=== PATIENT | male | born 1955 | race Caucasian/White ===

== ENCOUNTER 2023-06-16 07:48 | Outpatient (RCR) | payer MEDICARE, OTHER, SELFPAY ==
[2023-06-01 11:34] LABS: Mean Corp Hgb Conc. 33.5 g/dL (33.0-37.0); Mean Corpuscular Hgb 28.8 pg (27.0-31.0); Mean Corpuscular Volume 85.9 fL (80.0-94.0); Red Blood Cell Count 1.98 10^6/uL (4.70-6.10); Red Cell Dist. Width 14.9 % (11.5-14.5)
[2023-06-01 11:42] LABS: Hemoglobin 5.7 g/dL (13.0-18.0)
[2023-06-01 12:25] LABS: % Basophils 0.3 % (0-2); % Immature Granulocytes 1.3 % (0-0.5); % Lymphocytes 32.8 % (20.5-51.1); % Neutrophils 55.6 % (42.2-75.2); Absolute Monocytes 0.3 10^3/uL (0.1-0.6); Absolute Neutrophils 1.7 10^3/uL (1.4-6.5); Nucleated Red Blood Cells % 0 % (-)
[2023-06-01 13:40] LABS: Platelet Count 4 10^3/uL (130-400)
[2023-06-16] VITALS (7 sets, daily range): BP systolic 99–122; BP diastolic 45–60
== END 2023-06-29 23:59 | disposition home or self-care (01) ==
LOC: OID 07:48
PROVIDERS: ATTENDING PHYSICIAN Internal Medicine Hematology & Oncology; FAMILY PHYSICIAN Family Medicine
DX: D64.9 Anemia, unspecified (principal); D46.A Refractory cytopenia with multilineage dysplasia (principal); D61.818 Other pancytopenia
CPT/HCPCS: 36415; 36430; 85025; 86850; 86900; 86901; 86920; P9016

== ENCOUNTER 2023-06-28 18:05 | Inpatient (IN) | payer MEDICARE, OTHER, SELFPAY ==
[2023-06-28] VITALS (14 sets, daily range): BP systolic 102–115; BP diastolic 48–58; BMI 32.3
--- NOTE | 2023-06-28 16:15 | ED.GENMED ---
History of Present Illness
General
Chief Complaint: Abnormal Lab Value
Source: patient
Exam Limitations: none
Time Seen by Provider: 06/28/23 15:47
Nursing documentation reviewed up to this point in time: agreed with
Travel History
Have you had any contact with someone who has COVID-19?: No
Do you have any symptoms of coronavirus? Fever > 100 degrees, chills, cough, shortness of breath, sore throat, loss of taste or smell, muscle aches, or headache?: No
History of Present Illness
History of Present Illness:
Patient to ED with complaint of weakness, fatigue, dizziness, palpitations. Currently receiving treatment for myelodysplastic syndrome. Follows with Dr. Jensen. He was seen in ED Jun 01 for platelet and PRBC tranfusion. He states he was
transfused again 2 weeks later. Today was feeling poorly. Had outpatient labs completed which reveal Hgb 5.1, hct 15, platelets 1, wbc1.8. No fever/chills. Brought self to ED for eval.
Past History
Past History
ED Past Medical History: Asthma and Other (Myelodysplastic syndrome)
ED Past Surgical History: Cholecystectomy
Social History
Tobacco: Non-smoker
Alcohol: None
Drug: None
Personal:
Living: with family
Review of Systems
Review of Systems
Allergies reviewed?: Yes
All Other Systems: ROS reviewed and negative except as documented in HPI and ROS
Constitutional: Reports fatigue
EENT: Reports no symptoms
Respiratory: Reports no symptoms
Cardiac: Reports no symptoms
ABD/GI: Reports no symptoms
: Reports no symptoms
Musculoskeletal: Reports no symptoms
Skin: Reports no symptoms
Neurological: Reports dizzy and weakness
Psychiatric: Reports no symptoms
Phy Exam
General Physical Exam
General Presentation: well appearing and mild distress
General age: appears stated age
General Skin: warm
General Habitus: normal
General Mental: alert
Cardiovascular Exam
Cardiovascular Exam: regular rate/rhythm and no edema
Pulmonary Exam
Pulmonary Exam: lungs clear and no respiratory distress
Gastrointestinal Exam
Gastrointestinal Exam: normal bowel sounds, non tender, soft and no organomegaly
Musculoskeletal Exam
Musculoskeletal Exam: full ROM and neuro vasc intact
Skin Exam
Skin Exam: normal color, warm/dry and no rash
Psychiatric Exam
Psychiatric Exam: normal mood/affect
Course
Orders/Labs/Results
Orders:
Orders
06/28/23 Dinner
Regular
At Your Request: Limited, Bellows Filler Required
06/28/23 16:04
* Blood Bank Products Urgent
Blood Bank Products: *Packed RBC Leuko(PRBC's)
Quantity: 2
Transfuse Today: Yes
Reason: Anemia
06/28/23 16:07
* Blood Bank Products Urgent
Blood Bank Products: *Plt Single Donor Leuko
Quantity: 1
Transfuse Today: Yes
Reason: Anemia
06/28/23 16:40
CBC/With Diff [Complete Blood Count/With Diff] Urgent
Comprehensive Metabolic Panel Urgent
06/28/23 16:41
Type And Crossmatch Urgent
06/28/23 17:30
Admit/Transfer Patient As Directed
Co-Sign Provider:
Level of Care: Inpatient admission
Assign to:: Telemetry
Physician / Group: hospitalist-Alexander
Diagnosis: symptomatic anemia/thrombocytopenia/MDS
Reason for Telemetry: Arrhythmia
Date to Stop Telemetry: 07/01/23
Time to Stop Telemetry: 11:00
Reason for Hospitalization: needs blood and platelet transfusions
Expected length of stay greater than two midnights?: No
ELOS- Estimated Length of Stay in days: 2
I certify the patient meets the requirements for IP care: Yes
06/28/23 17:32
Code Status As Directed
Resuscitation Status: Full Code
06/28/23 20:56
Acetaminophen [Tylenol] 650 mg PO Q4HPRN PRN
Bisacodyl [Dulcolax] 5 mg PO DAILYPRN PRN
06/28/23 20:56
HEMATOLOGY CONSULT Routine
Consulting Provider: Brian Aguilar
Was physician already notified: Yes
VTE Contraindication Routine
VTE Mechanical Device Contraindication: Low Risk- LOS < 2 days
Pharmocologic Contraindication: Low platelet count
Risk assessment completed and pt is low risk: Yes
Activity As Directed
Activity Level: As Tolerated
Vital Signs As Directed
Frequency: Per unit guidelines
Pt Eval And Treat Routine
Activity Level: Out of Bed-Early Mobility
06/29/23 06:00
Basic Metabolic Panel IN AM
Complete Blood Count/With Diff IN AM
Magnesium IN AM
07/01/23 11:00
DC Protocol for Telemetry ONCE
Abnormal Lab Results
06/28/23 06/28/23
16:40 16:41
WBC 1.5 L* 10^3/uL
(4.8-10.8)
RBC 1.47 L 10^6/uL
(4.70-6.10)
Hgb 4.4 L* g/dL
(13.0-18.0)
Hct 13.1 L* %
(39.0-52.0)
RDW 14.6 H %
(11.5-14.5)
Plt Count 1 L* 10^3/uL
(130-400)
Abs Immat Gran (auto) 0.2 H 10^3/uL
(0-0.05)
Absolute Neuts (auto) 0.5 L* 10^3/uL
(1.4-6.5)
Absolute Lymphs (auto) 0.7 L 10^3/uL
(1.2-3.4)
Immature Gran % 11.6 H %
(0-0.5)
Neutrophils % 34.0 L %
(42.2-75.2)
BUN 31 H mg/dl
(9-20)
Glucose 122 H mg/dl
(70-99)
AST 13 L U/L
(17-59)
Total Protein 5.7 L g/dl
(6.3-8.2)
Albumin 3.3 L g/dl
(3.5-5.0)
Crossmatch IS Only See Detail
06/28/23 16:40
06/28/23 16:40
Vital Signs
Initial and Last Documented VS:
Initial Vital Signs
Temp Pulse Resp BP Pulse Ox
98.9 F 75 16 110/56 98
06/28/23 15:33 06/28/23 15:33 06/28/23 15:33 06/28/23 15:33 06/28/23 15:33
Last Documented Vital Signs
Temp Pulse Resp BP Pulse Ox
98.5 F 81 18 103/48 96
06/28/23 23:07 06/28/23 23:07 06/28/23 23:07 06/28/23 23:07 06/28/23 21:39
*Critical Care Note
Total Time (30-74mins, 75-104mins- exclusive of procedures): Not Applicable
Update Note
Update Note:
Patient to ED with complaint of weakness, fatigue, dizziness, palpitations. Hx of myelodysplastic syndrome. Hg 5.1, platelets 1, wbc 1.8. Transfusion PRBC and platelets initiated in dept. Will admit to hospitalist for symptomatic anemia.
Yoly notified of plan.
ED Attending Note
-
Portions of this chart may have been created with voice recognition software.� Occasional wrong word or��sound alike� substitutions may have occurred due to the inherent limitations of voice recognition software.
Discharge Plan
Departure
Patient Disposition: Admit
Date of Disposition: 06/28/23
Time of Disposition: 16:21
Presentation/result/management discussed w/ accepting MD/DO: Hospitalist
Patient with high blood pressure during this ER visit?: No
Condition: Fair
Covid-19: Not Applicable
Discharge Problem:
Myelodysplastic syndrome, Symptomatic anemia, Thrombocytopenia
Interventions
Interventions:
*Risk Screen - Suicide Last Done: 06/28/23 15:33
*General Assessment Last Done: 06/28/23 15:33
*Neglect/Abuse Screening Last Done: 06/28/23 15:33
ED- Fall Risk Assessment Last Done: 06/28/23 17:30
*ED COVID-19 Vaccine History Last Done: 06/28/23 17:29
*Nursing Disposition Last Done: 06/28/23 21:27
Discharge Date and Time
Discharge Date/Time: 06/28/23 21:29
[2023-06-28 16:58] LABS: % Immature Granulocytes 11.6 % (0-0.5); % Lymphocytes 48.3 % (20.5-51.1); % Monocytes 6.1 % (1.7-9.3); Absolute Immature Granulocytes 0.2 10^3/uL (0-0.05); Absolute Lymphocytes 0.7 10^3/uL (1.2-3.4); Absolute Monocytes 0.1 10^3/uL (0.1-0.6); Mean Corp Hgb Conc. 33.6 g/dL (33.0-37.0); Mean Corpuscular Hgb 29.9 pg (27.0-31.0); Mean Corpuscular Volume 89.1 fL (80.0-94.0); Nucleated Red Blood Cells % 0 % (-); Red Blood Cell Count 1.47 10^6/uL (4.70-6.10); Red Cell Dist. Width 14.6 % (11.5-14.5)
[2023-06-28 17:11] LABS: ALT (SGPT) 11 U/L (0-50); AST (SGOT) 13 U/L (17-59); Albumin 3.3 g/dl (3.5-5.0); Alkaline Phosphatase 68 U/L (38-126); Blood Urea Nitrogen 31 mg/dl (9-20); Calcium 8.4 mg/dl (8.4-10.2); Carbon Dioxide 27 mmol/L (22-30); Chloride 105 mmol/L (98-107); Glucose 122 mg/dl (70-99); Sodium 136 mmol/L (135-145); Total Protein 5.7 g/dl (6.3-8.2); eGFR 59.47
[2023-06-28 17:15] LABS: Hematocrit 13.1 % (39.0-52.0); Hemoglobin 4.4 g/dL (13.0-18.0); Platelet Count 1 10^3/uL (130-400); White Blood Cell Count 1.5 10^3/uL (4.8-10.8)
[2023-06-28 17:33] LABS: Absolute Neutrophils 0.5 10^3/uL (1.4-6.5)
--- NOTE | 2023-06-28 17:37 | HPS.HSE ---
Family Physician
-
Family Physician: Meliton Gay
Chief Complaint
-
Weak and tired
History of Present Illness
Patient is a 67-year-old male with a history of myelodysplastic syndrome and sees Dr. Aguilar from [facility]. Patient felt weak and had trouble getting out of bed today. He was able to get dressed but did call his career advisor who
recommended getting blood work. Outpatient labs showed white blood cell count of 1.8 confirmatory value 1.5, hemoglobin 5.1 confirmatory value 4.4, platelet count 1000 confirmatory count 1000. Patient denies any nosebleeds, gum bleeding, GI
bleeding or bruising. Patient is being admitted for platelet and blood transfusions.
Medical History
Past Medical History
Past Medical History: Reports Other
Additional Past Medical History:
Myelodysplastic syndrome
Past Surgical History: Reports Other
Additional Past Surgical History:
Unknown
Social History
Tobacco: Non-smoker
Alcohol: None
Drug: None
Living: With Family
Family History
Family History: Other (None per patient)
Allergies / Home Medications
Allergies reflects when Allergies were last updated in [employer].
Home Medications with original date entered in [employer]
Allergy/Medication List:
Allergies
Allergy/AdvReac Type Severity Reaction Status Date / Time
Horse/Equine Containing Allergy Unknown Verified 06/28/23 15:33
Products
Home Medications
bisacodyl 5 mg tablet,delayed release 5 mg PO DAILY PRN constipation 06/16/23
Aranesp 1 dose SC PRN PRN leukemia 06/28/23
azacitidine 100 mg solution for injection (Vidaza) 0 mg IV .ASDIRECTD Cancer 06/28/23
Review of Systems
-
History Source: Patient
A 12 point ROS was completed and negative except as noted: Yes
Constitutional: Reports No Symptoms
EENT: Reports No Symptoms
Respiratory: Denies Trouble Breathing
Cardiac: Denies Chest Pain
Abdomen/GI: Reports Nausea and Constipated; Denies Abdominal Pain, Vomiting, Diarrhea, Bloody Stools or Black Stools
: Reports No Symptoms
Musculoskeletal: Reports No Symptoms
Skin: Reports No Symptoms
Neurological: Reports Other (Lightheaded)
Endocrine: Reports No Symptoms
Hematologic/Lymphatic: Reports No Symptoms
Psych: Reports No Symptoms
Physical Exam
Vital Signs
Vital Signs
Temp Pulse Resp BP Pulse Ox
98.9 F 75 16 110/56 98
06/28/23 15:33 06/28/23 15:33 06/28/23 15:33 06/28/23 15:33 06/28/23 15:33
Physical Exam
General: Well Developed, Well Nourished, No Apparent Distress and Other (Pale/sallow appearing)
HEENT: NormoCephalic and Anicteric; No Oxygen
Respiratory: Clear; No Wheezes, Rales, Rhonchi or Crackles
Cardiac: S1/S2, Regular Rhythm and Tachycardia
GI: Soft, Non Tender, Non Distended and Normal Bowel Sounds
Rectal: Deferred by Provider
Musculoskeletal: No Clubbing and No Cyanosis; No No Edema (Trace to 1+ lower extremity edema bilaterally)
Skin: Warm and Other (Abdominal bruising from where he states he gets his subcutaneous injections for his MDS)
Neuro: Awake and Alert
Psych: Calm
Laboratory Results
-
06/28/23 16:40
06/28/23 16:40
Laboratory Results
Total Bilirubin 1.0 mg/dl (0.2-1.3) 06/28/23 16:40
AST 13 U/L (17-59) L 06/28/23 16:40
ALT 11 U/L (0-50) 06/28/23 16:40
Alkaline Phosphatase 68 U/L (38-126) 06/28/23 16:40
Impression/Plan
-
Patient is a 67-year-old male
Symptomatic anemia due to myelodysplastic syndrome--patient's hemoglobin is 5.1 this morning and 4.4 this afternoon--ADMIT--we will transfuse 2 units of packed red blood cells (ordered by emergency department, consent obtained in ED as well)--we
will also transfuse 1 unit of platelets--consult hematology--recheck counts in the morning--consult PT
Dinh cytopenia due to myelodysplastic syndrome --patient denies any fevers or chills, he is neutropenic and without fever--would hold on antibiotics and cultures at this time unless fever develops
Constipation--Dulcolax as needed
DVT prophylaxis--patient low risk
CODE STATUS--full code
--- NOTE | 2023-06-28 21:45 | PTCARENOTE ---
Received pt from ED via stretcher. Pt ambulated to bed independently. AAOx3. No complaints of pain. VSS. 1 unit PRBC infusing. Pt stated, 'I get lightheaded and dizzy sometimes but that happens when my levels are too low'. Telemetry placed and
reading NSR. Assessed and oriented to room. Pt verbalized understanding of call rahman. Call rahman within in close reach. Will continue to monitor.
--- NOTE | 2023-06-28 23:11 | PTCARENOTE ---
1 unit PRBC's infusing. No signs or symptoms of infusion reaction. Pt resting comfortably in bed. Will continue to monitor.
[2023-06-29] VITALS (15 sets, daily range): BP systolic 102–141; BP diastolic 49–98
[2023-06-29 06:34] LABS: % Lymphocytes 63.2 % (20.5-51.1); % Monocytes 2.9 % (1.7-9.3); % Neutrophils 33.9 % (42.2-75.2); Absolute Lymphocytes 0.9 10^3/uL (1.2-3.4); Mean Corpuscular Hgb 29.3 pg (27.0-31.0); Mean Corpuscular Volume 86.2 fL (80.0-94.0); Mean Platelet Volume 9.7 fL (7.4-10.4); Nucleated Red Blood Cells % 0 % (-); Red Blood Cell Count 2.25 10^6/uL (4.70-6.10); Red Cell Dist. Width 14.4 % (11.5-14.5)
[2023-06-29 06:43] LABS: Hematocrit 19.4 % (39.0-52.0); Hemoglobin 6.6 g/dL (13.0-18.0); White Blood Cell Count 1.4 10^3/uL (4.8-10.8)
[2023-06-29 06:44] LABS: Platelet Count 5 10^3/uL (130-400)
[2023-06-29 06:56] LABS: Blood Urea Nitrogen 30 mg/dl (9-20); Calcium 8.1 mg/dl (8.4-10.2); Carbon Dioxide 26 mmol/L (22-30); Chloride 103 mmol/L (98-107); Estimated Creatinine Clearance 69 ml/min; Glucose 93 mg/dl (70-99); Potassium 3.9 mmol/L (3.5-5.1); Sodium 136 mmol/L (135-145); eGFR > 60.00
--- NOTE | 2023-06-29 06:59 | PTCARENOTE ---
Lab informed this RN of critical lab values. Critical lab values include: WBC=1.4, Hgb= 6.6, Hct=19.4, and Plt=5. Hospitalist made aware. Will inform dayshift RN of information.
[2023-06-29 07:53] LABS: Absolute Neutrophils 0.5 10^3/uL (1.4-6.5)
--- NOTE | 2023-06-29 08:24 | CON.ONC ---
Impression
Impression
Severe pancytopenia without fever/bleeding
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
Plan
Plan
Transfuse to support to get HgB > 7.5, PLT > 15,000 then stable for D/C.
PLT may not respond to transfusions as suspect alloimmunization.
After 2nd unit, if no response, still okay to D/C with close CBC F/U next Tuesday and bleeding precautions.
Prob needs allo transplant evaluation but await hematologic recovery. Typically counts lowest nicholas around cycle # 4 which is where he is now.
Patient History
History of Present Illness
CC: Weakness and severe pancytopenia
HPI:
67-year-old male with Refractory cytopenia with multilineage dysplasia - myelodysplastic syndrome. Called feeling weak and had trouble getting out of bed. Sent for outpatient labs showed white blood cell count of 1.8 confirmatory value 1.5,
hemoglobin 5.1 confirmatory value 4.4, platelet count 1000 confirmatory count 1000. Patient denies any fevers/chills, nosebleeds, gum bleeding, GI bleeding or bruising. Patient is being admitted for platelet and blood transfusions. Some bruises
abdominal wall where he gets Vidaza injections. Last cycle # 4 06/13-06/17 with longacting G-CSF 06/20.
Past-Medical/Surgical History
PMH:
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
COPD
Basal cell cancer
Osteoarthritis
GERD
Obesity
PSH:
Left hip replacement 01/2023
Cataracts 2018
cholecystectomy 2018
ear canal drilled 1996
SH
Tobacco: Non-smoker
Alcohol: None
Drug: None
Family History: Other (None per patient)
Patient Medication
Medication Instructions Recorded Confirmed Last Taken Type
bisacodyl 5 mg tablet,delayed 5 mg PO DAILY PRN constipation 06/16/23 06/28/23 06/27/23 History
release
Aranesp 1 dose SC PRN PRN leukemia 06/28/23 06/28/23 Unknown History
azacitidine 100 mg solution for 0 mg IV .ASDIRECTD Cancer 06/28/23 06/28/23 Unknown History
injection (Vidaza)
Active Medications
Generic Name Dose Route Start Last Admin
Trade Name Freq PRN Reason Stop Dose Admin
Acetaminophen 650 mg 06/28/23 20:56
Acetaminophen 325 Mg Tablet PO 07/26/23 20:55
Q4HPRN PRN
mild pain/COLBY/temp> 100.4F
Bisacodyl 5 mg 06/28/23 20:56
Bisacodyl 5 Mg Enteric Coated Tablet PO 07/26/23 20:55
DAILYPRN PRN
constipation
Sodium Chloride 0 flush 06/28/23 21:00
Sodium Chloride 0.9% (Flush) Syringe IV 07/26/23 20:59
PER PROTOCOL MERVIN
Physical Exam
-
General: Well Developed and Well Nourished
HEENT: Negative Jaundice
Cardiology: Normal Sinus Rhythm, S1 and S2
Pulmonary: Clear
Musculoskeletal: No Clubbing, No Cyanosis and No Edema
Extremities: No C/C/E
Psych: Calm
Labs
Lab Results
WBC 1.4 10^3/uL (4.8-10.8) L* 06/29/23 06:08
RBC 2.25 10^6/uL (4.70-6.10) L 06/29/23 06:08
Hgb 6.6 g/dL (13.0-18.0) L* D 06/29/23 06:08
Hct 19.4 % (39.0-52.0) L* 06/29/23 06:08
MCV 86.2 fL (80.0-94.0) 06/29/23 06:08
MCH 29.3 pg (27.0-31.0) 06/29/23 06:08
MCHC 34.0 g/dL (33.0-37.0) 06/29/23 06:08
RDW 14.4 % (11.5-14.5) 06/29/23 06:08
Plt Count 5 10^3/uL (130-400) L* D 06/29/23 06:08
MPV 9.7 fL (7.4-10.4) 06/29/23 06:08
Abs Immat Gran (auto) 0.0 10^3/uL (0-0.05) 06/29/23 06:08
Absolute Neuts (auto) 0.5 10^3/uL (1.4-6.5) L* 06/29/23 06:08
Absolute Lymphs (auto) 0.9 10^3/uL (1.2-3.4) L 06/29/23 06:08
Absolute Monos (auto) 0.0 10^3/uL (0.1-0.6) L 06/29/23 06:08
Absolute Eos (auto) 0.0 10^3/uL (0-0.7) 06/29/23 06:08
Absolute Basos (auto) 0.0 10^3/uL (0-0.2) 06/29/23 06:08
Immature Gran % 0.0 % (0-0.5) 06/29/23 06:08
Neutrophils % 33.9 % (42.2-75.2) L 06/29/23 06:08
Lymphocytes % 63.2 % (20.5-51.1) H 06/29/23 06:08
Monocytes % 2.9 % (1.7-9.3) 06/29/23 06:08
Eosinophils % 0.0 % (0-6) 06/29/23 06:08
Basophils % 0.0 % (0-2) 06/29/23 06:08
Creatinine 1.1 mg/dL (0.7-1.3) 06/29/23 06:08
Vital Signs
Vital Signs
Temp Pulse Resp BP Pulse Ox
98.6 F 73 17 141/98 98
06/29/23 07:00 06/29/23 07:00 06/29/23 07:00 06/29/23 07:00 06/29/23 07:00
--- NOTE | 2023-06-29 11:18 | CM ---
Patient seen at bedside with physician. Patient states that he lives in a 2 story home with 5 roommates. Patient states he has a car in the parking lot and that he has a walker at home that he does not use. Patient plan is for discharge home with no
needs. Patient PCP is Dr. Gay and he uses [facility] in [place]. Patient completed IMM and signed form placed on chart. Patient for possible discharge following transfusions per physician. CM will continue to follow for discharge planning needs.
Plan; home with no needs.
--- NOTE | 2023-06-29 11:41 | W.PN.HOSP.TC ---
Today's Communication/Plan
-
d/c after transfusions
Assessment / Plan
Assessment / Plan
pt is a 67 year old male
Symptomatic anemia due to myelodysplastic syndrome--patient's hemoglobin 4.4--s/p 2 units pRBC with rise to 6.6--transfuse 2 more--s/p 1 unit of platelets with rise from 1 to 5, will transfuse 1 more--apprec hematology--ok for d/c after transfusion
Dinh cytopenia due to myelodysplastic syndrome --patient denies any fevers or chills, he is neutropenic and without fever--would hold on antibiotics and cultures at this time unless fever develops
Constipation--Dulcolax as needed
DVT prophylaxis--patient low risk
CODE STATUS--full code
Anticipated Discharge: Today
Subjective/Interval History
-
Date of Service: June 29, 2023
pt denies c/o
Objective Data
-
Labs:
Laboratory Results
06/29/23
06:08
WBC 1.4 L*
Hgb 6.6 L* D
Hct 19.4 L*
Plt Count 5 L* D
Sodium 136
Potassium 3.9
Chloride 103
Carbon Dioxide 26
BUN 30 H
Creatinine 1.1
Glucose 93
Calcium 8.1 L
Vital Signs:
Selected Entries
06/28/23
19:00
Temp 99.3 F
Vital Signs
Temp Pulse Resp BP Pulse Ox
98.7 F 77 18 110/54 98
06/29/23 11:39 06/29/23 11:39 06/29/23 11:39 06/29/23 11:39 06/29/23 11:39
I&O
06/28/23 06/29/23 06/30/23
06:59 06:59 06:59
Intake Total 1009 / 1009 250 / 250
Balance 1009 / 1009 250 / 250
Review of Systems
-
All other systems: Reviewed and negative
Physical Exam
-
General: Well Developed, Well Nourished and No Apparent Distress
HEENT: Normocephalic and Atraumatic
Respiratory: Clear to Auscultation; Negative Wheezes, Rales, Rhonchi or Crackles
Cardiac: Regular Rhythm and S1/S2; Negative Murmur
GI: Soft, Nontender, Nondistended and Normal Bowel Sounds
Musculoskeletal: No Clubbing, No Cyanosis and No Edema
Skin: Warm
Neuro: Awake
--- NOTE | 2023-06-29 18:42 | W.DCSUMMARY ---
Discharge Summary
Discharge Data
Date of Admission: 06/28/23
Date of Discharge: 06/29/23
-
Pending Results: No
Hospital Course
Primary care physician : Meliton Gay
Principal Discharge diagnosis : Symptomatic anemia due to myelodysplastic syndrome
Chronic Discharge diagnosis : Pancytopenia due to myelodysplastic syndrome, constipation
Hospital Course : Patient was a 67-year-old male with a history of myelodysplastic syndrome and sees Dr. Aguilar from [facility]. Patient felt weak and had trouble getting out of bed on the day of admission. He was able to get dressed,
but did call his technical solution architect who recommended getting blood work. Outpatient labs showed a white blood cell count of 1.8 with a confirmatory value of 1.5, hemoglobin of 5.1 with a confirmatory value of 4.4, platelet count of 1000 with a
confirmatory count of 1000. The patient denies any nosebleeds, gum bleeding, GI bleeding or bruising. Patient was admitted.
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 Patient was consented for blood and was given 2 units of packed red blood cells and 1 pack of platelets. His hemoglobin
improved to 6.6 with his platelet count improving to 5000. He received 2 more units of packed red blood cells and another pack of platelets. He was cleared by hematology for discharge after those transfusions.
Problem #2: All other medical issues. These include Pancytopenia due to myelodysplastic syndrome, constipation. These medical issues were stable during his hospitalization. Medications were continued as able.
Patient is stable for discharge home at this time. If there are any questions regarding this dictation or his hospital stay, please not hesitate to call. Our office number is [phone].
Discharge Plan
-
Patient Disposition: Home (Routine Discharge)
Discharge Diagnosis/Procedures: Symptomatic anemia due to myelodysplastic syndrome, pancytopenia due to myelodysplastic syndrome, constipation
Condition: Good
Diet: As tolerated and Regular
Activity: As tolerated
Driving Restrictions: As prior to admission
Bathing Restrictions: None
Referrals:
Meliton Gay MD [Family Provider] - in less than 1 week
Prescriptions:
Continued
bisacodyl 5 mg Tablet,Delayed Release (Dr/Ec)
5 mg PO DAILY PRN (Reason: constipation)
Aranesp
1 dose SC PRN PRN (Reason: leukemia)
Patient Comments:
per box directions: 0.75 sc q2w or 0.25 sc weekly
azacitidine [Vidaza] 100 mg Recon Soln
0 mg IV .ASDIRECTD
Rx Instructions:
Takes for 5 days a month
Discharge Orders:
Discharge Patient (As Directed); Ordered 06/29/23
Ordered By: Nay Munoz
== END 2023-06-29 19:14 | disposition home or self-care (01) | DRG 812 ==
LOC: 3 WEST ACU 18:05
PROVIDERS: Nurse Practitioner; ADMITTING PHYSICIAN Internal Medicine; CONSULT PHYSICIAN Internal Medicine Hematology & Oncology; EMERGENCY PHYSICIAN Emergency Medicine; FAMILY PHYSICIAN Family Medicine
PROC: 30233R1 Transfusion of Nonautologous Platelets into Peripheral Vein, Percutaneous Approach (ICD-10-PCS; 2023-06-28)
PROC: 30233N1 Transfusion of Nonautologous Red Blood Cells into Peripheral Vein, Percutaneous Approach (ICD-10-PCS; 2023-06-28)
DX: D46.9 Myelodysplastic syndrome, unspecified (principal); D61.818 Other pancytopenia; D46.A Refractory cytopenia with multilineage dysplasia; D63.8 Anemia in other chronic diseases classified elsewhere; K59.00 Constipation, unspecified; D69.59 Other secondary thrombocytopenia
CPT/HCPCS: 36415; 36430; 80048; 80053; 83735; 85025; 86850; 86900; 86901; 86920; 99285; P9016; P9073

== ENCOUNTER 2023-07-19 11:26 | Outpatient (RCR) | payer MEDICARE, OTHER, SELFPAY ==
[2023-07-08 10:25] LABS: % Basophils 0.6 % (0-2); % Immature Granulocytes 0.6 % (0-0.5); % Lymphocytes 42.7 % (20.5-51.1); % Neutrophils 53.1 % (42.2-75.2); Absolute Lymphocytes 0.7 10^3/uL (1.2-3.4); Absolute Monocytes 0.1 10^3/uL (0.1-0.6); Absolute Neutrophils 0.9 10^3/uL (1.4-6.5); Hematocrit 24.7 % (39.0-52.0); Hemoglobin 8.6 g/dL (13.0-18.0); Mean Corp Hgb Conc. 34.8 g/dL (33.0-37.0); Mean Corpuscular Hgb 30.6 pg (27.0-31.0); Mean Corpuscular Volume 87.9 fL (80.0-94.0); Mean Platelet Volume 11.9 fL (7.4-10.4); Nucleated Red Blood Cells % 0 % (-); Platelet Count 34 10^3/uL (130-400); Red Blood Cell Count 2.81 10^6/uL (4.70-6.10); Red Cell Dist. Width 14.1 % (11.5-14.5)
[2023-07-08 13:10] LABS: White Blood Cell Count 1.6 10^3/uL (4.8-10.8)
[2023-07-18 11:20] LABS: % Basophils 0.7 % (0-2); % Immature Granulocytes 0.7 % (0-0.5); % Monocytes 5.3 % (1.7-9.3); % Neutrophils 47.3 % (42.2-75.2); Absolute Lymphocytes 0.7 10^3/uL (1.2-3.4); Absolute Monocytes 0.1 10^3/uL (0.1-0.6); Absolute Neutrophils 0.7 10^3/uL (1.4-6.5); Hematocrit 21.1 % (39.0-52.0); Hemoglobin 7.3 g/dL (13.0-18.0); Mean Corp Hgb Conc. 34.6 g/dL (33.0-37.0); Mean Corpuscular Hgb 29.8 pg (27.0-31.0); Mean Corpuscular Volume 86.1 fL (80.0-94.0); Nucleated Red Blood Cells % 0 % (-); Red Blood Cell Count 2.45 10^6/uL (4.70-6.10); Red Cell Dist. Width 14.4 % (11.5-14.5); White Blood Cell Count 1.5 10^3/uL (4.8-10.8)
[2023-07-18 14:53] LABS: Platelet Count 14 10^3/uL (130-400)
[2023-07-19 12:08] VITALS: BP 124/53
[2023-07-19 12:26] VITALS: BP 106/60
[2023-07-19 13:16] VITALS: BP 114/59
[2023-07-19 13:31] VITALS: BP 114/59
[2023-07-19 13:49] VITALS: BP 113/60
[2023-07-19 15:26] VITALS: BP 105/56
== END 2023-07-28 23:59 | disposition home or self-care (01) ==
LOC: OID 11:26
PROVIDERS: Nurse Practitioner Adult Health; ATTENDING PHYSICIAN Internal Medicine Hematology & Oncology; FAMILY PHYSICIAN Family Medicine
DX: D64.9 Anemia, unspecified (principal); D61.818 Other pancytopenia
CPT/HCPCS: 36415; 36430; 85025; 86850; 86900; 86901; 86920; P9016; P9073

== ENCOUNTER 2023-07-25 13:50 | Observation (INO) | payer MEDICARE, OTHER, SELFPAY ==
[2023-07-25] VITALS (21 sets, daily range): BP systolic 101–115; BP diastolic 45–58; BMI 31.3
--- NOTE | 2023-07-25 10:36 | ED.GENMED ---
History of Present Illness
<Tanya Flores PA-C - Last Filed: 07/25/23 12:46>
General
Chief Complaint: Fainting Sensation
Source: patient
Exam Limitations: none
Time Seen by Provider: 07/25/23 10:35
Nursing documentation reviewed up to this point in time: agreed with
Travel History
Have you had any contact with someone who has COVID-19?: No
Do you have any symptoms of coronavirus? Fever > 100 degrees, chills, cough, shortness of breath, sore throat, loss of taste or smell, muscle aches, or headache?: No
History of Present Illness
History of Present Illness:
67-year-old male with a history of myelodysplastic syndrome presenting to emergency department today with feelings of fatigue and presyncopal symptoms that started yesterday. Patient states that he feels very lightheaded and slightly dizzy, and
feels like he may pass out. He states that he usually feels this way when he becomes very anemic from his mild dysplastic syndrome. He states that normally requires a transfusion with this. Patient denies any fevers or chills, coughing, shortness
of breath. He did have an episode of chest pain last night that lasted few minutes and quickly subsided. He also states that he has had palpitations and his heart has been beating faster than usual. Patient denies abdominal pain, nausea, vomiting.
Patient denies bleeding from the gums, hematuria. Patient is manage by Dr. Aguilar with [facility] for his mild dysplastic syndrome. Patient was diagnosed about a year ago. Patient states that he was on Aranesp for about a year and had
to be recently placed on Vidaza 4 months ago. Patient had follow-up with [facility] 6 days ago. In addition to his chemotherapeutic agents, patient also take one 325 mg capsule aspirin daily, Zofran, and Tylenol.
Past History
<Tanya Flores PA-C - Last Filed: 07/25/23 12:46>
Past History
ED Past Medical History: Asthma and Other (Myelodysplastic syndrome)
ED Past Surgical History: Cholecystectomy
Social History
Tobacco: Non-smoker
Alcohol: None
Drug: None
Personal:
Living: with family
Review of Systems
<Tanya Flores PA-C - Last Filed: 07/25/23 12:46>
Review of Systems
All Other Systems: ROS reviewed and negative except as documented in HPI and ROS
Phy Exam
<Tanya Flores PA-C - Last Filed: 07/25/23 12:46>
Physical Exam
Physical Exam:
General: patent is well appearing and in no acute distress
Skin: pallor, no areas of ecchymosis, no petechiae
Cardiac: regular rate and rhythm, no murmurs
Peripheral Vascular: no lower extremity edema
Pulm: normal respiratory effort, no wheezes, rales, or rhonchi
Abdomen: abdomen is non-distended, no tenderness to palpation
Neuro: AAOx3. CN II-XII intact. No focal neurologic deficits.
Course
<Tanya Flores PA-C - Last Filed: 07/25/23 12:46>
Orders/Labs/Results
Orders:
Orders
07/25/23 10:40
Cardiac Monitoring- Treatment ONCE
EKG- Treatment ONCE
07/25/23 10:41
Electrocardiogram (*1) Urgent
Reason for Study: Syncope
07/25/23 11:35
Complete Blood Count/With Diff Urgent
Comprehensive Metabolic Panel Urgent
07/25/23 12:08
* Blood Bank Products Urgent
Blood Bank Products: *Packed RBC Leuko(PRBC's)
Quantity: 2
Transfuse Today: Yes
Is product needed for scheduled surgery?: No
Reason: Anemia
07/25/23 12:09
Add On- LAB Urgent
Tests Added?: type and cross
07/25/23 12:19
Type And Crossmatch Urgent
07/25/23 12:23
* Blood Bank Products Urgent
Blood Bank Products: *Plt Single Donor Leuko
Quantity: 2
Transfuse Today: Yes
Is product needed for scheduled surgery?: No
Reason: Thrombocytopenia
Abnormal Lab Results
07/25/23
11:35
WBC 1.3 L* 10^3/uL
(4.8-10.8)
RBC 1.51 L 10^6/uL
(4.70-6.10)
Hgb 4.6 L* g/dL
(13.0-18.0)
Hct 13.5 L* %
(39.0-52.0)
RDW 14.6 H %
(11.5-14.5)
Plt Count 2 L* 10^3/uL
(130-400)
BUN 24 H mg/dl
(9-20)
Glucose 124 H mg/dl
(70-99)
Total Bilirubin 1.4 H mg/dl
(0.2-1.3)
AST 10 L U/L
(17-59)
Total Protein 5.6 L g/dl
(6.3-8.2)
Albumin 3.0 L g/dl
(3.5-5.0)
07/25/23 11:35
07/25/23 11:35
Vital Signs
Initial and Last Documented VS:
Initial Vital Signs
Temp Pulse Resp BP Pulse Ox
98.7 F 85 20 101/45 98
07/25/23 10:29 07/25/23 10:29 07/25/23 10:29 07/25/23 10:29 07/25/23 10:29
Last Documented Vital Signs
Temp Pulse Resp BP Pulse Ox
98.7 F 83 15 112/54 98
07/25/23 10:29 07/25/23 11:30 07/25/23 11:30 07/25/23 11:30 07/25/23 10:29
<Gaston Helton DO Yoly - Last Filed: 07/25/23 11:11>
Orders/Labs/Results
Orders:
Orders
07/25/23 10:40
Cardiac Monitoring- Treatment ONCE
EKG- Treatment ONCE
07/25/23 10:41
Electrocardiogram (*1) Urgent
Reason for Study: Syncope
07/25/23 11:35
Complete Blood Count/With Diff Urgent
Comprehensive Metabolic Panel Urgent
07/25/23 12:08
* Blood Bank Products Urgent
Blood Bank Products: *Packed RBC Leuko(PRBC's)
Quantity: 2
Transfuse Today: Yes
Is product needed for scheduled surgery?: No
Reason: Anemia
07/25/23 12:09
Add On- LAB Urgent
Tests Added?: type and cross
07/25/23 12:19
Type And Crossmatch Urgent
07/25/23 12:23
* Blood Bank Products Urgent
Blood Bank Products: *Plt Single Donor Leuko
Quantity: 2
Transfuse Today: Yes
Is product needed for scheduled surgery?: No
Reason: Thrombocytopenia
Abnormal Lab Results
07/25/23
11:35
WBC 1.3 L* 10^3/uL
(4.8-10.8)
RBC 1.51 L 10^6/uL
(4.70-6.10)
Hgb 4.6 L* g/dL
(13.0-18.0)
Hct 13.5 L* %
(39.0-52.0)
RDW 14.6 H %
(11.5-14.5)
Plt Count 2 L* 10^3/uL
(130-400)
BUN 24 H mg/dl
(9-20)
Glucose 124 H mg/dl
(70-99)
Total Bilirubin 1.4 H mg/dl
(0.2-1.3)
AST 10 L U/L
(17-59)
Total Protein 5.6 L g/dl
(6.3-8.2)
Albumin 3.0 L g/dl
(3.5-5.0)
07/25/23 11:35
07/25/23 11:35
Vital Signs
Initial and Last Documented VS:
Initial Vital Signs
Temp Pulse Resp BP Pulse Ox
98.7 F 85 20 101/45 98
07/25/23 10:29 07/25/23 10:29 07/25/23 10:29 07/25/23 10:29 07/25/23 10:29
Last Documented Vital Signs
Temp Pulse Resp BP Pulse Ox
98.7 F 83 15 112/54 98
07/25/23 10:29 07/25/23 11:30 07/25/23 11:30 07/25/23 11:30 07/25/23 10:29
<Tanya Flores PA-C - Last Filed: 07/25/23 12:46>
MDM/Problems Addressed
Differential Diagnosis Includes:
ddx include anemia, thrombocytopenia, pancytopenia, hypoglycemia, arrhythmia, vasovagal syncope
MDM/Problems Addressed:
fatigue
lightheadedness
Chronic conditions affecting care: Kidney disease (mild renal insufficiency noted on office H+P 07/19/23) and Cancer (myelodysplastic syndrome)
Acute Exacerbation and/or Progression of Chronic Illness: Cancer (myelodysplastic syndrome )
<Tanya Flores PA-C - Last Filed: 07/25/23 12:46>
*Pulse Oximetry
Patient hypoxic: no
*Critical Care Note
Total Time (30-74mins, 75-104mins- exclusive of procedures): Not Applicable
Data Reviewed
Review of Other/Old Records Reveals: Records (Reviewed discharge summary from 06/29/2023, reviewed ER physician documentation from 06/28/2023, reviewed physician office H&P from 07/19/2023)
Source: patient
<Tanya Flores PA-C - Last Filed: 07/25/23 12:46>
Patient Management
Escalation/DeEscalation of care consider admission/obs:
This is a 67 y/o male with a hx of myelodysplastic syndrome, renal insufficiency presenting to the ER today with feelings of fatigue and presyncopal symptoms that started yesterday. Patient states that he feels very lightheaded and slightly dizzy,
and feels like he may pass out. Patient denies fevers or chills. On exam, patient is pale and ill appearing, no petechiae, no active sites of bleeding. On reviewing previous records, patient has been here many times for transfusions. Patient
recently discharged from here in late May for symptomatic anemia. Reviewed physician H&P from 07/19/2023, patient has refractory cytopenia with multilineage dysplasia and per oncology note, patient recommends transfusing for hemoglobin less than
8 and platelets less than 20. Patient is proceeding with cycle 5 of Vidaza currently and per oncology note, not uncommon to develop progressive cytopenias on cycle 3-6.
Patient found to have Hgb of 4.6, and platelet of 2 10^3/ul L. Will plan to transfuse 2 units RBCs and platelets. Oncologist nutrition services worker aware of case. Patient accepted by hospitalist team for further treatment and evaluation.
ED Attending Note
<Tanya Flores PA-C - Last Filed: 07/25/23 12:46>
-
Portions of this chart may have been created with voice recognition software.� Occasional wrong word or��sound alike� substitutions may have occurred due to the inherent limitations of voice recognition software.
<Gaston Frederick DO - Last Filed: 07/25/23 11:11>
ED Attending Note
Patient seen and examined by attending physician: Yes
I performed the substantive portion of visit, reviewed & personally made and approve the management plan that is documented in note by myself or LÓPEZ.: Yes
ED Attending Note:
I agree with Hope's note.
Pt with weakness, dizziness, sob with exertion which are all symptoms he has had with anemia. Pt has MDS and was recently admitted for similar symptoms. No bleeding of gums, epistaxsis.
VS--midly low bp
Pt is quit pale
Lungs: clear
Suspect pt with require tx. Disposition will depend on how many units he will need, if he will need plt's and if he has antibodies.
Discharge Plan
Departure
Patient Disposition: Admit
Date of Disposition: 07/25/23
Time of Disposition: 12:39
Admit to: Med/Surg
Admit to doctor: Dr. Gandhi
Presentation/result/management discussed w/ accepting MD/DO: Hospitalist
Patient with high blood pressure during this ER visit?: No
Condition: Good
Discharge Problem:
Myelodysplastic syndrome, Thrombocytopenia, Symptomatic anemia
Prescriptions:
No Action
bisacodyl 5 mg Tablet,Delayed Release (/Ec)
5 mg PO DAILY PRN (Reason: constipation)
azacitidine [Vidaza] 100 mg Recon Soln
159 mg SC DIRECTED
Patient Comments:
07/25/2023, next dose: 08/08/2023. Contacted OID Department to confirm dose and frequency.
Rx Instructions:
07/25/2023, takes daily for 5 days a month and repeats every 28 days.
Darbepoetin
500 mcg SC Q3W
Patient Comments:
07/25/2023, next dose: 07/29/2023; Contacted OID Department to confirm dose and frequency.
Referrals:
Meliton Gay MD [Family Provider] -
Interventions
Interventions:
*Risk Screen - Suicide Last Done: 07/25/23 11:06
*General Assessment Last Done: 07/25/23 11:06
*Neglect/Abuse Screening Last Done: 07/25/23 11:06
*ED COVID-19 Vaccine History Last Done: 07/25/23 10:33
ED- Cardiac Assessment Last Done: 07/25/23 11:06
ED- Neurological Assessment Last Done: 07/25/23 11:06
[2023-07-25 11:59] LABS: Mean Corp Hgb Conc. 34.1 g/dL (33.0-37.0); Mean Corpuscular Hgb 30.5 pg (27.0-31.0); Mean Corpuscular Volume 89.4 fL (80.0-94.0); Red Blood Cell Count 1.51 10^6/uL (4.70-6.10); Red Cell Dist. Width 14.6 % (11.5-14.5)
[2023-07-25 12:02] LABS: Hemoglobin 4.6 g/dL (13.0-18.0); White Blood Cell Count 1.3 10^3/uL (4.8-10.8)
[2023-07-25 12:03] LABS: Hematocrit 13.5 % (39.0-52.0); Platelet Count 2 10^3/uL (130-400)
[2023-07-25 12:04] LABS: ALT (SGPT) < 10 U/L (0-50); AST (SGOT) 10 U/L (17-59); Alkaline Phosphatase 65 U/L (38-126); Blood Urea Nitrogen 24 mg/dl (9-20); Calcium 8.5 mg/dl (8.4-10.2); Carbon Dioxide 25 mmol/L (22-30); Chloride 103 mmol/L (98-107); Glucose 124 mg/dl (70-99); Potassium 3.8 mmol/L (3.5-5.1); Sodium 137 mmol/L (135-145); Total Bilirubin 1.4 mg/dl (0.2-1.3); Total Protein 5.6 g/dl (6.3-8.2); eGFR > 60.00
--- NOTE | 2023-07-25 13:06 | HPS.HSE ---
Addendum entered and electronically signed by Hiram Chacko MD 07/25/23 16:12:
I saw and examined the patient.
The WIND DEVELOPMENT DIRECTOR or PA's note was reviewed and I agree with the note.
Comment:
67-year-old male with history of MDS, chronic constipation, pancreatitis, OA left hip, obesity. complaining of fatigue along with lightheadedness and dizziness with sensation of feeling he is going to pass out.��Patient has had similar symptoms when
he has had low hemoglobin. Was seen in 06/28/2023 and received additional 1 unit, and then 1 unit of platelets on July 19. Last dose of Vidaza, Darbeopoetin 07/08/23. Vitals grossly unremarkable, afebrile. Hemoglobin 4.6, white count 1.3, cannot
0.5 absolute neutrophils, platelets 2000. Plan�transfuse for symptomatic anemia, 2 units, and transfuse 1 packed platelets. Consult oncology. Follow CBC.
Original Note:
Family Physician
-
Family Physician: Meliton Gay
Chief Complaint
-
fatigue, dizziness
History of Present Illness
67-year-old male with history of MDS complaining of fatigue along with lightheadedness and dizziness with sensation of feeling he is going to pass out. He typically has low hemoglobin when he has the symptoms his transfusion of blood and platelets
was 06/28/2023 followed by additional 1 unit and 1 bag platelets July 19. He denies fever, chills, sore throat, headache chest pain, palpitations, abdominal pain, nausea, vomiting, diarrhea, urinary symptoms, recent illness. He follows with
Jeff from [facility]. He was diagnosed in 2022 and was on Aranesp for approximately 1 year recently placed on Vidaza 4 months ago. Other past medical history includes MDS, chronic constipation, pancreatitis, OA left hip, obesity.
Medical History
Past Medical History
Past Medical History: Reports Other
Additional Past Medical History:
MDS Dx 2022
chronic constipation
pancreatitis
OA left hip with history of hip replacement
obesity
Past Surgical History: Reports Cholecystectomy and Other (Colonoscopy 2018 benign, left hip replacement January 2022)
Social History
Tobacco: Non-smoker
Alcohol: None
Drug: None
Personal: Single
Living: With Family (Stepdaughter)
Employment: Retired
Family History
Family History: Other (Father did to see sepsis renal disorder age 85 mother 91 unsure sister possible skin cancer)
Allergies / Home Medications
Allergies reflects when Allergies were last updated in [facility].
Home Medications with original date entered in [facility]
Allergy/Medication List:
Allergies
Allergy/AdvReac Type Severity Reaction Status Date / Time
Horse/Equine Containing Allergy Unknown Verified 07/25/23 10:34
Products
Home Medications
bisacodyl 5 mg tablet,delayed release 5 mg PO DAILY PRN constipation 06/16/23
azacitidine 100 mg solution for injection (Vidaza) 159 mg SC DIRECTED Cancer 06/28/23
Darbepoetin 500 mcg SC Q3W 07/25/23
Review of Systems
-
History Source: Patient
A 12 point ROS was completed and negative except as noted: Yes
Constitutional: Reports Fatigue; Denies Fever or Chills
EENT: Denies Tearing, Sore Throat or Mouth Swelling
Respiratory: Denies Cough, Hemoptysis or Trouble Breathing
Cardiac: Denies Chest Pain, Diaphoresis, Palpitations or Syncope
Abdomen/GI: Denies Abdominal Pain, Nausea, Vomiting, Diarrhea, Constipated or Bloody Stools
: Denies Dysuria, Frequency, Flank Pain, Incontinence, Difficulty Voiding or Urgency
Musculoskeletal: Denies Joint Pain or Edema
Skin: Denies Itching or Rash
Neurological: Reports Dizzy and Weakness; Denies Headache or Numbness
Endocrine: Reports No Symptoms
Hematologic/Lymphatic: Reports No Symptoms
Psych: Reports Calm
Physical Exam
Vital Signs
Vital Signs
Temp Pulse Resp BP Pulse Ox
98.7 F 83 15 112/54 98
07/25/23 10:29 07/25/23 11:30 07/25/23 11:30 07/25/23 11:30 07/25/23 10:29
Physical Exam
General: Conversant and Other (Pale in color); No Pain, Fever or Chills
HEENT: NormoCephalic, Anicteric, PERRLA, No Ptosis and Other (Pale conjunctiva)
Respiratory: Clear; No Wheezes, Rales or Rhonchi
Cardiac: S1/S2 and Regular Rhythm; No Murmur, Rub, Gallop or Peripheral Edema
Breast: Deferred by me
GI: Soft, Non Tender, Non Distended and Normal Bowel Sounds
Rectal: Deferred by Provider
Genito-urinary: Deferred by me
Musculoskeletal: No Clubbing, No Cyanosis and No Edema
Skin: Warm and Dry; No Rash, Jaundice or Ulcers
Neuro: AO x 3, No Motor Deficits, Nonfocal/grossly intact and No Sensory Deficits; No Slurred Speech, Facial Droop or Tremors
Psych: Calm
Laboratory Results
-
07/25/23 11:35
07/25/23 11:35
Laboratory Results
Total Bilirubin 1.4 mg/dl (0.2-1.3) H 07/25/23 11:35
AST 10 U/L (17-59) L 07/25/23 11:35
ALT < 10 U/L (0-50) 07/25/23 11:35
Alkaline Phosphatase 65 U/L (38-126) 07/25/23 11:35
Impression/Plan
-
Impression/plan:
Admit to MedSurg
#Symptomatic anemia /thrombocytopenia due to myelodysplastic syndrome
Hgb 4.6 PLT 2
-Type and screen, obtain blood consent
-Transfused 2 units PRBCs, 1 pack platelets
-Consult oncology patient follows with Dr. Aguilar
-Hold Vidaza, Darbeopoetin last dose 07/08/23
-Follow CBC, BMP
EKG: NSR 79 bpm, QTc 444 MS otherwise normal.
#Chronic pancytopenia due to MDS
WBC 1.3
-Neutropenic without fever or chills
-Follow CBC
#Chronic constipation
-Bowel regimen as needed
DVT prophylaxis
Low risk due to severe thrombocytopenia
Full code
[2023-07-25 13:45] LABS: Anisocytosis 1+; Band Neutrophils 4 % (0-3); Hypochromasia 2+; Lymphocytes 52 % (20-51); Monocytes 4 % (2-9); Normal RBC Morphology No; Platelets Checked Yes; Polychromasia 1+; Segmented Neutrophils 40 % (42-75)
[2023-07-25 13:46] LABS: Ovalocytes 1+; Total Cells Counted 100
[2023-07-25 13:47] LABS: Absolute Neutrophils -Man Diff 0.5 10^3/uL (1.4-6.5)
--- NOTE | 2023-07-25 21:39 | CON.ONC ---
Impression
Impression
Agree with transfusing blood and platelets
No infectious symptoms or bleeding
It can take 4-6 cycles of Vidaza to see response, so far he does not appear to be responding. May warrant eval at [facility] for possible stem cell transplant. Pt of Dr. Aguilar.
Thank you for consult, will follow along with you
Plan
Plan
Transfusions as ordered.
Patient History
History of Present Illness
67-year-old male with history of MDS, chronic constipation, pancreatitis, OA left hip, obesity. complaining of fatigue along with lightheadedness and dizziness with sensation of feeling he is going to pass out.��Patient has had similar symptoms when
he has had low hemoglobin.� He started Vidaza 03/14. Most recently treated with cycle 5 07/11 - 07/15, [place] 07/18. He has remained transfusion-dependent with not much difference in his counts since started. States that last time he was
transfused, he only got one unit of blood and it was not enough. Came to the ED today complaining of fatigue, lightheadedness, dizziness. Admitted with symptomatic anemia. Denies bleeding.
Past-Medical/Surgical History
PMH:
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
COPD
Basal cell cancer
Osteoarthritis
GERD
Obesity
PSH:
Left hip replacement 01/2023
Cataracts 2018
cholecystectomy 2018
ear canal drilled 1996
SH
Tobacco: Non-smoker
Alcohol: None
Drug: None
Patient Medication
Medication Instructions Recorded Confirmed Last Taken Type
bisacodyl 5 mg tablet,delayed 5 mg PO DAILY PRN constipation 06/16/23 07/25/23 2 Weeks Ago History
release ~07/11/23
azacitidine 100 mg solution for 159 mg SC DIRECTED Cancer 06/28/23 07/25/23 07/15/23 History
injection (Vidaza)
Darbepoetin 500 mcg SC Q3W anemia 07/25/23 07/25/23 07/08/23 History
Active Medications
Generic Name Dose Route Start Last Admin
Trade Name Freq PRN Reason Stop Dose Admin
Acetaminophen 650 mg 07/25/23 16:30
Acetaminophen 325 Mg Tablet PO 08/22/23 16:29
Q4HPRN PRN
mild pain/COLBY/temp> 100.4F
Bisacodyl 5 mg 07/25/23 16:30
Bisacodyl 5 Mg Enteric Coated Tablet PO 08/22/23 16:29
DAILYPRN PRN
constipation
Sodium Chloride 0 flush 07/25/23 17:00
Sodium Chloride 0.9% (Flush) Syringe IV 08/22/23 16:59
PER PROTOCOL MERVIN
Review of Systems
-
History Source: Patient
All Other Systems: Reviewed and Negative
Physical Exam
-
General: Well Developed, Well Nourished and Other (Pale)
HEENT: Moist Mucous Membranes; Negative Jaundice
Cardiology: Normal Sinus Rhythm, S1 and S2
Pulmonary: Clear; Negative Wheezes
GI: Soft and Normal Bowel Sounds
Musculoskeletal: No Clubbing, No Cyanosis and No Edema
Extremities: Pulses Present
Neurology: Non Focal
Hematologic / Lymphatic: No Lymphadenopathy
Psych: Calm and Intact Judgement/Insight
Labs
Lab Results
WBC 1.3 10^3/uL (4.8-10.8) L* 07/25/23 11:35
RBC 1.51 10^6/uL (4.70-6.10) L 07/25/23 11:35
Hgb 4.6 g/dL (13.0-18.0) L* 07/25/23 11:35
Hct 13.5 % (39.0-52.0) L* 07/25/23 11:35
MCV 89.4 fL (80.0-94.0) 07/25/23 11:35
MCH 30.5 pg (27.0-31.0) 07/25/23 11:35
MCHC 34.1 g/dL (33.0-37.0) 07/25/23 11:35
RDW 14.6 % (11.5-14.5) H 07/25/23 11:35
Plt Count 2 10^3/uL (130-400) L* 07/25/23 11:35
MPV Not Reportable 07/25/23 11:35
Creatinine 1.1 mg/dL (0.7-1.3) 07/25/23 11:35
Vital Signs
Vital Signs
Temp Pulse Resp BP Pulse Ox
98.2 F 78 16 112/56 98
07/25/23 20:29 07/25/23 20:29 07/25/23 20:29 07/25/23 20:29 07/25/23 16:38
[2023-07-26] VITALS (14 sets, daily range): BP systolic 99–115; BP diastolic 5–66
[2023-07-26 08:27] LABS: % Basophils 1.4 % (0-2); % Immature Granulocytes 0.7 % (0-0.5); % Lymphocytes 46.4 % (20.5-51.1); % Monocytes 7.9 % (1.7-9.3); % Neutrophils 43.6 % (42.2-75.2); Absolute Lymphocytes 0.7 10^3/uL (1.2-3.4); Absolute Monocytes 0.1 10^3/uL (0.1-0.6); Mean Corp Hgb Conc. 34.9 g/dL (33.0-37.0); Mean Corpuscular Volume 85.9 fL (80.0-94.0); Nucleated Red Blood Cells % 0 % (-); Red Blood Cell Count 2.27 10^6/uL (4.70-6.10); Red Cell Dist. Width 14.8 % (11.5-14.5)
[2023-07-26 08:29] LABS: Hemoglobin 6.8 g/dL (13.0-18.0); White Blood Cell Count 1.4 10^3/uL (4.8-10.8)
[2023-07-26 08:30] LABS: Hematocrit 19.5 % (39.0-52.0); Platelet Count 14 10^3/uL (130-400)
[2023-07-26 08:55] LABS: Blood Urea Nitrogen 23 mg/dl (9-20); Carbon Dioxide 27 mmol/L (22-30); Chloride 106 mmol/L (98-107); Estimated Creatinine Clearance 68 ml/min; Glucose 91 mg/dl (70-99); Sodium 135 mmol/L (135-145); eGFR > 60.00
[2023-07-26 09:49] LABS: Absolute Neutrophils 0.6 10^3/uL (1.4-6.5)
--- NOTE | 2023-07-26 11:39 | W.PN.ONC ---
Addendum entered and electronically signed by Pauly Frederick MD 07/26/23 12:51:
Patient seen, agree w A&P as below
pRBCs infusing currently, would give 1u platelets as well
Okay for d/c
Monitor CBC outpatient at least 1x/week
has f/u with Dr. Aguilar next week to consider further treatment plans
Original Note:
Today's Communication / Plan
-
07/26 Hgb 6.8, Hct 19.5, PLT 14
s/p 2unit PRBCs, 2unit PLTs
1unit ordered PRBC ordered this AM
Transfuse as needed to maintain Hgb >7, PLT >20
07/26 ANC 600, continue neutropenic precautions
Monitor CBC w/ diff
[place] has been notified to arrange follow up. CBC weekly upon dc
Impression
Impression
Pancytopenia
Profound anemia
Thrombocytopenia
MDS (Vidaza 07/08/23)
Weakness/fatigue
Subjective/Objective
Subjective/Objective
Patient states he feels weak and tired but otherwise fine.
Vital Signs:
Vital Signs
Temp Pulse Resp BP Pulse Ox
98.0 F 77 16 115/59 99
07/26/23 10:49 07/26/23 10:49 07/26/23 10:49 07/26/23 10:49 07/26/23 07:45
physical exam:
aaox3, pallor
HRR, lungs dim/clear
no edema, +pulses
Lab Results:
Laboratory Data
WBC 1.4 10^3/uL (4.8-10.8) L* 07/26/23 06:41
Hgb 6.8 g/dL (13.0-18.0) L* D 07/26/23 06:41
Plt Count 14 10^3/uL (130-400) L* D 07/26/23 06:41
eGFR > 60.00 07/26/23 06:41
--- NOTE | 2023-07-26 12:17 | W.PN.HOSP.TC ---
Addendum entered and electronically signed by Hiram Chacko MD 07/27/23 18:07:
[id number]
Original Note:
Today's Communication/Plan
-
transfuse 1u prbc and 1 u platelet
weekly cbc weekly
f/u Dr. Aguilar as scheduled next week
F/u PCP within 1 week
Assessment / Plan
Assessment / Plan
Physical Exam
General: Conversant, No Pain, Fever or Chills
HEENT: NormoCephalic, Anicteric, PERRLA, No Ptosis
Respiratory: Clear; No Wheezes, Rales or Rhonchi
Cardiac: S1/S2 and Regular Rhythm; No Murmur, Rub, Gallop or Peripheral Edema
Breast: Deferred by me
GI: Soft, Non Tender, Non Distended and Normal Bowel Sounds
Rectal: Deferred by Provider
Genito-urinary: Deferred by me
Musculoskeletal: No Clubbing, No Cyanosis and No Edema
Skin: Warm and Dry; No Rash, Jaundice or Ulcers
Neuro: AO x 3, No Motor Deficits, Nonfocal/grossly intact and No Sensory Deficits; No Slurred Speech, Facial Droop or Tremors
Psych: Calm
#Symptomatic anemia /thrombocytopenia due to myelodysplastic syndrome
Hgb 4.6 PLT 2
-Transfused 2 units PRBCs, 1 pack platelets
-transfuse additional 1 unit today;
-[facility] has been notified to arrange follow up. CBC weekly upon dc
Has f/u with Dr. Aguilar next week
#Chronic pancytopenia due to MDS
-Neutropenic without fever or chills
-Follow CBC as stated above
weekly cbc with [facility]
#Chronic constipation
-Bowel regimen as needed
DVT prophylaxis
Low risk due to severe thrombocytopenia
Full code
More than 30 minutes spent in discharge including
Final examination of the patient
Summarizing hospital stay
Instructions for continuing care to all relevant caregivers
Preparation of discharge records, prescriptions, and referral forms
Total time spent (35 in minutes):
Anticipated Discharge: Today
Subjective/Interval History
-
Date of Service: July 26, 2023
Hemoglobin 6.8, transfusing 1 more unit. Feels better, although still weak.
Objective Data
-
Labs:
Laboratory Results
07/26/23
06:41
WBC 1.4 L*
Hgb 6.8 L* D
Hct 19.5 L*
Plt Count 14 L* D
Sodium 135
Potassium 4.0
Chloride 106
Carbon Dioxide 27
BUN 23 H
Creatinine 1.1
Glucose 91
Calcium 8.0 L
Vital Signs:
Vital Signs
Temp Pulse Resp BP Pulse Ox
98.0 F 77 16 115/59 99
07/26/23 10:49 07/26/23 10:49 07/26/23 10:49 07/26/23 10:49 07/26/23 07:45
I&O
07/25/23 07/26/23 07/27/23
06:59 06:59 06:59
Intake Total 2369 / 2369 0 / 0
Balance 2369 / 236 0 / 0
Review of Systems
-
History Source: Patient
All other systems: Not reviewed unless documented
Data Reviewed
-
Labs: Labs Reviewed by me
--- NOTE | 2023-07-26 12:26 | W.DS.TRANS ---
DC Summary - [place] [facility]
-
Discharge Instructions:
Discharge Diagnosis/Procedures #Symptomatic anemia /thrombocytopenia due to
myelodysplastic syndrome
Diet As tolerated
Additional Diets neutropenic precautions
Activity As tolerated
Blood Work [place] has been notified to arrange follow up.
CBC weekly upon dc
Instructions:
Stand-Alone Forms:
Changes to Home Medications: No
Discharge Medications:
DC Medications w/original date entered in [facility]
bisacodyl 5 mg tablet,delayed release 5 mg PO DAILY PRN constipation 06/16/23
azacitidine 100 mg solution for injection (Vidaza) 159 mg SC DIRECTED Cancer 06/28/23
Darbepoetin 500 mcg SC Q3W anemia 07/25/23
Home Medication Changes
no
Pending Results: No
--- NOTE | 2023-07-26 12:39 | CM ---
casino cashier manager reviewed patient's chart and met with patient and patient lives with roommates in a multilevel home, patient is independent with adl's and ambulation, patient has a walker in home that he rarely uses, patient drives. Patient has a
prescription plan and uses [facility].
PCP: Dr. Gay
Plan; Home today no needs.
[2023-07-26 20:24] LABS: Hemoglobin 7.8 g/dL (13.0-18.0); Mean Corp Hgb Conc. 35.5 g/dL (33.0-37.0); Mean Corpuscular Hgb 30.1 pg (27.0-31.0); Mean Corpuscular Volume 84.9 fL (80.0-94.0); Red Blood Cell Count 2.59 10^6/uL (4.70-6.10); Red Cell Dist. Width 13.9 % (11.5-14.5)
[2023-07-26 20:27] LABS: Platelet Count 24 10^3/uL (130-400); White Blood Cell Count 1.7 10^3/uL (4.8-10.8)
--- NOTE | 2023-07-27 00:23 | PTCARENOTE ---
Pt given discharge instruction @ 2044. Says he has appropriate appointments made for follow ups. IV taken out and Pt was walked down for discharge.
== END 2023-07-26 21:46 | disposition home or self-care (01) ==
LOC: 4 WEST ACU 13:50
PROVIDERS: Clinical Nurse Specialist Family Health; Physician Assistant; ADMITTING PHYSICIAN Internal Medicine; CONSULT PHYSICIAN Internal Medicine Hematology & Oncology; EMERGENCY PHYSICIAN Emergency Medicine; FAMILY PHYSICIAN Family Medicine
DX: D61.818 Other pancytopenia (principal); D46.9 Myelodysplastic syndrome, unspecified; K59.09 Other constipation; E66.9 Obesity, unspecified; J44.9 Chronic obstructive pulmonary disease, unspecified; K21.9 Gastro-esophageal reflux disease without esophagitis; Z68.31 Body mass index [BMI] 31.0-31.9, adult; Z79.899 Other long term (current) drug therapy
CPT/HCPCS: 36430; 80048; 80053; 85025; 85027; 86850; 86900; 86901; 86920; 93005; 99285; G0378; P9016; P9073

== ENCOUNTER 2023-08-09 10:46 | Outpatient (RCR) | payer MEDICARE, OTHER, SELFPAY ==
[2023-08-09 12:22] VITALS: BP 125/55
[2023-08-09 12:39] VITALS: BP 108/51
[2023-08-09 14:11] VITALS: BP 103/48
[2023-08-19 11:08] LABS: % Basophils 0.9 % (0-2); % Immature Granulocytes 4.4 % (0-0.5); % Lymphocytes 36.3 % (20.5-51.1); % Monocytes 6.1 % (1.7-9.3); % Neutrophils 52.3 % (42.2-75.2); Absolute Immature Granulocytes 0.2 10^3/uL (0-0.05); Absolute Lymphocytes 1.2 10^3/uL (1.2-3.4); Absolute Monocytes 0.2 10^3/uL (0.1-0.6); Absolute Neutrophils 1.8 10^3/uL (1.4-6.5); Hematocrit 16.8 % (39.0-52.0); Hemoglobin 5.6 g/dL (13.0-18.0); Mean Corp Hgb Conc. 33.3 g/dL (33.0-37.0); Mean Corpuscular Hgb 30.8 pg (27.0-31.0); Mean Corpuscular Volume 92.3 fL (80.0-94.0); Nucleated Red Blood Cells % 0 % (-); Red Blood Cell Count 1.82 10^6/uL (4.70-6.10); Red Cell Dist. Width 16.3 % (11.5-14.5); White Blood Cell Count 3.4 10^3/uL (4.8-10.8)
[2023-08-19 11:24] LABS: Platelet Count 3 10^3/uL (130-400)
== END 2023-08-28 23:59 | disposition home or self-care (01) ==
LOC: OID 10:46
PROVIDERS: ATTENDING PHYSICIAN Internal Medicine Hematology & Oncology; FAMILY PHYSICIAN Family Medicine
DX: D64.9 Anemia, unspecified (principal); D61.818 Other pancytopenia
CPT/HCPCS: 36415; 36430; 85025; 86850; 86900; 86901; 86920; P9016

== ENCOUNTER 2023-08-19 12:29 | Emergency (ER) | payer MEDICARE, OTHER, SELFPAY ==
[2023-08-19] VITALS (18 sets, daily range): BP systolic 108–131; BP diastolic 46–62; BMI 31.4
--- NOTE | 2023-08-19 13:37 | ED.GENMED ---
History of Present Illness
<Silvino Dodd PA-C - Last Filed: 08/20/23 07:06>
General
Chief Complaint: Abnormal Lab Value
Time Seen by Provider: 08/19/23 12:58
Travel History
Have you had any contact with someone who has COVID-19?: No
Do you have any symptoms of coronavirus? Fever > 100 degrees, chills, cough, shortness of breath, sore throat, loss of taste or smell, muscle aches, or headache?: No
History of Present Illness
History of Present Illness:
67-year-old male with history of myelodysplasia presents the emergency department upon referral from the [facility] center due to anemia and thrombocytopenia. He was scheduled to receive 1 unit of packed red blood cells today however due to the
degree of anemia and thrombocytopenia he was referred to the emergency department. He reports general fatigue and malaise. Denies any gingival bleeding, hematuria, or melanotic stools. No chest pain or shortness of breath.
Past History
<Silvino Dodd PA-C - Last Filed: 08/20/23 07:06>
Past History
ED Past Medical History: Asthma and Other (Myelodysplastic syndrome)
ED Past Surgical History: Cholecystectomy
Social History
Tobacco: Non-smoker
Alcohol: None
Drug: None
Personal:
Living: with family
Review of Systems
<Silvino Dodd PA-C - Last Filed: 08/20/23 07:06>
Review of Systems
Allergies reviewed?: Yes
All Other Systems: ROS reviewed and negative except as documented in HPI and ROS
Phy Exam
<Silvino Dodd PA-C - Last Filed: 08/20/23 07:06>
Physical Exam
Physical Exam:
GEN: Generally pale, no acute distress
HEENT: Oral mucosa moist, no scleral icterus
Cardiac: Regular rate
Lung: No respiratory distress, no tachypnea
MSK: No gross deformity or injuries
Skin: Good color, no pallor or jaundice, no rashes
Neuro: AO x3, moves all extremities freely
Psych: Calm, cooperative
Course
<Silvino Dodd PA-C - Last Filed: 08/20/23 07:06>
Orders/Labs/Results
Orders:
Orders
08/19/23 13:06
Type+Screen Urgent
Basic Metabolic Panel Urgent
Complete Blood Count/With Diff Urgent
08/19/23 13:36
Blood Bank Products [* Blood Bank Products] Urgent
Blood Bank Products: *Packed RBC Leuko(PRBC's)
Quantity: 2
Transfuse Today: Yes
Reason: Anemia
Blood Bank Products [* Blood Bank Products] Urgent
Blood Bank Products: *Plt Single Donor Leuko
Quantity: 1
Transfuse Today: Yes
Reason: Thrombocytopenia
Abnormal Lab Results
08/19/23
13:06
WBC 2.8 L 10^3/uL
(4.8-10.8)
RBC 1.71 L 10^6/uL
(4.70-6.10)
Hgb 5.3 L* g/dL
(13.0-18.0)
Hct 15.8 L* %
(39.0-52.0)
RDW 16.4 H %
(11.5-14.5)
Plt Count 2 L* D 10^3/uL
(130-400)
BUN 25 H mg/dl
(9-20)
Glucose 102 H mg/dl
(70-99)
Crossmatch IS Only See Detail
08/19/23 13:06
08/19/23 13:06
Vital Signs
Initial and Last Documented VS:
Initial Vital Signs
Temp Pulse Resp BP Pulse Ox
98.5 F 78 16 114/56 98
08/19/23 12:32 08/19/23 12:32 08/19/23 12:32 08/19/23 12:32 08/19/23 12:32
Last Documented Vital Signs
Temp Pulse Resp BP Pulse Ox
98.5 F 79 18 119/53 99
08/19/23 21:04 08/19/23 21:04 08/19/23 21:04 08/19/23 21:04 08/19/23 13:15
<Yamile Lomeli MD - Last Filed: 08/19/23 14:51>
Orders/Labs/Results
Orders:
Orders
08/19/23 13:06
Type+Screen Urgent
Basic Metabolic Panel Urgent
Complete Blood Count/With Diff Urgent
08/19/23 13:36
Blood Bank Products [* Blood Bank Products] Urgent
Blood Bank Products: *Packed RBC Leuko(PRBC's)
Quantity: 2
Transfuse Today: Yes
Reason: Anemia
Blood Bank Products [* Blood Bank Products] Urgent
Blood Bank Products: *Plt Single Donor Leuko
Quantity: 1
Transfuse Today: Yes
Reason: Thrombocytopenia
Abnormal Lab Results
08/19/23
13:06
WBC 2.8 L 10^3/uL
(4.8-10.8)
RBC 1.71 L 10^6/uL
(4.70-6.10)
Hgb 5.3 L* g/dL
(13.0-18.0)
Hct 15.8 L* %
(39.0-52.0)
RDW 16.4 H %
(11.5-14.5)
Plt Count 2 L* D 10^3/uL
(130-400)
BUN 25 H mg/dl
(9-20)
Glucose 102 H mg/dl
(70-99)
Crossmatch IS Only See Detail
08/19/23 13:06
08/19/23 13:06
Vital Signs
Initial and Last Documented VS:
Initial Vital Signs
Temp Pulse Resp BP Pulse Ox
98.5 F 78 16 114/56 98
08/19/23 12:32 08/19/23 12:32 08/19/23 12:32 08/19/23 12:32 08/19/23 12:32
Last Documented Vital Signs
Temp Pulse Resp BP Pulse Ox
98.5 F 79 18 119/53 99
08/19/23 21:04 08/19/23 21:04 08/19/23 21:04 08/19/23 21:04 08/19/23 13:15
<Jorgito Malik PA-C - Last Filed: 08/19/23 20:58>
Orders/Labs/Results
Orders:
Orders
08/19/23 13:06
Type+Screen Urgent
Basic Metabolic Panel Urgent
Complete Blood Count/With Diff Urgent
08/19/23 13:36
Blood Bank Products [* Blood Bank Products] Urgent
Blood Bank Products: *Packed RBC Leuko(PRBC's)
Quantity: 2
Transfuse Today: Yes
Reason: Anemia
Blood Bank Products [* Blood Bank Products] Urgent
Blood Bank Products: *Plt Single Donor Leuko
Quantity: 1
Transfuse Today: Yes
Reason: Thrombocytopenia
Abnormal Lab Results
08/19/23
13:06
WBC 2.8 L 10^3/uL
(4.8-10.8)
RBC 1.71 L 10^6/uL
(4.70-6.10)
Hgb 5.3 L* g/dL
(13.0-18.0)
Hct 15.8 L* %
(39.0-52.0)
RDW 16.4 H %
(11.5-14.5)
Plt Count 2 L* D 10^3/uL
(130-400)
BUN 25 H mg/dl
(9-20)
Glucose 102 H mg/dl
(70-99)
Crossmatch IS Only See Detail
08/19/23 13:06
08/19/23 13:06
Vital Signs
Initial and Last Documented VS:
Initial Vital Signs
Temp Pulse Resp BP Pulse Ox
98.5 F 78 16 114/56 98
08/19/23 12:32 08/19/23 12:32 08/19/23 12:32 08/19/23 12:32 08/19/23 12:32
Last Documented Vital Signs
Temp Pulse Resp BP Pulse Ox
98.5 F 79 18 119/53 99
08/19/23 21:04 08/19/23 21:04 08/19/23 21:04 08/19/23 21:04 08/19/23 13:15
<Silvino Dodd PA-C - Last Filed: 08/20/23 07:06>
MDM/Problems Addressed
MDM/Problems Addressed:
Plan will be for transfusions of 2 units of packed blood cells and platelets. Reviewed the labs with hematology and they are in agreement with this plan. Will sign out to Tom Malik PA-C pending transfusions
<Jorgito Malik PA-C - Last Filed: 08/19/23 20:58>
*Critical Care Note
Total Time (30-74mins, 75-104mins- exclusive of procedures): Not Applicable
<Jorgito Malik PA-C - Last Filed: 08/19/23 20:58>
Patient Management
Escalation/DeEscalation of care consider admission/obs:
Patient received in signout pending completion of infusions. Patient completed the 2 units of blood and platelets without complications. Stable for continued outpatient management. Aware of return precautions.
ED Attending Note
<Silvino Dodd PA-C - Last Filed: 08/20/23 07:06>
-
Portions of this chart may have been created with voice recognition software.� Occasional wrong word or��sound alike� substitutions may have occurred due to the inherent limitations of voice recognition software.
<Yamile Lomeli MD - Last Filed: 08/19/23 14:51>
ED Attending Note
Patient seen and examined by attending physician: Yes
I performed the substantive portion of visit, reviewed & personally made and approve the management plan that is documented in note by myself or LÓPEZ.: Yes
ED Attending Note:
Pt sent to ED for tx (prbc and platelets) as outpt center unable to accomodate him. Pt says he feels tired, but he always feels tired. No sob, cp, abd pain, etc. Labs noted here, tx ordered. Pt stable. PA to d/w heme re:admit vs d/c s/p tx.
Discharge Plan
Departure
Patient Disposition: Home (Routine Discharge)
Date of Disposition: 08/19/23
Time of Disposition: 20:03
Patient with high blood pressure during this ER visit?: No
Discharge Problem:
Symptomatic anemia, Thrombocytopenia
Prescriptions:
No Action
azacitidine [Vidaza] 100 mg Recon Soln
159 mg SC DIRECTED
Patient Comments:
08/19/2023, next dose: 09/05/2023; Contacted OID Department to confirm dose and frequency.
Rx Instructions:
08/19/2023, takes daily for 5 days a month and repeats every 28 days.
Darbepoetin
500 mcg SC Q3W
Patient Comments:
08/19/2023, next dose: 08/19/2023 (today); Contacted OID Department to confirm dose and frequency.
ondansetron HCl [Zofran] 8 mg Tablet
8 mg PO Q8H PRN (Reason: nausea/vomiting)
prochlorperazine maleate [Compazine] 10 mg Tablet
10 mg PO Q6H PRN (Reason: nausea)
Referrals:
Meliton Gay MD [Family Provider] -
Activity Restrictions/Additional Instructions:
You will need a repeat blood count checked on Tuesday
Interventions
Interventions:
*Risk Screen - Suicide Last Done: 08/19/23 12:46
*General Assessment Last Done: 08/19/23 12:32
*Neglect/Abuse Screening Last Done: 08/19/23 12:46
*ED COVID-19 Vaccine History Last Done: 08/19/23 12:32
*Nursing Disposition Last Done: 08/19/23 21:18
Discharge Date and Time
Discharge Date/Time: 08/19/23 21:18
[2023-08-19 13:57] LABS: Mean Corp Hgb Conc. 33.5 g/dL (33.0-37.0); Mean Corpuscular Volume 92.4 fL (80.0-94.0); Red Blood Cell Count 1.71 10^6/uL (4.70-6.10); Red Cell Dist. Width 16.4 % (11.5-14.5); White Blood Cell Count 2.8 10^3/uL (4.8-10.8)
[2023-08-19 14:02] LABS: Hematocrit 15.8 % (39.0-52.0); Hemoglobin 5.3 g/dL (13.0-18.0)
[2023-08-19 14:03] LABS: Platelet Count 2 10^3/uL (130-400)
[2023-08-19 14:14] LABS: Blood Urea Nitrogen 25 mg/dl (9-20); Calcium 8.9 mg/dl (8.4-10.2); Carbon Dioxide 27 mmol/L (22-30); Chloride 104 mmol/L (98-107); Estimated Creatinine Clearance 62 ml/min; Glucose 102 mg/dl (70-99); Potassium 4.3 mmol/L (3.5-5.1); Sodium 136 mmol/L (135-145); eGFR > 60.00
== END 2023-08-19 21:18 | disposition home or self-care (01) ==
LOC: EMR 12:29
PROVIDERS: Physician Assistant; EMERGENCY PHYSICIAN Emergency Medicine; FAMILY PHYSICIAN Family Medicine; OTHER PHYSICIAN Internal Medicine Hematology & Oncology
DX: D64.9 Anemia, unspecified (principal); D69.6 Thrombocytopenia, unspecified; D46.9 Myelodysplastic syndrome, unspecified; J45.909 Unspecified asthma, uncomplicated
CPT/HCPCS: 99284; 36430; 80048; 85025; 86850; 86900; 86901; 86920; P9016; P9073

== ENCOUNTER → 2023-08-29 09:20 | Outpatient (REF) | payer MEDICARE, OTHER, SELFPAY ==
[2023-08-29 09:43] LABS: % Lymphocytes 55.6 % (20.5-51.1); % Monocytes 1.5 % (1.7-9.3); % Neutrophils 39.9 % (42.2-75.2); Absolute Lymphocytes 0.8 10^3/uL (1.2-3.4); Absolute Neutrophils 0.5 10^3/uL (1.4-6.5); Mean Corpuscular Hgb 29.7 pg (27.0-31.0); Mean Corpuscular Volume 92.8 fL (80.0-94.0); Mean Platelet Volume 12.5 fL (7.4-10.4); Nucleated Red Blood Cells % 1.5 % (-); Red Blood Cell Count 2.22 10^6/uL (4.70-6.10); Red Cell Dist. Width 15.9 % (11.5-14.5)
[2023-08-29 09:47] LABS: Hematocrit 20.6 % (39.0-52.0); Hemoglobin 6.6 g/dL (13.0-18.0); Platelet Count 8 10^3/uL (130-400); White Blood Cell Count 1.4 10^3/uL (4.8-10.8)
[2023-08-29 09:50] LABS: INR 1.05; PT 13.5 Sec (11.4-14.6)
[2023-08-29 10:02] VITALS: BP 107/57; BP_SYST 76
[2023-08-29] MEDS: ATIVAN 0.5 MG IV (10:28)
[2023-08-29] MEDS: NSS (PRESERVATIVE FREE) 0.25 ML IV (10:30)
[2023-08-29 11:30] VITALS: BP 122/57
== END ==
LOC: RADI 09:20
PROVIDERS: ATTENDING PHYSICIAN Internal Medicine Hematology & Oncology; FAMILY PHYSICIAN Internal Medicine Cardiovascular Disease; REFERRING PHYSICIAN Physician Assistant
DX: D46.9 Myelodysplastic syndrome, unspecified (principal); D68.8 Other specified coagulation defects
CPT/HCPCS: 88305; 88311; 88312; 36415; 38221; 77012; 85025; 85610; 88313; 88341; 88342

== ENCOUNTER 2023-09-05 12:00 | Outpatient (RCR) | payer MEDICARE, OTHER, SELFPAY ==
[2023-09-01 11:41] LABS: % Immature Granulocytes 1.4 % (0-0.5); % Lymphocytes 50.7 % (20.5-51.1); % Monocytes 1.4 % (1.7-9.3); % Neutrophils 46.5 % (42.2-75.2); Absolute Lymphocytes 0.7 10^3/uL (1.2-3.4); Mean Corp Hgb Conc. 32.5 g/dL (33.0-37.0); Mean Corpuscular Hgb 30.6 pg (27.0-31.0); Mean Corpuscular Volume 94.3 fL (80.0-94.0); Mean Platelet Volume 11.3 fL (7.4-10.4); Red Blood Cell Count 2.09 10^6/uL (4.70-6.10); Red Cell Dist. Width 16.7 % (11.5-14.5)
[2023-09-01 11:42] LABS: Absolute Neutrophils 0.7 10^3/uL (1.4-6.5); Hematocrit 19.7 % (39.0-52.0); Hemoglobin 6.4 g/dL (13.0-18.0); Platelet Count 16 10^3/uL (130-400); White Blood Cell Count 1.4 10^3/uL (4.8-10.8)
[2023-09-02] VITALS (9 sets, daily range): BP systolic 92–128; BP diastolic 47–60
[2023-09-05 11:55] LABS: ALT (SGPT) 12 U/L (0-50); AST (SGOT) 14 U/L (17-59); Albumin 3.6 g/dl (3.5-5.0); Alkaline Phosphatase 64 U/L (38-126); Blood Urea Nitrogen 23 mg/dl (9-20); Calcium 8.9 mg/dl (8.4-10.2); Carbon Dioxide 26 mmol/L (22-30); Chloride 103 mmol/L (98-107); Glucose 109 mg/dl (70-99); Potassium 4.2 mmol/L (3.5-5.1); Sodium 137 mmol/L (135-145); Total Bilirubin 0.8 mg/dl (0.2-1.3); Total Protein 6.1 g/dl (6.3-8.2); eGFR > 60.00
[2023-09-05 11:57] LABS: % Basophils 0.7 % (0-2); % Immature Granulocytes 0.7 % (0-0.5); % Lymphocytes 47.7 % (20.5-51.1); % Monocytes 5.4 % (1.7-9.3); % Neutrophils 45.5 % (42.2-75.2); Absolute Lymphocytes 0.7 10^3/uL (1.2-3.4); Absolute Monocytes 0.1 10^3/uL (0.1-0.6); Absolute Neutrophils 0.7 10^3/uL (1.4-6.5); Hematocrit 25.3 % (39.0-52.0); Hemoglobin 8.4 g/dL (13.0-18.0); Mean Corp Hgb Conc. 33.2 g/dL (33.0-37.0); Mean Corpuscular Hgb 30.4 pg (27.0-31.0); Mean Corpuscular Volume 91.7 fL (80.0-94.0); Mean Platelet Volume 12.9 fL (7.4-10.4); Nucleated Red Blood Cells % 0 % (-); Platelet Count 32 10^3/uL (130-400); Red Blood Cell Count 2.76 10^6/uL (4.70-6.10); White Blood Cell Count 1.5 10^3/uL (4.8-10.8)
[2023-09-09 09:02] LABS: Iron 202 ug/dl (49-181)
[2023-09-09 09:11] LABS: Percent Saturation 88 % (20-50); Total Iron Binding Capacity 228 ug/dl (261-462)
== END 2023-09-27 23:59 | disposition home or self-care (01) ==
LOC: OID 12:00
PROVIDERS: ATTENDING PHYSICIAN Internal Medicine Hematology & Oncology; FAMILY PHYSICIAN Family Medicine
DX: D64.9 Anemia, unspecified (principal); D61.818 Other pancytopenia
CPT/HCPCS: 36430; 80053; 82728; 83540; 83550; 85025; 86850; 86900; 86901; 86920; P9016; P9073

== ENCOUNTER 2023-10-04 10:00 | Outpatient (RCR) | payer MEDICARE, OTHER, SELFPAY ==
[2023-09-30 11:18] LABS: % Basophils 0.5 % (0-2); % Immature Granulocytes 0.5 % (0-0.5); % Lymphocytes 39.8 % (20.5-51.1); % Neutrophils 50.2 % (42.2-75.2); Absolute Lymphocytes 0.8 10^3/uL (1.2-3.4); Absolute Monocytes 0.2 10^3/uL (0.1-0.6); Hematocrit 21.6 % (39.0-52.0); Mean Corp Hgb Conc. 32.4 g/dL (33.0-37.0); Mean Corpuscular Hgb 30.4 pg (27.0-31.0); Mean Corpuscular Volume 93.9 fL (80.0-94.0); Mean Platelet Volume 10.8 fL (7.4-10.4); Platelet Count 77 10^3/uL (130-400); Red Cell Dist. Width 21.1 % (11.5-14.5)
[2023-10-04 10:30] VITALS: BP 84/62
[2023-10-04 10:50] VITALS: BP 109/57
[2023-10-04 12:26] VITALS: BP 111/89
[2023-10-13 10:31] LABS: % Basophils 0.5 % (0-2); % Eosinophils 0.5 % (0-6); % Immature Granulocytes 0.5 % (0-0.5); % Lymphocytes 39.6 % (20.5-51.1); % Monocytes 7.1 % (1.7-9.3); % Neutrophils 51.8 % (42.2-75.2); Absolute Lymphocytes 0.8 10^3/uL (1.2-3.4); Absolute Monocytes 0.1 10^3/uL (0.1-0.6); Hematocrit 26.9 % (39.0-52.0); Hemoglobin 8.6 g/dL (13.0-18.0); Mean Corpuscular Hgb 30.4 pg (27.0-31.0); Mean Corpuscular Volume 95.1 fL (80.0-94.0); Mean Platelet Volume 11.1 fL (7.4-10.4); Platelet Count 85 10^3/uL (130-400); Red Blood Cell Count 2.83 10^6/uL (4.70-6.10); Red Cell Dist. Width 20.6 % (11.5-14.5)
== END 2023-10-28 23:59 | disposition home or self-care (01) ==
LOC: OID 10:00
PROVIDERS: ATTENDING PHYSICIAN Internal Medicine Hematology & Oncology; FAMILY PHYSICIAN Family Medicine
DX: D64.9 Anemia, unspecified (principal); D61.818 Other pancytopenia
CPT/HCPCS: 36430; 85025; 86850; 86900; 86901; 86920; P9016

== ENCOUNTER → 2023-10-25 14:31 | Outpatient (REF) | payer MEDICARE, OTHER, SELFPAY ==
[2023-10-25 15:47] LABS: ALT (SGPT) 10 U/L (0-50); AST (SGOT) 16 U/L (17-59); Albumin 3.9 g/dl (3.5-5.0); Alkaline Phosphatase 70 U/L (38-126); Blood Urea Nitrogen 26 mg/dl (9-20); Calcium 9.6 mg/dl (8.4-10.2); Carbon Dioxide 23 mmol/L (22-30); Chloride 105 mmol/L (98-107); Glucose 88 mg/dl (70-99); Potassium 4.4 mmol/L (3.5-5.1); Sodium 138 mmol/L (135-145); Total Bilirubin 0.5 mg/dl (0.2-1.3); Total Protein 6.5 g/dl (6.3-8.2); eGFR 50.08
[2023-10-25 15:49] LABS: % Basophils 0.3 % (0-2); % Immature Granulocytes 0.9 % (0-0.5); % Lymphocytes 30.8 % (20.5-51.1); % Monocytes 10.8 % (1.7-9.3); % Neutrophils 57.2 % (42.2-75.2); Absolute Monocytes 0.4 10^3/uL (0.1-0.6); Absolute Neutrophils 1.9 10^3/uL (1.4-6.5); Hematocrit 27.8 % (39.0-52.0); Hemoglobin 8.9 g/dL (13.0-18.0); Mean Corpuscular Hgb 29.8 pg (27.0-31.0); Nucleated Red Blood Cells % 1.2 % (-); Platelet Count 62 10^3/uL (130-400); Red Blood Cell Count 2.99 10^6/uL (4.70-6.10); Red Cell Dist. Width 21.3 % (11.5-14.5); White Blood Cell Count 3.3 10^3/uL (4.8-10.8)
== END ==
LOC: REG 14:31
PROVIDERS: ATTENDING PHYSICIAN Internal Medicine Hematology & Oncology; FAMILY PHYSICIAN Internal Medicine Cardiovascular Disease
DX: D64.9 Anemia, unspecified (principal); D46.A Refractory cytopenia with multilineage dysplasia
CPT/HCPCS: 36415; 80053; 85025

== ENCOUNTER 2023-11-03 11:58 | Outpatient (RCR) | payer MEDICARE, OTHER, SELFPAY ==
[2023-11-03 10:10] LABS: Hematocrit 31.2 % (39.0-52.0); Hemoglobin 9.8 g/dL (13.0-18.0); Mean Corp Hgb Conc. 31.4 g/dL (33.0-37.0); Mean Corpuscular Hgb 29.7 pg (27.0-31.0); Mean Corpuscular Volume 94.5 fL (80.0-94.0); Red Cell Dist. Width 20.7 % (11.5-14.5); White Blood Cell Count 3.3 10^3/uL (4.8-10.8)
[2023-11-03 13:31] LABS: Platelet Count 90 10^3/uL (130-400)
[2023-11-03 13:32] LABS: % Basophils 0.3 % (0-2); % Immature Granulocytes 1.4 % (0-0.5); % Lymphocytes 52.8 % (20.5-51.1); % Monocytes 8.4 % (1.7-9.3); % Neutrophils 37.1 % (42.2-75.2); Absolute Lymphocytes 1.8 10^3/uL (1.2-3.4); Absolute Monocytes 0.3 10^3/uL (0.1-0.6); Absolute Neutrophils 1.3 10^3/uL (1.4-6.5)
[2023-11-03 13:33] LABS: Absolute Immature Granulocytes 0.1 10^3/uL (0-0.05); Nucleated Red Blood Cells % 3.5 % (-)
[2023-11-24 13:51] LABS: % Basophils 0.6 % (0-2); % Immature Granulocytes 0.8 % (0-0.5); % Lymphocytes 22.2 % (20.5-51.1); % Monocytes 8.3 % (1.7-9.3); % Neutrophils 68.1 % (42.2-75.2); Absolute Lymphocytes 0.8 10^3/uL (1.2-3.4); Absolute Monocytes 0.3 10^3/uL (0.1-0.6); Absolute Neutrophils 2.5 10^3/uL (1.4-6.5); Hematocrit 27.6 % (39.0-52.0); Hemoglobin 8.6 g/dL (13.0-18.0); Mean Corp Hgb Conc. 31.2 g/dL (33.0-37.0); Mean Corpuscular Hgb 29.6 pg (27.0-31.0); Mean Corpuscular Volume 94.8 fL (80.0-94.0); Platelet Count 84 10^3/uL (130-400); Red Blood Cell Count 2.91 10^6/uL (4.70-6.10); Red Cell Dist. Width 21.6 % (11.5-14.5); White Blood Cell Count 3.6 10^3/uL (4.8-10.8)
== END 2023-11-27 23:59 | disposition home or self-care (01) ==
LOC: OID 11:58
PROVIDERS: ATTENDING PHYSICIAN Internal Medicine Hematology & Oncology; FAMILY PHYSICIAN Family Medicine
DX: D64.9 Anemia, unspecified (principal); D46.9 Myelodysplastic syndrome, unspecified (principal); D61.818 Other pancytopenia
CPT/HCPCS: 85025

== ENCOUNTER 2023-12-15 10:03 | Outpatient (RCR) | payer MEDICARE, OTHER, SELFPAY ==
[2023-12-15 11:00] LABS: White Blood Cell Count 3.2 10^3/uL (4.8-10.8)
[2023-12-15 11:01] LABS: % Basophils 0.3 % (0-2); % Eosinophils 0.3 % (0-6); % Immature Granulocytes 0.6 % (0-0.5); % Lymphocytes 45.2 % (20.5-51.1); % Monocytes 6.2 % (1.7-9.3); % Neutrophils 47.4 % (42.2-75.2); Absolute Lymphocytes 1.5 10^3/uL (1.2-3.4); Absolute Monocytes 0.2 10^3/uL (0.1-0.6); Absolute Neutrophils 1.5 10^3/uL (1.4-6.5); Hematocrit 31.8 % (39.0-52.0); Hemoglobin 9.7 g/dL (13.0-18.0); Mean Corp Hgb Conc. 30.5 g/dL (33.0-37.0); Mean Corpuscular Hgb 28.6 pg (27.0-31.0); Mean Corpuscular Volume 93.8 fL (80.0-94.0); Nucleated Red Blood Cells % 0.6 % (-); Platelet Count 70 10^3/uL (130-400); Red Blood Cell Count 3.39 10^6/uL (4.70-6.10); Red Cell Dist. Width 21.7 % (11.5-14.5)
== END 2023-12-15 23:59 | disposition home or self-care (01) ==
LOC: OID 10:03
PROVIDERS: ATTENDING PHYSICIAN Internal Medicine Hematology & Oncology; FAMILY PHYSICIAN Family Medicine
DX: D46.9 Myelodysplastic syndrome, unspecified (principal); D64.9 Anemia, unspecified; D61.818 Other pancytopenia
CPT/HCPCS: 85025

== ENCOUNTER → 2024-01-05 11:26 | Outpatient (REF) | payer MEDICARE, OTHER, SELFPAY ==
[2024-01-05 10:33] LABS: % Basophils 0.8 % (0-2); % Immature Granulocytes 0.4 % (0-0.5); % Lymphocytes 45.4 % (20.5-51.1); % Monocytes 4.4 % (1.7-9.3); Absolute Lymphocytes 1.1 10^3/uL (1.2-3.4); Absolute Monocytes 0.1 10^3/uL (0.1-0.6); Absolute Neutrophils 1.2 10^3/uL (1.4-6.5); Hematocrit 32.2 % (39.0-52.0); Hemoglobin 9.9 g/dL (13.0-18.0); Mean Corp Hgb Conc. 30.7 g/dL (33.0-37.0); Mean Corpuscular Hgb 28.9 pg (27.0-31.0); Mean Corpuscular Volume 93.9 fL (80.0-94.0); Platelet Count 65 10^3/uL (130-400); Red Blood Cell Count 3.43 10^6/uL (4.70-6.10); Red Cell Dist. Width 21.9 % (11.5-14.5); White Blood Cell Count 2.5 10^3/uL (4.8-10.8)
== END ==
LOC: OIDL 11:26
PROVIDERS: ATTENDING PHYSICIAN Internal Medicine Hematology & Oncology
DX: D64.9 Anemia, unspecified (principal)
CPT/HCPCS: 85025

== ENCOUNTER → 2024-01-26 09:59 | Outpatient (REF) | payer MEDICARE, OTHER, SELFPAY ==
[2024-01-26 11:04] LABS: % Basophils 0.4 % (0-2); % Immature Granulocytes 0.7 % (0-0.5); % Lymphocytes 54.3 % (20.5-51.1); % Monocytes 4.6 % (1.7-9.3); Absolute Lymphocytes 1.5 10^3/uL (1.2-3.4); Absolute Monocytes 0.1 10^3/uL (0.1-0.6); Absolute Neutrophils 1.1 10^3/uL (1.4-6.5); Hematocrit 29.1 % (39.0-52.0); Hemoglobin 9.1 g/dL (13.0-18.0); Mean Corp Hgb Conc. 31.3 g/dL (33.0-37.0); Mean Corpuscular Hgb 28.1 pg (27.0-31.0); Mean Corpuscular Volume 89.8 fL (80.0-94.0); Nucleated Red Blood Cells % 1.1 % (-); Platelet Count 62 10^3/uL (130-400); Red Blood Cell Count 3.24 10^6/uL (4.70-6.10); Red Cell Dist. Width 21.4 % (11.5-14.5); White Blood Cell Count 2.8 10^3/uL (4.8-10.8)
== END ==
LOC: OIDL 09:59
PROVIDERS: ATTENDING PHYSICIAN Internal Medicine Hematology & Oncology
DX: D64.9 Anemia, unspecified (principal); D46.A Refractory cytopenia with multilineage dysplasia
CPT/HCPCS: 85025

== ENCOUNTER → 2024-02-16 09:54 | Outpatient (REF) | payer MEDICARE, OTHER, SELFPAY ==
[2024-02-16 09:52] LABS: % Basophils 0.4 % (0-2); % Immature Granulocytes 0.4 % (0-0.5); % Lymphocytes 62.1 % (20.5-51.1); % Neutrophils 33.1 % (42.2-75.2); Absolute Lymphocytes 1.7 10^3/uL (1.2-3.4); Absolute Monocytes 0.1 10^3/uL (0.1-0.6); Absolute Neutrophils 0.9 10^3/uL (1.4-6.5); Hematocrit 30.8 % (39.0-52.0); Hemoglobin 9.4 g/dL (13.0-18.0); Mean Corp Hgb Conc. 30.5 g/dL (33.0-37.0); Mean Corpuscular Hgb 28.6 pg (27.0-31.0); Mean Corpuscular Volume 93.6 fL (80.0-94.0); Platelet Count 66 10^3/uL (130-400); Red Blood Cell Count 3.29 10^6/uL (4.70-6.10); Red Cell Dist. Width 21.7 % (11.5-14.5); White Blood Cell Count 2.7 10^3/uL (4.8-10.8)
== END ==
LOC: OIDL 09:54
PROVIDERS: ATTENDING PHYSICIAN Internal Medicine Hematology & Oncology
DX: D64.9 Anemia, unspecified (principal); D46.A Refractory cytopenia with multilineage dysplasia
CPT/HCPCS: 85025

== ENCOUNTER → 2024-03-08 15:11 | Outpatient (REF) | payer MEDICARE, OTHER, SELFPAY ==
[2024-03-08 10:24] LABS: % Basophils 0.8 % (0-2); % Immature Granulocytes 0.3 % (0-0.5); % Lymphocytes 44.2 % (20.5-51.1); % Monocytes 4.7 % (1.7-9.3); Absolute Lymphocytes 1.6 10^3/uL (1.2-3.4); Absolute Monocytes 0.2 10^3/uL (0.1-0.6); Absolute Neutrophils 1.8 10^3/uL (1.4-6.5); Hematocrit 31.9 % (39.0-52.0); Hemoglobin 9.7 g/dL (13.0-18.0); Mean Corp Hgb Conc. 30.4 g/dL (33.0-37.0); Mean Corpuscular Hgb 28.6 pg (27.0-31.0); Mean Corpuscular Volume 94.1 fL (80.0-94.0); Platelet Count 80 10^3/uL (130-400); Red Blood Cell Count 3.39 10^6/uL (4.70-6.10); Red Cell Dist. Width 22.1 % (11.5-14.5); White Blood Cell Count 3.6 10^3/uL (4.8-10.8)
== END ==
LOC: OIDL 15:11
PROVIDERS: ATTENDING PHYSICIAN Internal Medicine Hematology & Oncology
DX: D64.9 Anemia, unspecified (principal); D46.A Refractory cytopenia with multilineage dysplasia
CPT/HCPCS: 85025

== ENCOUNTER 2024-03-18 11:56 | Emergency (ER) | payer MEDICARE, OTHER, SELFPAY ==
[2024-03-18] VITALS (10 sets, daily range): BP systolic 99–128; BP diastolic 43–70; PULSE 65–74
--- NOTE | 2024-03-18 12:28 | ED.GENMED ---
History of Present Illness
General
Chief Complaint: Dizziness
Source: patient
Exam Limitations: none
Time Seen by Provider: 03/18/24 12:18
Nursing documentation reviewed up to this point in time: agreed with
History of Present Illness
History of Present Illness:
Patient is a 68-year-old male with history MDS presenting to the emergency department with a few months of worsening fatigue and lightheadedness. Patient notes feeling more tired than usual over the past few months and feeling lightheaded mostly
when changing positions from sitting to standing. His daughter thought that he appeared more pale than usual and recommended that he come to the emergency department for blood work. Patient does see Dr. Aguilar as oncologist. He has frequent blood
work.
Patient denies any headache, fevers, chills, chest pain or shortness of breath. Patient denies any bleeding or dizziness. Patient reports normal bowel movements and denies any hematochezia or melena. Patient denies any abdominal pain.
Past History
Past History
ED Past Medical History: Asthma and Other (Myelodysplastic syndrome)
ED Past Surgical History: Cholecystectomy
Social History
Tobacco: Non-smoker
Alcohol: None
Drug: None
Personal:
Living: with family
Review of Systems
Review of Systems
Allergies reviewed?: Yes
All Other Systems: ROS reviewed and negative except as documented in HPI and ROS
Phy Exam
Physical Exam
Physical Exam:
Vitals: Patient's vital signs are stable. Afebrile
General: Patient is well appearing, no acute distress
Skin: Warm and dry, no rashes or lesions
Head: Normocephalic, atraumatic
Eyes: Sclera nonicteric. EOMs intact. No nystagmus.
Throat: Protecting airway
Neck: Normal ROM, no cervical spine tenderness, no meningismus
Cardiac: Regular rate and rhythm, no murmurs.
Pulm: Normal respiratory effort, no wheezes, rales, rhonchi heard on exam.
Abdomen: Abdomen soft and nontender.
Extremities: No evidence of cyanosis or edema. Great distal pulses
Neuro: AAOx3. CN II-XII intact. No focal neurologic deficits.
Psychiatric: Normal affect.
Course
Orders/Labs/Results
Orders:
Orders
03/18/24 12:01
Electrocardiogram (*1) Urgent
Reason for Study: Chest Pain
EKG- Treatment ONCE
03/18/24 12:49
Orthostatic VS- Treatment ONCE
03/18/24 12:50
0.9% Sodium Chloride 1000 ml [Nss] 1,000 ml IV BOLUS
03/18/24 12:55
Type+Screen Urgent
Complete Blood Count/With Diff Urgent
Comprehensive Metabolic Panel Urgent
03/18/24 14:51
* Blood Bank Products Urgent
Blood Bank Products: *Packed RBC Leuko(PRBC's)
Quantity: 1
Transfuse Today: Yes
Reason: Anemia
Abnormal Lab Results
03/18/24
12:55
WBC 2.4 L* 10^3/uL
(4.8-10.8)
RBC 2.73 L 10^6/uL
(4.70-6.10)
Hgb 7.8 L g/dL
(13.0-18.0)
Hct 24.5 L %
(39.0-52.0)
MCHC 31.8 L g/dL
(33.0-37.0)
RDW 21.9 H %
(11.5-14.5)
Plt Count 66 L 10^3/uL
(130-400)
Absolute Neuts (auto) 1.1 L 10^3/uL
(1.4-6.5)
Absolute Lymphs (auto) 1.1 L 10^3/uL
(1.2-3.4)
BUN 30 H mg/dl
(9-20)
Glucose 114 H mg/dl
(70-99)
AST 16 L U/L
(17-59)
Crossmatch IS Only See Detail
03/18/24 12:55
03/18/24 12:55
Vital Signs
Blood pressure: 125/62
Initial and Last Documented VS:
Initial Vital Signs
Temp Pulse Resp BP Pulse Ox
97.8 F 79 16 99/65 98
03/18/24 11:58 03/18/24 11:58 03/18/24 11:58 03/18/24 11:58 03/18/24 11:58
Last Documented Vital Signs
Temp Pulse Resp BP Pulse Ox
98.6 F 68 18 128/66 99
03/18/24 18:46 03/18/24 18:46 03/18/24 18:46 03/18/24 18:46 03/18/24 18:46
MDM/Problems Addressed
Differential Diagnosis Includes:
Not limited to: acute on chronic anemia, orthostatic hypotension, dehydration, viral illness, etc
MDM/Problems Addressed:
68 year old male with hx as documented presenting with symptomatic anemia. Vitals stable. Exam as above. Basic labs reviewed. Notable for pancytopenia likely secondary to MDS. Hgb of 7.8 from 9.7 on 03/08/24. White count of 2.4 and plts of 66.
Otherwise unremarkable. EKG without acute ischemic changes. Labs discussed with oncologist, Dr. Ramirez. Will transfuse one unit PRBCs in ED and arrange for close outpatient f/u with Dr. Aguilar.
Chronic conditions affecting care:
MDS, anemia, thrombocytopenia
Acute Exacerbation and/or Progression of Chronic Illness:
Acute on chronic anemia
*Pulse Oximetry
Patient hypoxic: no
*EKG
Interpreted by ED Provider?: Yes
EKG Intrepretation Date: 03/18/24
Interpretation: normal
Comparison EKG: changes noted
Heart Rate: 67
Rate: normal
Rhythm: sinus
[place]: normal axis
QRS Pattern: low voltage
Ischemia: non-specific ST changes
*Critical Care Note
Total Time (30-74mins, 75-104mins- exclusive of procedures): Not Applicable
Data Reviewed
Review of Other/Old Records Reveals: Labs (CBC reviewed from 03/08/24 with hgb of 9.7 - stable anemia)
Patient Management
Discussion with other providers: Circulation Analyst (Hematology/oncology - Dr. Ramirez)
Update Note
Update Note:
Update: Patient received 1 unit PRBCs - tolerated well. Patient ambulating throughout ED room with steady gait and without lightheadedness. He was found to be mildly orthostatic and did receive a liter of NS. Patient stable for discharge with
oncology f/u outpatient. Return precautions discussed.Case discussed with attending physician.
ED Attending Note
-
Portions of this chart may have been created with voice recognition software.� Occasional wrong word or��sound alike� substitutions may have occurred due to the inherent limitations of voice recognition software.
Discharge Plan
Departure
Patient Disposition: Home (Routine Discharge)
Date of Disposition: 03/18/24
Time of Disposition: 18:57
Patient with high blood pressure during this ER visit?: No
Condition: Good
Covid-19: Not Applicable
Discharge Problem:
Symptomatic anemia, Fatigue, Pancytopenia
Instructions: Myelodysplastic Syndromes (MDS) (DC), Blood transfusion
Prescriptions:
No Action
Darbepoetin
500 mcg SC Q3W
Patient Comments:
08/19/2023, next dose: 08/19/2023 (today); Contacted OID Department to confirm dose and frequency.
ondansetron HCl [Zofran] 8 mg Tablet
8 mg PO Q8H PRN (Reason: nausea/vomiting)
prochlorperazine maleate [Compazine] 10 mg Tablet
10 mg PO Q6H PRN (Reason: nausea)
Referrals:
Meliton Gay MD [Family Provider] -
Brian Aguilar MD [Active] - Next open appointment
Activity Restrictions/Additional Instructions:
RETURN TO THE EMERGENCY DEPARTMENT WITH ANY FEVERS, HEADACHE, PERSISTENT LIGHTHEADEDNESS, BLEEDING, CHEST PAIN, SHORTNESS OF BREATH, WORSENING IN CURRENT SYMPTOMS, OR ANY OTHER CONCERNS
-You did receive 1 unit of blood today while in the emergency department. This was discussed with your oncology team. You should follow-up closely with your oncologist, Dr. Aguilar for further evaluation/management this week.
-It is important to stay well-hydrated and take it easy over the next few days.
Monitor your symptoms closely return to the emergency department any acute worsening/new symptoms or any signs of infection
Interventions
Interventions:
*Risk Screen - Suicide Last Done: 03/18/24 11:58
*General Assessment Last Done: 03/18/24 18:54
*Neglect/Abuse Screening Last Done: 03/18/24 11:58
ED- Fall Risk Assessment Last Done: 03/18/24 12:16
*Nursing Disposition Last Done: 03/18/24 19:20
ED- Cardiac Assessment Last Done: 03/18/24 12:16
ED- Neurological Assessment Last Done: 03/18/24 12:16
Discharge Date and Time
Discharge Date/Time: 03/18/24 19:20
Print Language: MACANESE
[2024-03-18] MEDS: NSS 1000 IV (12:55)
[2024-03-18 13:22] LABS: ALT (SGPT) 14 U/L (0-50); AST (SGOT) 16 U/L (17-59); Albumin 3.7 g/dl (3.5-5.0); Alkaline Phosphatase 56 U/L (38-126); Blood Urea Nitrogen 30 mg/dl (9-20); Calcium 8.9 mg/dl (8.4-10.2); Carbon Dioxide 27 mmol/L (22-30); Chloride 106 mmol/L (98-107); Glucose 114 mg/dl (70-99); Potassium 4.3 mmol/L (3.5-5.1); Sodium 139 mmol/L (135-145); Total Bilirubin 0.3 mg/dl (0.2-1.3); Total Protein 6.4 g/dl (6.3-8.2)
[2024-03-18 13:35] LABS: % Basophils 0.4 % (0-2); % Immature Granulocytes 0.4 % (0-0.5); % Lymphocytes 46.2 % (20.5-51.1); % Monocytes 8.5 % (1.7-9.3); % Neutrophils 44.5 % (42.2-75.2); Absolute Lymphocytes 1.1 10^3/uL (1.2-3.4); Absolute Monocytes 0.2 10^3/uL (0.1-0.6); Absolute Neutrophils 1.1 10^3/uL (1.4-6.5); Hematocrit 24.5 % (39.0-52.0); Hemoglobin 7.8 g/dL (13.0-18.0); Mean Corp Hgb Conc. 31.8 g/dL (33.0-37.0); Mean Corpuscular Hgb 28.6 pg (27.0-31.0); Mean Corpuscular Volume 89.7 fL (80.0-94.0); Nucleated Red Blood Cells % 1.3 % (-); Platelet Count 66 10^3/uL (130-400); Red Blood Cell Count 2.73 10^6/uL (4.70-6.10); Red Cell Dist. Width 21.9 % (11.5-14.5); White Blood Cell Count 2.4 10^3/uL (4.8-10.8)
== END 2024-03-18 19:20 | disposition home or self-care (01) ==
LOC: EMR 11:56
PROVIDERS: Physician Assistant; EMERGENCY PHYSICIAN Emergency Medicine; FAMILY PHYSICIAN Family Medicine; OTHER PHYSICIAN Internal Medicine Hematology & Oncology
DX: D64.9 Anemia, unspecified (principal); D61.818 Other pancytopenia; R53.83 Other fatigue
CPT/HCPCS: 99285; 36430; 96360; 80053; 85025; 86850; 86900; 86901; 86920; 93005; P9016

== ENCOUNTER → 2024-03-29 16:09 | Outpatient (REF) | payer MEDICARE, OTHER, SELFPAY ==
[2024-03-29 10:01] LABS: % Basophils 0.8 % (0-2); % Lymphocytes 47.2 % (20.5-51.1); % Monocytes 5.6 % (1.7-9.3); % Neutrophils 46.4 % (42.2-75.2); Absolute Lymphocytes 1.2 10^3/uL (1.2-3.4); Absolute Monocytes 0.1 10^3/uL (0.1-0.6); Absolute Neutrophils 1.2 10^3/uL (1.4-6.5); Hematocrit 32.8 % (39.0-52.0); Hemoglobin 10.3 g/dL (13.0-18.0); Mean Corp Hgb Conc. 31.4 g/dL (33.0-37.0); Mean Corpuscular Hgb 28.9 pg (27.0-31.0); Mean Corpuscular Volume 92.1 fL (80.0-94.0); Platelet Count 79 10^3/uL (130-400); Red Blood Cell Count 3.56 10^6/uL (4.70-6.10); Red Cell Dist. Width 21.1 % (11.5-14.5); White Blood Cell Count 2.5 10^3/uL (4.8-10.8)
== END ==
LOC: OIDL 16:09
PROVIDERS: ATTENDING PHYSICIAN Internal Medicine Hematology & Oncology
DX: D64.9 Anemia, unspecified (principal)
CPT/HCPCS: 85025

== ENCOUNTER → 2024-04-19 16:10 | Outpatient (REF) | payer MEDICARE, OTHER, SELFPAY ==
[2024-04-19 09:48] LABS: % Basophils 1.1 % (0-2); % Lymphocytes 46.2 % (20.5-51.1); % Monocytes 3.4 % (1.7-9.3); % Neutrophils 49.3 % (42.2-75.2); Absolute Lymphocytes 1.2 10^3/uL (1.2-3.4); Absolute Monocytes 0.1 10^3/uL (0.1-0.6); Absolute Neutrophils 1.3 10^3/uL (1.4-6.5); Hematocrit 31.5 % (39.0-52.0); Hemoglobin 9.6 g/dL (13.0-18.0); Mean Corp Hgb Conc. 30.5 g/dL (33.0-37.0); Mean Corpuscular Volume 95.2 fL (80.0-94.0); Platelet Count 85 10^3/uL (130-400); Red Blood Cell Count 3.31 10^6/uL (4.70-6.10); Red Cell Dist. Width 21.3 % (11.5-14.5); White Blood Cell Count 2.6 10^3/uL (4.8-10.8)
== END ==
LOC: OIDL 16:10
PROVIDERS: ATTENDING PHYSICIAN Internal Medicine Hematology & Oncology
DX: D64.9 Anemia, unspecified (principal); D46.A Refractory cytopenia with multilineage dysplasia
CPT/HCPCS: 85025

== ENCOUNTER 2024-04-26 14:37 | Inpatient (IN) | payer MEDICARE, OTHER, SELFPAY ==
[2024-04-26 11:35] VITALS: BP 97/70
[2024-04-26 12:05] VITALS: BP 119/71
[2024-04-26 12:30] VITALS: BMI 31.6
[2024-04-26] MEDS: NSS 1000 IV ×2 (12:45→16:31)
[2024-04-26] MEDS: TYLENOL 650 MG PO (12:58)
[2024-04-26 12:59] LABS: Hematocrit 31.6 % (39.0-52.0); Hemoglobin 9.7 g/dL (13.0-18.0); Mean Corp Hgb Conc. 30.7 g/dL (33.0-37.0); Mean Corpuscular Hgb 28.8 pg (27.0-31.0); Mean Corpuscular Volume 93.8 fL (80.0-94.0); Platelet Count 83 10^3/uL (130-400); Red Blood Cell Count 3.37 10^6/uL (4.70-6.10); Red Cell Dist. Width 21.7 % (11.5-14.5); White Blood Cell Count 3.1 10^3/uL (4.8-10.8)
[2024-04-26 13:00] VITALS: BP 119/72
[2024-04-26 13:13] LABS: Lactic Acid 2.9 mmol/L (0.7-2.0)
[2024-04-26 13:16] LABS: COVID-19 Antigen Negative (Negative)
--- NOTE | 2024-04-26 13:19 | ED.GENMED ---
History of Present Illness
General
Chief Complaint: Weakness
Source: patient
Exam Limitations: none
Time Seen by Provider: 04/26/24 11:53
Nursing documentation reviewed up to this point in time: agreed with
History of Present Illness
History of Present Illness:
pt is a 68 y/o Mwi th h/o myelodysplastic syndrome, weekly darbepoetin infusions [place] [facility]
here with yaneli burgess
pt had his shot last week
sometimes he ends up needing blood transfusion
so when he was a little weaker the past few days, the family suspected it was due to anemia
today pt is very weak, vomited x 1 and has a mild cough
family said they tried to get him up and he really couldn't get himself up without help
they were unaware he had a fever
no headache, neck pain, sore throat, chest pain, shortness of breath, abdominal pain, diarrhea.
no longer feels nauseated
feels a litel confused as well
Past History
Past History
ED Past Medical History: Asthma and Other (Myelodysplastic syndrome)
ED Past Surgical History: Cholecystectomy
Social History
Tobacco: Non-smoker
Alcohol: None
Drug: None
Personal:
Living: with family
Review of Systems
Review of Systems
Allergies reviewed?: Yes
All Other Systems: Not applicable
Phy Exam
Physical Exam
Physical Exam:
GENERAL: Alert , in no apparent distress, generalized weakness
EYE: pupils equal and reactive
NECK: Supple, no menigismus
ENT: o/p clr, mmm.
mild pharyngeal erythema
CARDIAC: tachycardic
LUNGS: occ cough, slight diminished bases b/l; no resp distress
ABDOMEN: Soft, without focal tenderness, no r/g, no cvat, normal bowel sounds
NEUROLOGICAL: Alert and oriented, no focal neuro deficits
SKIN: Warm and dry, skin intact.
MUSCULOSKELETAL: No edema, well perfused. neg alonso's sign
PSYCH: Normal and appropriate interaction.
Sepsis
Sepsis Screening
Sepsis Assessment: Sepsis
Sepsis Screen
Sepsis Screen: Sepsis
Date: 04/26/24
Time: 14:02
Course
Orders/Labs/Results
Orders:
Orders
04/26/24 12:15
0.9% Sodium Chloride 1000 ml [Nss] 1,000 ml IV BOLUS
Acetaminophen [Tylenol] 650 mg PO NOW STA
CR Chest - 2 Views Urgent
Comment:
Reason For Exam: fever, cough
04/26/24 12:35
Type+Screen Urgent
COVID-19 Antigen Urgent
Source: Nasal Swab
Complete Blood Count/With Diff Urgent
Comprehensive Metabolic Panel Urgent
Lactic Acid Q4H
Comment: CANCEL 2nd LACTIC ACID IF 1st LACTIC ACID IS LESS THAN 2
Lipase Urgent
Blood Culture Q30M
ETHAN Source: Blood/Venous
Specimen Description:
Blood Culture Q30M
ETHAN Source: Blood/Venous
Specimen Description:
Influenza A+B Rapid Molecular Urgent
ETHAN Source: Nasal Swab
Specimen Description:
04/26/24 13:18
Urinalysis Reflex To Culture Urgent
04/26/24 13:53
Piperacillin/Tazo 4.5 Gram [Zosyn] 4.5 gram in 100 ml IV NOW
Vancomycin [Vancocin] 2,000 mg 0.9% Sodium Chloride 500 ml [Nss] 500 ml IV NOW
04/26/24 16:15
Lactic Acid Q4H
Comment: CANCEL 2nd LACTIC ACID IF 1st LACTIC ACID IS LESS THAN 2
Abnormal Lab Results
04/26/24
12:35
WBC 3.1 L 10^3/uL
(4.8-10.8)
RBC 3.37 L 10^6/uL
(4.70-6.10)
Hgb 9.7 L g/dL
(13.0-18.0)
Hct 31.6 L %
(39.0-52.0)
MCHC 30.7 L g/dL
(33.0-37.0)
RDW 21.7 H %
(11.5-14.5)
Plt Count 83 L 10^3/uL
(130-400)
Absolute Lymphs (auto) 0.1 L 10^3/uL
(1.2-3.4)
Immature Gran % 1.0 H %
(0-0.5)
Neutrophils % 91.3 H %
(42.2-75.2)
Lymphocytes % 3.9 L %
(20.5-51.1)
BUN 34 H mg/dl
(9-20)
Creatinine 1.5 H mg/dL
(0.7-1.3)
Glucose 138 H mg/dl
(70-99)
Lactic Acid 2.9 H mmol/L
(0.7-2.0)
04/26/24 12:35
04/26/24 12:35
Vital Signs
Initial and Last Documented VS:
Initial Vital Signs
Temp Pulse Resp BP Pulse Ox
38.3 C H 117 20 97/70 96
04/26/24 11:35 04/26/24 11:35 04/26/24 11:35 04/26/24 11:35 04/26/24 11:35
Last Documented Vital Signs
Temp Pulse Resp BP Pulse Ox
38.3 C H 100 3 119/72 99
04/26/24 11:35 04/26/24 13:00 04/26/24 13:00 04/26/24 13:00 04/26/24 12:45
MDM/Problems Addressed
Differential Diagnosis Includes:
sepsis, flu, covid, viral syndrome, pna, uti, bacteremia;
MDM/Problems Addressed:
68 y/o M
MDS
gets weekly injections for his blood count
here with generatlized weakness; vomit x 1; cough
febrile
borderline bp on arrival
appears very weak generally, no focal weakness
abdomen nontender
wbc stable 3.1, thrombocytopenia stable; hg 9.7 which is about his normal
cxr indep reivewed, neg
flu/covid neg
bp holding at 110s with 1liter
pt appears weak, nonfocally
iwll obtain UA and then give empiric abx.
cultures pending
requires admission
*Critical Care Note
Total Time (30-74mins, 75-104mins- exclusive of procedures): Not Applicable
ED Attending Note
-
Portions of this chart may have been created with voice recognition software.� Occasional wrong word or��sound alike� substitutions may have occurred due to the inherent limitations of voice recognition software.
Discharge Plan
Departure
Patient Disposition: Admit
Date of Disposition: 04/26/24
Time of Disposition: 13:52
Admit to: Med/Surg
Presentation/result/management discussed w/ accepting MD/DO: Hospitalist
Condition: Fair
Covid-19: Not Applicable
Discharge Problem:
Fever, Sepsis
Prescriptions:
No Action
Darbepoetin
500 mcg SC Q3W
Patient Comments:
08/19/2023, next dose: 08/19/2023 (today); Contacted OID Department to confirm dose and frequency.
ondansetron HCl [Zofran] 8 mg Tablet
8 mg PO Q8H PRN (Reason: nausea/vomiting)
prochlorperazine maleate [Compazine] 10 mg Tablet
10 mg PO Q6H PRN (Reason: nausea)
Referrals:
Meliton Gay MD [Family Provider] -
Interventions
Interventions:
*Risk Screen - Suicide Last Done: 04/26/24 12:30
*General Assessment Last Done: 04/26/24 12:30
*Neglect/Abuse Screening Last Done: 04/26/24 12:30
ED- Fall Risk Assessment Last Done: 04/26/24 12:30
*ED COVID-19 Vaccine History Last Done: 04/26/24 12:30
ED- Cardiac Assessment Last Done: 04/26/24 12:30
ED- Neurological Assessment Last Done: 04/26/24 12:30
ED- Pulmonary Assessment Last Done: 04/26/24 12:30
Discharge Date and Time
Print Language: YAKUT
[2024-04-26 13:21] LABS: ALT (SGPT) 18 U/L (0-50); AST (SGOT) 18 U/L (17-59); Albumin 4.2 g/dl (3.5-5.0); Alkaline Phosphatase 63 U/L (38-126); Blood Urea Nitrogen 34 mg/dl (9-20); Calcium 8.7 mg/dl (8.4-10.2); Carbon Dioxide 26 mmol/L (22-30); Chloride 103 mmol/L (98-107); Estimated Creatinine Clearance 49 ml/min; Glucose 138 mg/dl (70-99); Lipase 56 U/L (23-300); Potassium 4.9 mmol/L (3.5-5.1); Sodium 141 mmol/L (135-145); Total Bilirubin 0.7 mg/dl (0.2-1.3); eGFR 49.77
[2024-04-26 13:40] LABS: % Basophils 0.3 % (0-2); % Lymphocytes 3.9 % (20.5-51.1); % Monocytes 3.5 % (1.7-9.3); % Neutrophils 91.3 % (42.2-75.2); Absolute Lymphocytes 0.1 10^3/uL (1.2-3.4); Absolute Monocytes 0.1 10^3/uL (0.1-0.6); Absolute Neutrophils 2.8 10^3/uL (1.4-6.5)
[2024-04-26 14:08] VITALS: BP 104/65
[2024-04-26] MEDS: ZOSYN 100 IV (14:09)
--- NOTE | 2024-04-26 14:22 | HPS.HSE ---
Family Physician
-
Family Physician: Meliton Gay
Chief Complaint
-
weakness
History of Present Illness
68-year-old male past medical history of myelodysplastic syndrome on immunotherapy/chemotherapy every 3 weeks, recurrent transfusion/darbepoetin dependent anemia, thrombocytopenia, constipation, pancreatitis, osteoarthritis, obesity, presenting with
generalized weakness since this morning. He has been feeling generally weak for the past few days and family suspected it was due to anemia. He has had 1 episode of vomiting and mild cough that is nonproductive. He could not get up without
assistance and was a little confused. They were not aware that he had a fever. No headache, neck pain, sore throat, chest pain, shortness of breath, abdominal pain, diarrhea or urinary symptoms. Denies any bleeding. Denies any rashes or joint
pain.
Denies smoking or alcohol use.
Medical History
Past Medical History
Past Medical History: Reports Other ( myelodysplastic syndrome on immunotherapy/chemotherapy every 3 weeks, recurrent transfusion/darbepoetin dependent anemia, thrombocytopenia, constipation, pancreatitis, osteoarthritis, obesity)
Past Surgical History: Reports Other (Cholecystectomy)
Social History
Tobacco: Non-smoker
Alcohol: None
Drug: None
Family History
Family History: Not pertinent
Allergies / Home Medications
Allergies reflects when Allergies were last updated in [employer].
Home Medications with original date entered in [employer]
Allergy/Medication List:
Allergies
Allergy/AdvReac Type Severity Reaction Status Date / Time
Horse/Equine Containing Allergy 'years Verified 04/26/24 11:37
Products ago,
unsure of
reaction'
Home Medications
No Meds [No Current Medications] 04/26/24
Review of Systems
-
History Source: Patient
A 12 point ROS was completed and negative except as noted: Yes
Constitutional: Reports No Symptoms
EENT: Reports No Symptoms
Respiratory: Reports No Symptoms
Cardiac: Reports No Symptoms
Abdomen/GI: Reports No Symptoms
: Reports No Symptoms
Musculoskeletal: Reports No Symptoms
Skin: Reports No Symptoms
Neurological: Reports No Symptoms
Endocrine: Reports No Symptoms
Hematologic/Lymphatic: Reports No Symptoms
Psych: Reports No Symptoms
Physical Exam
Vital Signs
Vital Signs
Temp Pulse Resp BP Pulse Ox
100.9 F H 100 3 119/72 99
04/26/24 11:35 04/26/24 13:00 04/26/24 13:00 04/26/24 13:00 04/26/24 12:45
Physical Exam
General: Well Developed, Well Nourished and No Apparent Distress
HEENT: NormoCephalic, Moist mucous membranes and Atraumatic
Respiratory: Clear
Cardiac: S1/S2 and Regular Rhythm; No Murmur or Rub
GI: Soft, Non Tender, Non Distended and Normal Bowel Sounds; No Organomegaly
Rectal: Deferred by Provider
Musculoskeletal: No Clubbing, No Cyanosis and No Edema
Skin: No Rash
Neuro: Nonfocal/grossly intact
Laboratory Results
-
04/26/24 12:35
04/26/24 12:35
Laboratory Results
Lactic Acid 2.9 mmol/L (0.7-2.0) H 04/26/24 12:35
Total Bilirubin 0.7 mg/dl (0.2-1.3) 04/26/24 12:35
AST 18 U/L (17-59) 04/26/24 12:35
ALT 18 U/L (0-50) 04/26/24 12:35
Alkaline Phosphatase 63 U/L (38-126) 04/26/24 12:35
Lipase 56 U/L (23-300) 04/26/24 12:35
Data Reviewed
-
Lab Data: Labs Reviewed by me
Old Records: Reviewed
Impression/Plan
-
IMPRESSION:
PLAN:
# SIRS (fever, tachycardia) unclear source in immunocompromised patient
-No focal symptom to suggest source
-COVID-negative, influenza negative
-Chest x-ray unremarkable
-Check urinalysis
-Check blood cultures
-IV fluids
-Vancomycin/Zosyn
Myelodysplastic syndrome
-On treatment every 3 weeks, follows at [facility]
Recurrent transfusion dependent anemia
-Hemoglobin stable at 9.7
Chronic thrombocytopenia
-Stable
History of pancreatitis
Osteoarthritis
Obesity
Full code
DVT prophylaxis�SCDs
Regular diet
[2024-04-26] MEDS: VANCOCIN 540 MG IV (14:47)
[2024-04-26 14:58] LABS: Urine Albumin Trace (Neg - Trace); Urine Bilirubin Negative (Negative); Urine Character Clear (Clear); Urine Color Yellow; Urine Glucose Negative (Negative); Urine Ketone Negative (Negative); Urine Leukocyte Negative (Negative); Urine Nitrite Negative (Negative); Urine Occult Blood Negative (Negative); Urine Specific Gravity 1.025 (<1.030); Urine Urobilinogen Negative (Neg - 1+)
--- NOTE | 2024-04-26 15:45 | PTCARENOTE ---
Pt was received from ED at 1545. Pt ambulated to the unit bed with assistance of an RN and a tech. Pt is generally weak, unsteady gait. Assisted to lay down in bed. Bed alarm in use. Pt is AAOx3, but is lethargic, responds to verbal stimulus. Temp
99.0 on arrival. Oriented to the room and call rahman in reach.
[2024-04-26 15:47] VITALS: BP 121/66; BMI 31.4
--- NOTE | 2024-04-26 15:49 | PHA.VAN.IN ---
Assessment
- Assessment
Renal Function: Unknown baseline
Concomitant Antimicrobials: piperacillin/tazobactam
Plan
- Plan
Initial / Loading Dose: 2000mg - 04/26 14:47
Maintenance Regimen: dosing by level
Monitoring: random 04/27 0600
Pharmacokinetics Vancomycin I
- -
Patient Age: 68
Patient Sex: Male
Vancomycin Day #: 1
Indication: Bacteremia
Requesting Provider: Dr. Powers
Pertinent Antimicrobial Allergies:
no pertinent antibiotic allergies
Height / Weight:
Height 5 ft 7 in
Actual Weight 90.718 kg
Pertinent Past Medical History: BMI ~31, MDS
- Vital Signs / Lab Results
Temp Pulse Resp BP Pulse Ox
99.0 F 97 16 121/66 96
04/26/24 15:47 04/26/24 15:47 04/26/24 15:47 04/26/24 15:47 04/26/24 15:47
Lab Results - Hematology
04/26/24
12:35
WBC 3.1 L
Lab Results - Chemistry
04/26/24
12:35
BUN 34 H
Creatinine 1.5 H
Estimated Creat Clear 49
Albumin 4.2
04/26/24
12:35
Lactic Acid 2.9 H
Lab Results - Urine
04/26/24
14:11
Urine Nitrite (Reflex) Negative
Leukocyte Esterase Rfl Negative
Microbiology Results
04/26/24 12:35 Influenza Types A & B (MARY) - Final
Nasal Swab Negative for Influenza A & B, NAAT
Negative results must be combined with clinical observations
and patient history.
Nucleic Acid Amplification test (NAAT)performed on the
SHAPE platform.
[2024-04-26 16:45] LABS: Lactic Acid 2.2 mmol/L (0.7-2.0)
[2024-04-26] MEDS: ZOSYN 50 IV (19:39)
[2024-04-26 22:21] LABS: Lactic Acid 1.6 mmol/L (0.7-2.0)
[2024-04-26 23:40] VITALS: BP 124/71
[2024-04-27] MEDS: ZOSYN 50 IV (01:51)
[2024-04-27] MEDS: NSS 1000 IV (01:51)
[2024-04-27 07:06] VITALS: BP 106/55
[2024-04-27] MEDS: VIBRAMYCIN 260 MG IV ×2 (07:59→19:58)
[2024-04-27] MEDS: ROCEPHIN 1000 MG IV (07:59)
[2024-04-27] MEDS: STERILE WATER FOR INJECTION 10 ML IV (07:59)
[2024-04-27 09:26] LABS: ALT (SGPT) 13 U/L (0-50); AST (SGOT) 15 U/L (17-59); Albumin 2.9 g/dl (3.5-5.0); Alkaline Phosphatase 47 U/L (38-126); Blood Urea Nitrogen 27 mg/dl (9-20); Calcium 7.3 mg/dl (8.4-10.2); Carbon Dioxide 24 mmol/L (22-30); Chloride 106 mmol/L (98-107); Estimated Creatinine Clearance 49 ml/min; Glucose 108 mg/dl (70-99); Potassium 4.2 mmol/L (3.5-5.1); Sodium 139 mmol/L (135-145); Total Bilirubin 0.5 mg/dl (0.2-1.3); Total Protein 5.3 g/dl (6.3-8.2); eGFR 49.77
[2024-04-27 09:30] LABS: Hematocrit 23.6 % (39.0-52.0); Hemoglobin 7.3 g/dL (13.0-18.0); Mean Corp Hgb Conc. 30.9 g/dL (33.0-37.0); Mean Corpuscular Hgb 28.9 pg (27.0-31.0); Mean Corpuscular Volume 93.3 fL (80.0-94.0); Red Blood Cell Count 2.53 10^6/uL (4.70-6.10); Red Cell Dist. Width 21.5 % (11.5-14.5); White Blood Cell Count 1.5 10^3/uL (4.8-10.8)
--- NOTE | 2024-04-27 09:39 | W.PN.HOSP.TC ---
Today's Communication/Plan
-
See PN
Assessment / Plan
Assessment / Plan
68yo M with PMHx of myelodysplastic syndrome on immuno and chemo therapy and transfussion-dependent, pancreatitis, DJD came with worsening weakness, found fever in ED. Was also c/o mild cough. Started on Abx for possible pneumonia. Patient also c/o
intermittent chronic diarrhea
A/P:
#Fever, concern for pneumonia'
COVID-19 and Influenza PCR neg
Check legionella and S/pneumonia
Bcx pending
no signs of UTI on UA
Check procalcitonin
#Myelodysplastic syndrome with pancytopenia
follow CBC
transfuse as needed
#Chronic diarrhea
stool studies if reoccur
#CKD stage 3a
follow Ct
baseline 1.3-1.5
DVT ppx on SCDs
Full code
I have spent at least 59min reviewing chat, test results and direct patient care
Anticipated Discharge: > 48 hours
Subjective/Interval History
-
Date of Service: April 27, 2024
Objective Data
-
Labs:
Laboratory Results
04/27/24
07:06
WBC 1.5 L*
Hgb 7.3 L D
Hct 23.6 L
Plt Count Pending
Sodium 139
Potassium 4.2
Chloride 106
Carbon Dioxide 24
BUN 27 H
Creatinine 1.5 H
Glucose 108 H
Calcium 7.3 L
Total Bilirubin 0.5
AST 15 L
ALT 13
Alkaline Phosphatase 47
Vital Signs:
Vital Signs
Temp Pulse Resp BP Pulse Ox
98.4 F 85 20 106/55 98
04/27/24 07:06 04/27/24 07:06 04/27/24 07:06 04/27/24 07:06 04/27/24 07:06
I&O
04/26/24 04/27/24 04/28/24
06:59 06:59 06:59
Intake Total 2229 / 2229
Output Total 450 / 450
Balance 178 / 178
Review of Systems
-
History Source: Patient
All other systems: Reviewed and negative
Respiratory: Reports Cough
Physical Exam
-
General: Comfortable
Respiratory: Clear to Auscultation
Cardiac: Regular Rhythm
GI: Soft, Nontender and Nondistended
Musculoskeletal: No Clubbing, No Cyanosis and No Edema
Skin: Warm
Neuro: Awake, Alert, Oriented and AO x 3
Psych: Calm
[2024-04-27 10:46] LABS: Procalcitonin 0.32 ng/ml (0.0-0.25)
[2024-04-27 12:46] LABS: Platelet Count 56 10^3/uL (130-400)
[2024-04-27 13:22] LABS: Band Neutrophils 7 % (0-3); Lymphocytes 30 % (20-51); Monocytes 2 % (2-9); Segmented Neutrophils 61 % (42-75)
[2024-04-27 13:23] LABS: Anisocytosis 1+; Microcytosis 1+; Normal RBC Morphology No; Ovalocytes 1+; Platelets Checked Yes; Polychromasia 1+; Stomatocytes 1+; Target Cells 1+
[2024-04-27 13:24] LABS: Acanthocytes 1+; Spherocytes 1+; Total Cells Counted 100
[2024-04-27 15:31] VITALS: BP 141/69
--- NOTE | 2024-04-27 15:36 | PN.CDI ---
Addendum entered and electronically signed by Pro Curry MD 04/27/24 15:47:
no sepsis
Original Note:
CDI
- -
CDI:
Physician Documentation Request
Admit Date: 04/26/24 14:37
Dear Doctor Patricio,
Please review the following and provide your response in the progress notes.
Clinical Indicators:
Pt admitted with fever /suspected PNA now on Rocephin
Documented per H&P,' SIRS (fever, tachycardia) unclear source in immunocompromised patient....-IV fluids Vancomycin/Zosyn...'
On admission Tmax 100.9, HR 117, RR 28
Please clarify which of the following most accurately describes the status of the patient's infection:
Sepsis-POA
- Systemic manifestations of infection, with 2 or more SIRS criteria which include:
- Fever >100.4 degrees F or hypothermia < 96.8 degrees F
- Leukocytosis - WBC > 12,000 or leukopenia - WBC < 4,000 or > 10% bands
- Tachycardia > 90 beats per minute
- Tachypnea - RR > 20 breaths per minute or PaCO2 , 32mmHg
Source: Merck Manual 2013
Pneumonia only, Without Systemic Illness
Other ( please specify)
Use of terms such as suspected, likely, concern for, or probable (associated with a specific diagnosis that is being evaluated, monitored, or treated as if it exists) are acceptable and can be coded in the inpatient setting, when documented at the
time of discharge.
Thank you,
Katerin Seo RN
CDI Specialist
[place] [facility]
Please use your independent medical judgment in providing your response.
--- NOTE | 2024-04-27 16:12 | CM ---
Alert awake oriented patient who lives with his step dgt Peggy and Genaro her who lives in a 2 story home with 4 step to enter and 15 steps to bed and bathroom. He is independent in driving and in all activities of daily living.He was
offered VN he declined need.
No VN hx / No SNF history
Pharmacy [facility]
PCP DR Meliton Gay
PLAN Home Declined VN
[2024-04-27 23:57] VITALS: BP 120/60
[2024-04-28 07:02] LABS: Hematocrit 23.2 % (39.0-52.0); Mean Corp Hgb Conc. 30.2 g/dL (33.0-37.0); Mean Corpuscular Hgb 29.4 pg (27.0-31.0); Mean Corpuscular Volume 97.5 fL (80.0-94.0); Platelet Count 45 10^3/uL (130-400); Red Blood Cell Count 2.38 10^6/uL (4.70-6.10); Red Cell Dist. Width 21.2 % (11.5-14.5); White Blood Cell Count 1.9 10^3/uL (4.8-10.8)
[2024-04-28 07:09] LABS: ALT (SGPT) 16 U/L (0-50); AST (SGOT) 20 U/L (17-59); Albumin 2.9 g/dl (3.5-5.0); Alkaline Phosphatase 51 U/L (38-126); Blood Urea Nitrogen 27 mg/dl (9-20); Calcium 7.8 mg/dl (8.4-10.2); Carbon Dioxide 23 mmol/L (22-30); Chloride 109 mmol/L (98-107); Estimated Creatinine Clearance 53 ml/min; Glucose 86 mg/dl (70-99); Potassium 4.2 mmol/L (3.5-5.1); Sodium 141 mmol/L (135-145); Total Bilirubin 0.3 mg/dl (0.2-1.3); Total Protein 5.5 g/dl (6.3-8.2); eGFR 54.07
[2024-04-28 07:10] VITALS: BP 113/48
[2024-04-28] MEDS: STERILE WATER FOR INJECTION 10 ML IV (08:01)
[2024-04-28] MEDS: ROCEPHIN 1000 MG IV (08:01)
[2024-04-28] MEDS: VIBRAMYCIN 260 MG IV ×2 (08:04→20:57)
--- NOTE | 2024-04-28 08:21 | CON.ONC ---
Impression
Impression
MDS on Luspatercept -complex�karyotype�with�>3�cytogenetic�abnormalities�suggesting�a�poor�prognosis.
pancytopenia secondary to MDS +/- antineoplastic therapy. Baseline WBC ~2.5, ANC <1.5, Hgb ~9g/dL (last PRBC 03/18), platelet ~80k (last SDP 09/02/2023)
neutropenic fever
Plan
Plan
neutropenic precautions, no role for GCSF
follow cultures -on empiric abx per primary service
Transfuse�PRBCs�for�Hgb�<�7.5�and�PLTs�<�20
Luspatercept, next OP dose scheduled 05/10
Patient History
History of Present Illness
68yo M with MDS on Luspatercept presented with general weakness. He reports feeling fatigue over the past couple of days, however, acute onset of weakness and new mild confusion this morning prompting ER evaluation. He reports 1 episode of
non-bloody vomit yesterday and a mild non-productive cough. His initial evaluation was notable for Tmax 100.9F, WBC 1.9, ANC 700, Hgb 7g/dL, MCV 97.5, platelets 45,000. His COVID and influenza were negative. His C.diff was negative. CXR showed
no evidence of PNA. Bcx, stool culture, and Ucx are pending. He was admitted and started on empiric abx.
He is known to Dr. Aguilar for management of his MDS, complex�karyotype�with�>3�cytogenetic�abnormalities�suggesting�a�poor�prognosis. He was previously treated with azacitidine plus Aranesp, however, both discontinued after 6months of therapy due to
poor response.
Clinically, denies fever, chills, sob, chest pain, palpitations, diarrhea, constipation, sick contacts or abdominal pain.
Past-Medical/Surgical History
Past Medical History
Basel cell
COPD
GERD
obesity
CKD
Past Surgical History
Cataracts 2018
cholecystectomy 2018
ear canal drilled 1996
L hip
Social History
Never Smoker
Patient Medication
�Medication �Instructions �Recorded �Confirmed �Last Taken �Type
No Meds [No Current Medications] 04/26/24 04/26/24 Unknown History
Active Medications
Generic Name Dose Route Start Last Admin
Trade Name Freq PRN Reason Stop Dose Admin
Acetaminophen 650 mg 04/26/24 15:29
Acetaminophen 325 Mg Tablet PO 05/24/24 15:28
Q4HPRN PRN
mild pain/COLBY/temp> 100.4F
Ceftriaxone Sodium 1,000 mg 04/27/24 08:00 04/28/24 08:01
Ceftriaxone 1000 Mg / 10 Ml Vial IV 1,000 mg
Q24H MERVIN Administration
Doxycycline Hyclate 100 mg/ 260 mls @ 260 mls/hr 04/27/24 08:00 04/28/24 08:04
Sodium Chloride IV 260 mls
Q12H MERVIN Administration
Ibuprofen 400 mg 04/26/24 15:29
Ibuprofen 400 Mg Tablet PO 05/24/24 15:28
Q6HPRN PRN
mild pain
Sodium Chloride 0 flush 04/26/24 17:00
Sodium Chloride 0.9% (Flush) Syringe IV 05/24/24 16:59
PER PROTOCOL MERVIN
Sterile Water 10 ml 04/27/24 08:00 04/28/24 08:01
Sterile Water For Injection 10 Ml Vial IV 05/25/24 07:59 10 ml
Q24H MERVIN Administration
Review of Systems
-
ROS notable for HPI, otherwise negative
Physical Exam
-
General: No Apparent Distress
HEENT: Moist Mucous Membranes; Negative Jaundice
Cardiology: Normal Sinus Rhythm
Pulmonary: Clear
GI: Soft
Extremities: Pulses Present and Edema (b/l trace edema)
Neurology: Non Focal
Skin: Warm
Psych: Calm
Labs
Lab Results
WBC 1.9 10^3/uL (4.8-10.8) L* 04/28/24 05:42
RBC 2.38 10^6/uL (4.70-6.10) L 04/28/24 05:42
Hgb 7.0 g/dL (13.0-18.0) L 04/28/24 05:42
Hct 23.2 % (39.0-52.0) L 04/28/24 05:42
MCV 97.5 fL (80.0-94.0) H 04/28/24 05:42
MCH 29.4 pg (27.0-31.0) 04/28/24 05:42
MCHC 30.2 g/dL (33.0-37.0) L 04/28/24 05:42
RDW 21.2 % (11.5-14.5) H 04/28/24 05:42
Plt Count 45 10^3/uL (130-400) L 04/28/24 05:42
MPV Not Reportable 04/28/24 05:42
Abs Immat Gran (auto) 0.0 10^3/uL (0-0.05) 04/26/24 12:35
Absolute Neuts (auto) 2.8 10^3/uL (1.4-6.5) 04/26/24 12:35
Absolute Lymphs (auto) 0.1 10^3/uL (1.2-3.4) L 04/26/24 12:35
Absolute Monos (auto) 0.1 10^3/uL (0.1-0.6) 04/26/24 12:35
Absolute Eos (auto) 0.0 10^3/uL (0-0.7) 04/26/24 12:35
Absolute Basos (auto) 0.0 10^3/uL (0-0.2) 04/26/24 12:35
Immature Gran % 1.0 % (0-0.5) H 04/26/24 12:35
Neutrophils % 91.3 % (42.2-75.2) H 04/26/24 12:35
Lymphocytes % 3.9 % (20.5-51.1) L 04/26/24 12:35
Monocytes % 3.5 % (1.7-9.3) 04/26/24 12:35
Eosinophils % 0.0 % (0-6) 04/26/24 12:35
Basophils % 0.3 % (0-2) 04/26/24 12:35
Creatinine 1.4 mg/dL (0.7-1.3) H 04/28/24 05:42
Vital Signs
Vital Signs
Temp Pulse Resp BP Pulse Ox
99.1 F 82 12 120/60 96
04/27/24 23:57 04/27/24 23:57 04/27/24 23:57 04/27/24 23:57 04/27/24 23:57
[2024-04-28 08:26] LABS: % Immature Granulocytes 1.1 % (0-0.5); % Lymphocytes 51.9 % (20.5-51.1); % Monocytes 7.9 % (1.7-9.3); % Neutrophils 39.1 % (42.2-75.2); Absolute Monocytes 0.2 10^3/uL (0.1-0.6); Absolute Neutrophils 0.7 10^3/uL (1.4-6.5); Nucleated Red Blood Cells % 0 % (-)
[2024-04-28 11:39] VITALS: BP 124/64
[2024-04-28 11:55] VITALS: BP 137/63
--- NOTE | 2024-04-28 11:57 | W.PN.HOSP.TC ---
Today's Communication/Plan
-
COnt Abx, follow CBC
Assessment / Plan
Assessment / Plan
68yo M with PMHx of myelodysplastic syndrome on immuno and chemo therapy and transfusion-dependent, pancreatitis, DJD came with worsening weakness, found fever in ED. Was also c/o mild cough. Started on Abx for possible pneumonia. Patient also c/o
intermittent chronic diarrhea
A/P:
#Fever, concern for pneumonia'
COVID-19 and Influenza PCR neg
Check legionella and S/pneumonia
Bcx pending
no signs of UTI on UA
Check procalcitonin
#Myelodysplastic syndrome with pancytopenia
follow CBC
transfuse as needed - s/p 1 unit PRBC on 04/28/24
Hematology consult
Neutropenic precautions
#Chronic diarrhea
C.diff neg, stool Cx pending
#CKD stage 3a
follow Ct
baseline 1.3-1.5
DVT ppx on SCDs
Full code
I have spent at least 59min reviewing chat, test results and direct patient care
Anticipated Discharge: > 48 hours
Subjective/Interval History
-
Date of Service: April 28, 2024
Objective Data
-
Labs:
Laboratory Results
04/28/24
05:42
WBC 1.9 L*
Hgb 7.0 L
Hct 23.2 L
Plt Count 45 L
Sodium 141
Potassium 4.2
Chloride 109 H
Carbon Dioxide 23
BUN 27 H
Creatinine 1.4 H
Glucose 86
Calcium 7.8 L
Total Bilirubin 0.3
AST 20
ALT 16
Alkaline Phosphatase 51
Vital Signs:
Vital Signs
Temp Pulse Resp BP Pulse Ox
98.5 F 65 18 137/63 99
04/28/24 11:55 04/28/24 11:55 04/28/24 11:55 04/28/24 11:55 04/28/24 11:55
I&O
04/27/24 04/28/24 04/29/24
06:59 06:59 06:59
Intake Total 2230 / 2230 1410 / 1410 0 / 0
Output Total 450 / 450 300 / 300
Balance 1780 / 1780 1110 / 1110 0 / 0
Review of Systems
-
History Source: Patient
All other systems: Reviewed and negative
Respiratory: Reports Cough
Physical Exam
-
General: No Apparent Distress
HEENT: Normocephalic
Respiratory: Clear to Auscultation
GI: Soft, Nontender and Nondistended
Neuro: Awake, Alert, Oriented and AO x 3
Psych: Calm
--- NOTE | 2024-04-28 12:31 | CM ---
Patient continues on IV ABX at this time. TEACHERS ASSISTANT (I) amb and adls. VN declined.
Plan: Discharge to home with no needs. Declined VN
[2024-04-28 14:41] VITALS: BP 124/65
[2024-04-28 15:05] VITALS: BP 132/61
[2024-04-28 23:03] VITALS: BP 130/63
[2024-04-29 07:10] VITALS: BP 122/49
[2024-04-29] MEDS: ROCEPHIN 1000 MG IV (08:02)
[2024-04-29] MEDS: STERILE WATER FOR INJECTION 10 ML IV (08:02)
[2024-04-29] MEDS: FLUSH (NSS) 1 FLUSH IV (08:03)
[2024-04-29] MEDS: VIBRAMYCIN 260 MG IV ×2 (08:03→21:00)
--- NOTE | 2024-04-29 08:29 | W.PN.HOSP.TC ---
Today's Communication/Plan
-
pending labs
cont Abx - remained afebrile >72H, if labs improving - medically will be stable for d/c. PT/OT for dispo
Assessment / Plan
Assessment / Plan
68yo M with PMHx of myelodysplastic syndrome on immuno and chemo therapy and transfusion-dependent, pancreatitis, DJD came with worsening weakness, found fever in ED. Was also c/o mild cough. Started on Abx for possible pneumonia. Patient also c/o
intermittent chronic diarrhea
A/P:
#Fever, bronchiolitis
COVID-19 and Influenza PCR neg
Check legionella and S/pneumonia
Bcx pending
no signs of UTI on UA
Check procalcitonin
#Myelodysplastic syndrome with pancytopenia
follow CBC
transfuse as needed - s/p 1 unit PRBC on 04/28/24
Hematology consult
Neutropenic precautions
#Chronic diarrhea
C.diff neg, stool Cx pending
#CKD stage 3a
follow Ct
baseline 1.3-1.5
DVT ppx on SCDs
Full code
I have spent at least 39min reviewing chat, test results and direct patient care
Anticipated Discharge: Within 24 hours
Subjective/Interval History
-
Date of Service: April 29, 2024
Objective Data
-
Labs:
Laboratory Results
04/29/24
06:52
WBC Pending
Hgb Pending
Hct Pending
Plt Count Pending
Sodium Pending
Potassium Pending
Chloride Pending
Carbon Dioxide Pending
BUN Pending
Creatinine Pending
Glucose Pending
Calcium Pending
Total Bilirubin Pending
AST Pending
ALT Pending
Alkaline Phosphatase Pending
Vital Signs:
Vital Signs
Temp Pulse Resp BP Pulse Ox
97.8 F 56 14 122/49 99
04/29/24 07:10 04/29/24 07:10 04/29/24 07:10 04/29/24 07:10 04/29/24 08:01
I&O
04/28/24 04/29/24 04/30/24
06:59 06:59 06:59
Intake Total 1410 / 1410 490 / 490
Output Total 300 / 300
Balance 1110 / 1110 490 / 490
Review of Systems
-
History Source: Patient
All other systems: Reviewed and negative
Physical Exam
-
General: No Apparent Distress
HEENT: Normocephalic
Respiratory: Clear to Auscultation
GI: Soft, Nontender and Nondistended
Musculoskeletal: No Clubbing, No Cyanosis and No Edema
Neuro: Awake, Alert, Oriented and AO x 3
Psych: Calm
[2024-04-29 08:59] LABS: Hematocrit 25.6 % (39.0-52.0); Hemoglobin 8.5 g/dL (13.0-18.0); Mean Corp Hgb Conc. 33.2 g/dL (33.0-37.0); Mean Corpuscular Hgb 30.1 pg (27.0-31.0); Mean Corpuscular Volume 90.8 fL (80.0-94.0); Platelet Count 38 10^3/uL (130-400); Red Blood Cell Count 2.82 10^6/uL (4.70-6.10); Red Cell Dist. Width 19.1 % (11.5-14.5)
[2024-04-29 09:32] VITALS: BP 124/60; BP 133/60; PULSE 63; O2SAT 99
[2024-04-29 09:35] LABS: White Blood Cell Count 1.9 10^3/uL (4.8-10.8)
[2024-04-29 09:37] VITALS: BP 124/60; BP 133/66; PULSE 62; O2SAT 99
[2024-04-29 09:39] LABS: % Immature Granulocytes 0.5 % (0-0.5); % Lymphocytes 52.1 % (20.5-51.1); % Monocytes 4.1 % (1.7-9.3); % Neutrophils 43.3 % (42.2-75.2); Absolute Monocytes 0.1 10^3/uL (0.1-0.6); Absolute Neutrophils 0.8 10^3/uL (1.4-6.5)
[2024-04-29 10:52] LABS: ALT (SGPT) 21 U/L (0-50); AST (SGOT) 24 U/L (17-59); Albumin 3.1 g/dl (3.5-5.0); Alkaline Phosphatase 45 U/L (38-126); Blood Urea Nitrogen 24 mg/dl (9-20); Calcium 8.1 mg/dl (8.4-10.2); Carbon Dioxide 23 mmol/L (22-30); Chloride 109 mmol/L (98-107); Estimated Creatinine Clearance 62 ml/min; Glucose 92 mg/dl (70-99); Potassium 4.4 mmol/L (3.5-5.1); Sodium 142 mmol/L (135-145); Total Bilirubin 0.4 mg/dl (0.2-1.3); Total Protein 5.9 g/dl (6.3-8.2); eGFR > 60.00
--- NOTE | 2024-04-29 14:30 | W.PN.ONC2 ---
Today's Communication / Plan
-
Counts are still dropping, but patient has been afebrile since admission.
Okay to discharge on oral antibiotics for presumed bronchiolitis as per chest CT. Current chest x-ray is clear.
We will arrange for patient to have a CBC with differential done as an outpatient on 05/03.
Cleared for discharge from our standpoint.
Impression
Impression
MDS, currently on Luspatercept alone, last chemotherapy in July/2023
Neutropenic fever
Possible bronchiolitis
Plan
Plan
Counts are still dropping, but patient has been afebrile since admission.
Okay to discharge on oral antibiotics for presumed bronchiolitis as per chest CT. Current chest x-ray is clear.
We will arrange for patient to have a CBC with differential done as an outpatient on 05/03.
Cleared for discharge from our standpoint.
Subjective/Objective
Chief Complaint
Heme/unk follow-up of neutropenic fever, MDS
Subjective
Feels well, no fever since admission. Denies cough, chest pain, shortness of breath. Denies bleeding.
Vital Signs:
Vital Signs
Temp Pulse Resp BP Pulse Ox
97.8 F 56 14 122/49 99
04/29/24 07:10 04/29/24 07:10 04/29/24 07:10 04/29/24 07:10 04/29/24 08:01
Lab Results:
Laboratory Data
WBC 1.9 10^3/uL (4.8-10.8) L* 04/29/24 06:52
Hgb 8.5 g/dL (13.0-18.0) L D 04/29/24 06:52
Plt Count 38 10^3/uL (130-400) L 04/29/24 06:52
eGFR > 60.00 04/29/24 10:05
Physical Exam
Awake, alert, nontoxic
Heart rate and rhythm regular
Lungs clear
No petechiae, does have some bruising
Review of Systems
Review of Systems
12 point review of systems negative in detail except as per HPI
Orders
Orders
Orders From Last 24 Hours
04/29/24 12:22
Chest [CR Chest - 2 Views ] Routine
[2024-04-29 15:10] VITALS: BP 124/67
--- NOTE | 2024-04-29 17:18 | PTCARENOTE ---
Pt AAO x3, MILLER well, OOB to BR with minimal assistance; denies weakness/dizziness. VSS. On room air- pulse ox 98%, no SOB noted. Abd large, soft, saúl PO well. Voids in BR without difficulty. Rresting in bed at present, no c/o. Will continue to
monitor.
[2024-04-29 22:32] VITALS: BP 119/62
[2024-04-30 07:00] VITALS: BP 119/59
[2024-04-30 09:13] LABS: Hematocrit 26.9 % (39.0-52.0); Hemoglobin 8.3 g/dL (13.0-18.0); Mean Corp Hgb Conc. 30.9 g/dL (33.0-37.0); Mean Corpuscular Hgb 29.1 pg (27.0-31.0); Mean Corpuscular Volume 94.4 fL (80.0-94.0); Red Blood Cell Count 2.85 10^6/uL (4.70-6.10); Red Cell Dist. Width 19.5 % (11.5-14.5); White Blood Cell Count 2.5 10^3/uL (4.8-10.8)
[2024-04-30 09:14] LABS: Platelet Count 40 10^3/uL (130-400)
[2024-04-30] MEDS: STERILE WATER FOR INJECTION 10 ML IV (09:21)
[2024-04-30] MEDS: VIBRAMYCIN 260 MG IV (09:21)
[2024-04-30] MEDS: ROCEPHIN 1000 MG IV (09:21)
--- NOTE | 2024-04-30 10:37 | CM ---
Chart reviewed and plan is to home when stable, no needs.
Plan; Home with family when stable.
[2024-04-30 12:03] LABS: % Basophils 0.4 % (0-2); % Immature Granulocytes 1.3 % (0-0.5); % Lymphocytes 48.5 % (20.5-51.1); % Monocytes 4.7 % (1.7-9.3); % Neutrophils 45.1 % (42.2-75.2); Absolute Lymphocytes 1.1 10^3/uL (1.2-3.4); Absolute Monocytes 0.1 10^3/uL (0.1-0.6); Absolute Neutrophils 1.1 10^3/uL (1.4-6.5); Nucleated Red Blood Cells % 0.9 % (-)
--- NOTE | 2024-04-30 14:54 | W.PN.HOSP.TC ---
Addendum entered and electronically signed by Hiram Chacko MD 04/30/24 15:12:
DC on 5 days doxy total and 10 days ceftriaxone/cefdinir outpt
Original Note:
Today's Communication/Plan
-
� Empiric antibiotics, 5-day doxycycline, 7 days ceftriaxone/cefdinir,
- cbc 05/03 with hematology
Assessment / Plan
Assessment / Plan
68yo M with PMHx of myelodysplastic syndrome on immuno and chemo therapy and transfusion-dependent, pancreatitis, DJD came with worsening weakness, found fever in ED. Was also c/o mild cough. Started on Abx for possible pneumonia. Patient also c/o
intermittent chronic diarrhea
A/P:
#Fever, bronchiolitis�suspect viral
� Empiric antibiotics, 5-day doxycycline, 7 days ceftriaxone/cefdinir,
COVID-19 and Influenza PCR neg
Check legionella and S/pneumonia - negative
Bcx negative
no signs of UTI on UA
#Myelodysplastic syndrome with pancytopenia
follow CBC, white count slightly improved today
transfuse as needed - s/p 1 unit PRBC on 04/28/24
Hematology consult
Neutropenic precautions
Follow-up CBC on 05/03 with hematology
#Chronic diarrhea
C.diff neg, stool Cx pending
#CKD stage 3a
follow Ct
baseline 1.3-1.5
DVT ppx on SCDs
Full code
More than 30 minutes spent in discharge including
Final examination of the patient
Summarizing hospital stay
Instructions for continuing care to all relevant caregivers
Preparation of discharge records, prescriptions, and referral forms
Total time spent (35 in minutes):
Anticipated Discharge: Today
Subjective/Interval History
-
Date of Service: April 30, 2024
No acute events overnight
Objective Data
-
Labs:
Laboratory Results
04/30/24
08:17
WBC 2.5 L
Hgb 8.3 L
Hct 26.9 L
Plt Count 40 L
Vital Signs:
Vital Signs
Temp Pulse Resp BP Pulse Ox
97.5 F 62 19 119/59 98
04/30/24 07:00 04/30/24 07:00 04/30/24 07:00 04/30/24 07:00 04/30/24 07:00
I&O
04/29/24 04/30/24 05/01/24
06:59 06:59 06:59
Intake Total 490 / 490 1460 / 1460
Balance 490 / 490 1460 / 1460
Review of Systems
-
History Source: Patient
All other systems: Not reviewed unless documented
Physical Exam
-
General: No Apparent Distress
HEENT: Normocephalic
Respiratory: Clear to Auscultation
GI: Soft, Nontender and Nondistended
Musculoskeletal: No Clubbing, No Cyanosis and No Edema
Neuro: Awake, Alert, Oriented and AO x 3
Psych: Calm
Data Reviewed
-
CT Scan: Image personally visualized and interpreted and Report Reviewed by me
Labs: Labs Reviewed by me
[2024-04-30 15:00] VITALS: BP 130/63
--- NOTE | 2024-04-30 15:12 | W.DS.TRANS ---
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
-
Discharge Instructions:
Discharge Diagnosis/Procedures MDS, currently on Luspatercept alone, last
chemotherapy in July/2023
Neutropenic fever
Possible bronchiolitis
Diet Other diet
Additional Diets Neutropenic precautions
Blood Work CBC with differential on 05/03 with hematology
Others Tests Repeat chest imaging outpatient with hematology/
pulmonology
Instructions:
Stand-Alone Forms:
Changes to Home Medications: Yes
Discharge Medications:
DC Medications w/original date entered in [facility]
cefdinir 300 mg capsule 300 mg PO Q12H 6 days #12 caps 04/30/24
doxycycline hyclate 100 mg capsule 100 mg PO BID 5 days #10 caps 04/30/24
Home Medication Changes
cefdinir 300 mg capsule 300 mg PO Q12H 6 days #12 caps 04/30/24
doxycycline hyclate 100 mg capsule 100 mg PO BID 5 days #10 caps 04/30/24
Pending Results: No
== END 2024-04-30 16:53 | disposition home or self-care (01) | DRG 202 ==
LOC: 4 WEST ACU 14:37
PROVIDERS: Internal Medicine; Physician Assistant; ADMITTING PHYSICIAN Hospitalist; ATTENDING PHYSICIAN Internal Medicine; CONSULT PHYSICIAN Internal Medicine Hematology & Oncology; EMERGENCY PHYSICIAN Emergency Medicine; FAMILY PHYSICIAN Family Medicine
PROC: 30233N1 Transfusion of Nonautologous Red Blood Cells into Peripheral Vein, Percutaneous Approach (ICD-10-PCS; 2024-04-28)
DX: J21.9 Acute bronchiolitis, unspecified (principal); D84.9 Immunodeficiency, unspecified; D46.9 Myelodysplastic syndrome, unspecified; D69.6 Thrombocytopenia, unspecified; M19.90 Unspecified osteoarthritis, unspecified site; E66.9 Obesity, unspecified; Z68.31 Body mass index [BMI] 31.0-31.9, adult; N18.31 Chronic kidney disease, stage 3a; Z11.52 Encounter for screening for COVID-19
CPT/HCPCS: 71046; 71250; 80053; 81003; 83605; 83690; 84145; 85025; 86850; 86900; 86901; 86920; 87040; 87045; 87046; 87324; 87427; 87449; 87502; 87811; 87899; 89055; 96361; 96365; 97162; 97166; 99285; P9016

== ENCOUNTER → 2024-05-03 15:53 | Outpatient (REF) | payer MEDICARE, OTHER, SELFPAY ==
[2024-05-03 19:32] LABS: % Basophils 0.4 % (0-2); % Immature Granulocytes 1.2 % (0-0.5); % Lymphocytes 67.2 % (20.5-51.1); % Monocytes 3.7 % (1.7-9.3); % Neutrophils 27.5 % (42.2-75.2); Absolute Lymphocytes 1.6 10^3/uL (1.2-3.4); Absolute Monocytes 0.1 10^3/uL (0.1-0.6); Absolute Neutrophils 0.7 10^3/uL (1.4-6.5); Hematocrit 27.5 % (39.0-52.0); Hemoglobin 8.7 g/dL (13.0-18.0); Mean Corp Hgb Conc. 31.6 g/dL (33.0-37.0); Mean Corpuscular Volume 91.7 fL (80.0-94.0); Nucleated Red Blood Cells % 0.8 % (-); Platelet Count 71 10^3/uL (130-400); Red Cell Dist. Width 19.4 % (11.5-14.5); White Blood Cell Count 2.4 10^3/uL (4.8-10.8)
== END ==
LOC: REG 15:53
PROVIDERS: ATTENDING PHYSICIAN Internal Medicine Hematology & Oncology; FAMILY PHYSICIAN Family Medicine
DX: D64.9 Anemia, unspecified (principal); D46.A Refractory cytopenia with multilineage dysplasia
CPT/HCPCS: 36415; 85025

== ENCOUNTER → 2024-05-10 14:07 | Outpatient (REF) | payer MEDICARE, OTHER, SELFPAY ==
[2024-05-10 11:25] LABS: Hemoglobin 8.4 g/dL (13.0-18.0); Mean Corpuscular Hgb 29.3 pg (27.0-31.0); Mean Corpuscular Volume 97.6 fL (80.0-94.0); Platelet Count 85 10^3/uL (130-400); Red Blood Cell Count 2.87 10^6/uL (4.70-6.10); Red Cell Dist. Width 19.7 % (11.5-14.5); White Blood Cell Count 2.1 10^3/uL (4.8-10.8)
[2024-05-10 12:07] LABS: % Immature Granulocytes 2.8 % (0-0.5); % Monocytes 3.3 % (1.7-9.3); % Neutrophils 30.9 % (42.2-75.2); Absolute Immature Granulocytes 0.1 10^3/uL (0-0.05); Absolute Lymphocytes 1.3 10^3/uL (1.2-3.4); Absolute Monocytes 0.1 10^3/uL (0.1-0.6); Absolute Neutrophils 0.7 10^3/uL (1.4-6.5); Nucleated Red Blood Cells % 1.4 % (-)
== END ==
LOC: OIDL 14:07
PROVIDERS: ATTENDING PHYSICIAN Internal Medicine Hematology & Oncology
DX: D64.9 Anemia, unspecified (principal)
CPT/HCPCS: 85025

== ENCOUNTER → 2024-05-31 09:56 | Outpatient (REF) | payer MEDICARE, OTHER, SELFPAY ==
[2024-05-31 10:27] LABS: % Lymphocytes 46.6 % (20.5-51.1); % Monocytes 4.4 % (1.7-9.3); Absolute Monocytes 0.1 10^3/uL (0.1-0.6); Mean Corp Hgb Conc. 30.9 g/dL (33.0-37.0); Mean Corpuscular Hgb 29.4 pg (27.0-31.0); Mean Corpuscular Volume 95.2 fL (80.0-94.0); Platelet Count 91 10^3/uL (130-400); Red Blood Cell Count 2.31 10^6/uL (4.70-6.10); Red Cell Dist. Width 20.6 % (11.5-14.5); White Blood Cell Count 2.1 10^3/uL (4.8-10.8)
[2024-05-31 10:31] LABS: Hemoglobin 6.8 g/dL (13.0-18.0)
== END ==
LOC: OIDL 09:56
PROVIDERS: ATTENDING PHYSICIAN Internal Medicine Hematology & Oncology; FAMILY PHYSICIAN Family Medicine
DX: D64.9 Anemia, unspecified (principal)
CPT/HCPCS: 36415; 85025

== ENCOUNTER → 2024-06-21 10:12 | Outpatient (REF) | payer MEDICARE, OTHER, SELFPAY ==
[2024-06-21 11:14] LABS: % Immature Granulocytes 0.5 % (0-0.5); % Lymphocytes 58.6 % (20.5-51.1); % Monocytes 3.4 % (1.7-9.3); % Neutrophils 37.5 % (42.2-75.2); Absolute Lymphocytes 1.2 10^3/uL (1.2-3.4); Absolute Monocytes 0.1 10^3/uL (0.1-0.6); Absolute Neutrophils 0.8 10^3/uL (1.4-6.5); Hematocrit 23.4 % (39.0-52.0); Hemoglobin 7.4 g/dL (13.0-18.0); Mean Corp Hgb Conc. 31.6 g/dL (33.0-37.0); Mean Corpuscular Hgb 29.4 pg (27.0-31.0); Mean Corpuscular Volume 92.9 fL (80.0-94.0); Nucleated Red Blood Cells % 0 % (-); Platelet Count 88 10^3/uL (130-400); Red Blood Cell Count 2.52 10^6/uL (4.70-6.10); Red Cell Dist. Width 19.2 % (11.5-14.5)
== END ==
LOC: REG 10:12
PROVIDERS: ATTENDING PHYSICIAN Internal Medicine Hematology & Oncology; FAMILY PHYSICIAN Family Medicine
DX: D64.9 Anemia, unspecified (principal); D46.A Refractory cytopenia with multilineage dysplasia
CPT/HCPCS: 36415; 85025

== ENCOUNTER 2024-06-22 09:11 | Outpatient (RCR) | payer MEDICARE, OTHER, SELFPAY ==
[2024-06-01 09:02] VITALS: BP 117/60
[2024-06-01 09:21] VITALS: BP 112/60
[2024-06-01 11:41] VITALS: BP 114/57
[2024-06-01 12:07] VITALS: BP 114/57
[2024-06-01 12:25] VITALS: BP 114/62
[2024-06-01 14:12] VITALS: BP 125/66
[2024-06-21 16:25] LABS: LDH 224 U/L (120-246); Reticulocyte Count 1.8 % (0.4-2.8)
[2024-06-21 17:32] LABS: Folate > 20.0 ng/ml (2.76-20)
[2024-06-21 17:38] LABS: Erythrocyte Sed Rate 73 mm/hour (0-20)
[2024-06-22] VITALS (8 sets, daily range): BP systolic 95–125; BP diastolic 52–64
[2024-06-24 08:19] LABS: Haptoglobin 107 mg/dL (30-200)
== END 2024-06-29 23:59 | disposition home or self-care (01) ==
LOC: OID 09:11
PROVIDERS: ATTENDING PHYSICIAN Internal Medicine Hematology & Oncology
DX: D46.9 Myelodysplastic syndrome, unspecified (principal); D64.9 Anemia, unspecified
CPT/HCPCS: 36430; 82746; 83010; 83615; 85045; 85652; 86850; 86880; 86900; 86901; 86920; P9016

== ENCOUNTER 2024-07-13 09:22 | Outpatient (RCR) | payer MEDICARE, OTHER, SELFPAY ==
[2024-07-12 10:58] LABS: % Basophils 1.7 % (0-2); % Immature Granulocytes 0.4 % (0-0.5); % Lymphocytes 49.8 % (20.5-51.1); % Monocytes 2.6 % (1.7-9.3); % Neutrophils 45.5 % (42.2-75.2); Absolute Lymphocytes 1.2 10^3/uL (1.2-3.4); Absolute Monocytes 0.1 10^3/uL (0.1-0.6); Absolute Neutrophils 1.1 10^3/uL (1.4-6.5); Hematocrit 24.3 % (39.0-52.0); Mean Corp Hgb Conc. 31.7 g/dL (33.0-37.0); Mean Corpuscular Hgb 29.5 pg (27.0-31.0); Mean Corpuscular Volume 93.1 fL (80.0-94.0); Mean Platelet Volume 11.7 fL (7.4-10.4); Platelet Count 86 10^3/uL (130-400); Red Blood Cell Count 2.61 10^6/uL (4.70-6.10); Red Cell Dist. Width 18.1 % (11.5-14.5)
[2024-07-12 11:21] LABS: White Blood Cell Count 2.3 10^3/uL (4.8-10.8)
[2024-07-12 11:22] LABS: Hemoglobin 7.7 g/dL (13.0-18.0)
[2024-07-13] VITALS (7 sets, daily range): BP systolic 102–114; BP diastolic 56–59
== END 2024-07-27 23:59 | disposition home or self-care (01) ==
LOC: OID 09:22
PROVIDERS: ATTENDING PHYSICIAN Internal Medicine Hematology & Oncology
DX: D46.9 Myelodysplastic syndrome, unspecified (principal); D64.9 Anemia, unspecified
CPT/HCPCS: 36430; 85025; 86850; 86900; 86901; 86920; P9016

== ENCOUNTER 2024-08-24 08:08 | Outpatient (RCR) | payer MEDICARE, OTHER, SELFPAY ==
[2024-08-02 12:27] LABS: Band Neutrophils 0 % (0-3); Hematocrit 20.5 % (39.0-52.0); Hemoglobin 6.7 g/dL (13.0-18.0); Mean Corp Hgb Conc. 32.7 g/dL (33.0-37.0); Mean Corpuscular Volume 91.9 fL (80.0-94.0); Platelet Count 97 10^3/uL (130-400); Red Blood Cell Count 2.23 10^6/uL (4.70-6.10); Red Cell Dist. Width 17.1 % (11.5-14.5); Segmented Neutrophils 24 % (42-75); White Blood Cell Count 1.9 10^3/uL (4.8-10.8)
[2024-08-02 12:28] LABS: Absolute Neutrophils -Man Diff 0.4 10^3/uL (1.4-6.5); Anisocytosis 1+; Hypochromasia 1+; Lymphocytes 73 % (20-51); Monocytes 3 % (2-9); Normal RBC Morphology No; Ovalocytes Slight; Platelets Checked Yes; Polychromasia 1+; Total Cells Counted 100
[2024-08-03] VITALS (7 sets, daily range): BP systolic 102–133; BP diastolic 61–66
[2024-08-23 11:02] LABS: % Basophils 1.6 % (0-2); % Immature Granulocytes 2.8 % (0-0.5); % Lymphocytes 59.1 % (20.5-51.1); % Monocytes 3.6 % (1.7-9.3); % Neutrophils 32.9 % (42.2-75.2); Absolute Immature Granulocytes 0.1 10^3/uL (0-0.05); Absolute Lymphocytes 1.5 10^3/uL (1.2-3.4); Absolute Monocytes 0.1 10^3/uL (0.1-0.6); Mean Corp Hgb Conc. 32.7 g/dL (33.0-37.0); Mean Corpuscular Volume 91.6 fL (80.0-94.0); Mean Platelet Volume 13.2 fL (7.4-10.4); Platelet Count 118 10^3/uL (130-400); Red Blood Cell Count 2.27 10^6/uL (4.70-6.10); Red Cell Dist. Width 15.4 % (11.5-14.5); White Blood Cell Count 2.5 10^3/uL (4.8-10.8)
[2024-08-23 11:04] LABS: Hemoglobin 6.8 g/dL (13.0-18.0)
[2024-08-23 11:05] LABS: Hematocrit 20.8 % (39.0-52.0)
[2024-08-23 11:06] LABS: Absolute Neutrophils 0.8 10^3/uL (1.4-6.5)
[2024-08-24] VITALS (7 sets, daily range): BP systolic 99–155; BP diastolic 52–70
== END 2024-08-27 23:59 | disposition home or self-care (01) ==
LOC: OID 08:08
PROVIDERS: ATTENDING PHYSICIAN Internal Medicine Hematology & Oncology
DX: D46.9 Myelodysplastic syndrome, unspecified (principal); D64.9 Anemia, unspecified
CPT/HCPCS: 36415; 36430; 85025; 86850; 86900; 86901; 86920; P9016

== ENCOUNTER 2024-09-13 10:30 | Emergency (ER) | payer MEDICARE, OTHER, SELFPAY ==
[2024-09-13] VITALS (19 sets, daily range): BP systolic 82–142; BP diastolic 51–76
--- NOTE | 2024-09-13 11:07 | ED.GENMED ---
History of Present Illness
General
Chief Complaint: Abnormal Lab Value
Source: patient
Time Seen by Provider: 09/13/24 11:00
History of Present Illness
History of Present Illness:
68-year-old male presents to the emergency room due to shortness of breath. Patient was on his way to his oncology appointment with Dr. Aguilar and was walking in the parking lot to the office when he had to stop to catch his breath. Patient has
myelodysplastic syndrome and has been requiring intermittent blood transfusions. The reason for his visit today is that he was feeling weak and short of breath indicating he would need another transfusion. Patient states he feels essentially the
same way he does every time he needs a transfusion but people in the parking lot observed him being short of breath and insisted he come to the emergency room to get evaluated. Patient does admit he had a bit of a cough recently but otherwise feels
the way he does when he needs a transfusion. He denies any fever, chills, nausea or vomiting.
Past History
Past History
ED Past Medical History: Asthma and Other (Myelodysplastic syndrome)
ED Past Surgical History: Cholecystectomy
Social History
Tobacco: Non-smoker
Alcohol: None
Drug: None
Personal:
Living: with family
Phy Exam
Physical Exam
Physical Exam:
General: Awake, Alert, Oriented X3. No acute distress. Appears pale and chronically ill
Vitals: unremarkable
Head: Atraumatic
Eyes: Pupils equal, EOMI
Throat: Airway intact, no exudates
Neck: Trachea midline
Lungs: Clear and equal b/l
Heart: Regular rate, no murmurs
Abd: Soft, Nontender, No pulsatile mass
Neuro: Nonfocal
Skin: Warm, dry, no rash
Extremities: pulses equal b/l, 1+ edema
Course
Orders/Labs/Results
Orders:
Orders
09/13/24 10:44
Cardiac Monitoring- Treatment ONCE
09/13/24 10:51
Type+Screen Urgent
Complete Blood Count/With Diff Urgent
Comprehensive Metabolic Panel Urgent
Manual Differential Urgent
09/13/24 11:30
Blood Bank Products [* Blood Bank Products] Urgent
Blood Bank Products: *Packed RBC Leuko(PRBC's)
Quantity: 2
Transfuse Today: Yes
Reason: Anemia
Abnormal Lab Results
09/13/24
10:51
WBC 1.8 L* 10^3/uL
(4.8-10.8)
RBC 1.90 L 10^6/uL
(4.70-6.10)
Hgb 5.4 L* g/dL
(13.0-18.0)
Hct 16.2 L* %
(39.0-52.0)
RDW 18.0 H %
(11.5-14.5)
Plt Count 93 L 10^3/uL
(130-400)
MPV 13.1 H fL
(7.4-10.4)
Abs Neuts (Manual) 0.9 L* 10^3/uL
(1.4-6.5)
Chloride 108 H mmol/L
(98-107)
BUN 25 H mg/dl
(9-20)
Creatinine 1.4 H mg/dL
(0.7-1.3)
Glucose 170 H mg/dl
(70-99)
AST 15 L U/L
(17-59)
Total Protein 6.0 L g/dl
(6.3-8.2)
Albumin 3.4 L g/dl
(3.5-5.0)
Crossmatch IS Only See Detail
09/13/24 10:51
09/13/24 10:51
Vital Signs
Initial and Last Documented VS:
Initial Vital Signs
Pulse Resp BP
83 15 82/66
09/13/24 10:36 09/13/24 10:36 09/13/24 10:36
Last Documented Vital Signs
Temp Pulse Resp BP Pulse Ox
98.7 F 73 13 142/76 100
09/13/24 16:41 09/13/24 16:41 09/13/24 16:41 09/13/24 16:41 09/13/24 16:41
MDM/Problems Addressed
Differential Diagnosis Includes:
Symptomatic anemia, dehydration, electrolyte abnormality, dysrhythmia
MDM/Problems Addressed:
Patient is significantly anemic. He anticipated this. This is consistent with his known myelodysplastic syndrome. Will transfuse 2 units of blood. If he is feeling better patient can be discharged home.
*Pulse Oximetry
Patient hypoxic: no
*Critical Care Note
Total Time (30-74mins, 75-104mins- exclusive of procedures): Not Applicable
ED Attending Note
-
Portions of this chart may have been created with voice recognition software.� Occasional wrong word or��sound alike� substitutions may have occurred due to the inherent limitations of voice recognition software.
Discharge Plan
Departure
Patient Disposition: Home (Routine Discharge)
Date of Disposition: 09/13/24
Time of Disposition: 16:45
Patient with high blood pressure during this ER visit?: No
Condition: Good
Covid-19: Not Applicable
Discharge Problem:
Myelodysplastic syndrome, Symptomatic anemia
Instructions: Normocytic Normochromic Anemia (DC)
Prescriptions:
No Action
No Current Medications
0
Referrals:
Meliton Gay MD [Family Provider] -
Interventions
Interventions:
*Risk Screen - Suicide Last Done: 09/13/24 15:07
*General Assessment Last Done: 09/13/24 10:38
*Neglect/Abuse Screening Last Done: 09/13/24 10:38
*ED- Fall Risk Assessment Last Done: 09/13/24 10:43
*ED COVID-19 Vaccine History Last Done: 09/13/24 10:43
*Nursing Disposition Last Done: 09/13/24 16:50
Discharge Date and Time
Discharge Date/Time: 09/13/24 16:50
Print Language: LIBYAN
[2024-09-13 11:17] LABS: Absolute Neutrophils -Man Diff 0.9 10^3/uL (1.4-6.5); Anisocytosis 1+; Band Neutrophils 0 % (0-3); Hematocrit 16.2 % (39.0-52.0); Hemoglobin 5.4 g/dL (13.0-18.0); Lymphocytes 45 % (20-51); Mean Corp Hgb Conc. 33.3 g/dL (33.0-37.0); Mean Corpuscular Hgb 28.4 pg (27.0-31.0); Mean Corpuscular Volume 85.3 fL (80.0-94.0); Mean Platelet Volume 13.1 fL (7.4-10.4); Monocytes 3 % (2-9); Normal RBC Morphology No; Platelet Count 93 10^3/uL (130-400); Platelets Checked Yes; Segmented Neutrophils 52 % (42-75); White Blood Cell Count 1.8 10^3/uL (4.8-10.8)
[2024-09-13 11:18] LABS: Hypochromasia 1+; Ovalocytes 1+
[2024-09-13 11:19] LABS: Total Cells Counted 100
[2024-09-13 11:27] LABS: ALT (SGPT) 20 U/L (0-50); AST (SGOT) 15 U/L (17-59); Albumin 3.4 g/dl (3.5-5.0); Alkaline Phosphatase 69 U/L (38-126); Blood Urea Nitrogen 25 mg/dl (9-20); Calcium 8.7 mg/dl (8.4-10.2); Carbon Dioxide 25 mmol/L (22-30); Chloride 108 mmol/L (98-107); Glucose 170 mg/dl (70-99); Potassium 4.4 mmol/L (3.5-5.1); Sodium 140 mmol/L (135-145); Total Bilirubin 0.5 mg/dl (0.2-1.3); eGFR 54.07
--- NOTE | 2024-09-13 12:46 | EDRN ---
Patient has no signs of transfusion reaction after 15 minute in room observation. patient aware of reaction symptoms and states he will call if he experiences any changes. patient is calm and comfortable. denies any needs
== END 2024-09-13 16:50 | disposition home or self-care (01) ==
LOC: EMR 10:30
PROVIDERS: EMERGENCY PHYSICIAN Emergency Medicine; FAMILY PHYSICIAN Family Medicine
DX: R06.02 Shortness of breath (principal); R53.1 Weakness; R05.9 Cough, unspecified; D46.9 Myelodysplastic syndrome, unspecified; D64.9 Anemia, unspecified; J45.909 Unspecified asthma, uncomplicated; Z90.49 Acquired absence of other specified parts of digestive tract; Z88.8 Allergy status to other drugs, medicaments and biological substances
CPT/HCPCS: 99285; 36430; 80053; 85025; 86850; 86900; 86901; 86920; P9016

== ENCOUNTER 2024-09-20 10:20 | Outpatient (RCR) | payer MEDICARE, OTHER, SELFPAY ==
[2024-09-20 11:39] LABS: % Immature Granulocytes 2.3 % (0-0.5); % Lymphocytes 42.3 % (20.5-51.1); % Monocytes 3.2 % (1.7-9.3); % Neutrophils 52.2 % (42.2-75.2); Absolute Immature Granulocytes 0.1 10^3/uL (0-0.05); Absolute Lymphocytes 0.9 10^3/uL (1.2-3.4); Absolute Monocytes 0.1 10^3/uL (0.1-0.6); Absolute Neutrophils 1.2 10^3/uL (1.4-6.5); Hematocrit 23.9 % (39.0-52.0); Mean Corp Hgb Conc. 33.5 g/dL (33.0-37.0); Mean Corpuscular Hgb 29.1 pg (27.0-31.0); Mean Corpuscular Volume 86.9 fL (80.0-94.0); Mean Platelet Volume 12.8 fL (7.4-10.4); Nucleated Red Blood Cells % 0 % (-); Platelet Count 96 10^3/uL (130-400); Red Blood Cell Count 2.75 10^6/uL (4.70-6.10); Red Cell Dist. Width 17.4 % (11.5-14.5); White Blood Cell Count 2.2 10^3/uL (4.8-10.8)
== END 2024-09-26 23:59 | disposition home or self-care (01) ==
LOC: OID 10:20
PROVIDERS: ATTENDING PHYSICIAN Internal Medicine Hematology & Oncology; FAMILY PHYSICIAN Family Medicine
DX: D46.9 Myelodysplastic syndrome, unspecified (principal); D64.9 Anemia, unspecified
CPT/HCPCS: 36415; 85025

== ENCOUNTER 2024-10-15 15:03 | Inpatient (IN) | payer MEDICARE, OTHER, SELFPAY ==
[2024-10-15] VITALS (13 sets, daily range): BP systolic 92–141; BP diastolic 48–72; BMI 33.9; BMI 34.2
--- NOTE | 2024-10-15 11:47 | ED.GENMED ---
History of Present Illness
General
Chief Complaint: Weakness
Time Seen by Provider: 10/15/24 11:14
History of Present Illness
History of Present Illness:
68-year-old male with history of myelodysplasia presents to the emergency department for evaluation of general fatigue and weakness. He states that he typically receives routine outpatient infusions for his MDS however did not receive 1 after his
last oncology visit. Has been feeling weak and fatigued since that time. Denies any black or bloody stools. Did have a minor fall several days ago but denies any injuries or pain from that
Past History
Past History
ED Past Medical History: Asthma and Other (Myelodysplastic syndrome)
ED Past Surgical History: Cholecystectomy
Social History
Tobacco: Non-smoker
Alcohol: None
Drug: None
Personal:
Living: with family
Review of Systems
Review of Systems
Allergies reviewed?: Yes
All Other Systems: ROS reviewed and negative except as documented in HPI and ROS
Phy Exam
Physical Exam
Physical Exam:
GEN: Generally pale but overall well-appearing in no distress
HEENT: Oral mucosa moist, no scleral icterus
Cardiac: Regular rate and rhythm
Lung: No respiratory distress, no tachypnea
MSK: No gross deformity or injuries
Skin: Good color, no pallor or jaundice, no rashes
Neuro: AO x3, moves all extremities freely
Psych: Calm, cooperative
Course
Orders/Labs/Results
Orders:
Orders
10/15/24 13:09
Type+Screen Urgent
Basic Metabolic Panel Urgent
Complete Blood Count/With Diff Urgent
10/15/24 13:31
Blood Bank Products [* Blood Bank Products] Urgent
Blood Bank Products: *Packed RBC Leuko(PRBC's)
Quantity: 2
Transfuse Today: Yes
Reason: Anemia
Abnormal Lab Results
10/15/24
13:09
WBC 1.8 L* 10^3/uL
(4.8-10.8)
RBC 1.20 L 10^6/uL
(4.70-6.10)
Hgb 3.6 L* g/dL
(13.0-18.0)
Hct 10.7 L* %
(39.0-52.0)
RDW 19.7 H %
(11.5-14.5)
Plt Count 87 L 10^3/uL
(130-400)
MPV 13.0 H fL
(7.4-10.4)
Chloride 112 H mmol/L
(98-107)
BUN 29 H mg/dl
(9-20)
Crossmatch IS Only See Detail
10/15/24 13:09
10/15/24 13:09
Vital Signs
Initial and Last Documented VS:
Initial Vital Signs
Temp Pulse BP
98.3 F 87 123/65
10/15/24 10:03 10/15/24 10:03 10/15/24 10:03
Last Documented Vital Signs
Temp Pulse BP Pulse Ox
98.3 F 86 123/65 100
10/15/24 10:03 10/15/24 10:06 10/15/24 10:03 10/15/24 10:06
MDM/Problems Addressed
MDM/Problems Addressed:
Anemia is most likely on the basis of his known myelodysplasia and recent missed blood transfusion, will admit due to severe anemia as he will likely require in excess of 3-4 transfusions to achieve a suitable hemoglobin prior to discharge
*Critical Care Note
Total Time (30-74mins, 75-104mins- exclusive of procedures): Not Applicable
ED Attending Note
-
Portions of this chart may have been created with voice recognition software.� Occasional wrong word or��sound alike� substitutions may have occurred due to the inherent limitations of voice recognition software.
Discharge Plan
Departure
Patient Disposition: Admit
Date of Disposition: 10/15/24
Time of Disposition: 14:26
Admit to: Med/Surg
Presentation/result/management discussed w/ accepting MD/DO: Hospitalist
Discharge Problem:
Symptomatic anemia, Myelodysplastic syndrome
Prescriptions:
No Action
No Current Medications
0
Referrals:
Meliton Gay MD [Family Provider] -
Interventions
Interventions:
*Risk Screen - Suicide Last Done: 10/15/24 12:48
*General Assessment Last Done: 10/15/24 12:48
*Neglect/Abuse Screening Last Done: 10/15/24 12:48
*ED- Fall Risk Assessment Last Done: 10/15/24 12:48
*ED COVID-19 Vaccine History Last Done: 10/15/24 12:48
Discharge Date and Time
Print Language: YORUBA
[2024-10-15 13:22] LABS: Hematocrit 10.7 % (39.0-52.0); Hemoglobin 3.6 g/dL (13.0-18.0); Mean Corp Hgb Conc. 33.6 g/dL (33.0-37.0); Mean Corpuscular Volume 89.2 fL (80.0-94.0); Platelet Count 87 10^3/uL (130-400); Red Cell Dist. Width 19.7 % (11.5-14.5); White Blood Cell Count 1.8 10^3/uL (4.8-10.8)
[2024-10-15 13:40] LABS: Blood Urea Nitrogen 29 mg/dl (9-20); Calcium 8.7 mg/dl (8.4-10.2); Carbon Dioxide 25 mmol/L (22-30); Chloride 112 mmol/L (98-107); Estimated Creatinine Clearance 59 ml/min; Glucose 96 mg/dl (70-99); Sodium 142 mmol/L (135-145)
--- NOTE | 2024-10-15 14:43 | HPS.HSE ---
Family Physician
-
Family Physician: Meliton Gay
Chief Complaint
-
fatigue
History of Present Illness
68-year-old male past medical history of myelodysplastic syndrome presenting with generalized fatigue and weakness. Feels dizzy. No chest pain. He usually receives blood transfusion for anemia secondary to MDS however did not receive 1 after last
oncology visit. Denies any black or bloody stool. Had a minor today but denies any injury.
Denies any fevers or symptoms of infection such as cough, nausea vomiting or diarrhea or sore throat or runny nose or urinary symptoms.
Denies smoking or alcohol use.
Medical History
Past Medical History
Past Medical History: Reports Other ( myelodysplastic syndrome)
Past Surgical History: Reports Other
Social History
Tobacco: Non-smoker
Alcohol: None
Drug: None
Family History
Family History: Not pertinent
Allergies / Home Medications
Allergies reflects when Allergies were last updated in [facility].
Home Medications with original date entered in [facility]
Allergy/Medication List:
Allergies
Allergy/AdvReac Type Severity Reaction Status Date / Time
Horse/Equine Containing Allergy 'years Verified 10/15/24 10:05
Products ago,
unsure of
reaction'
Home Medications
No Meds [No Current Medications] 06/01/24
Review of Systems
-
History Source: Patient
A 12 point ROS was completed and negative except as noted: Yes
Constitutional: Reports No Symptoms
EENT: Reports No Symptoms
Respiratory: Reports No Symptoms
Cardiac: Reports No Symptoms
Abdomen/GI: Reports No Symptoms
: Reports No Symptoms
Musculoskeletal: Reports No Symptoms
Skin: Reports No Symptoms
Neurological: Reports No Symptoms
Endocrine: Reports No Symptoms
Hematologic/Lymphatic: Reports No Symptoms
Psych: Reports No Symptoms
Physical Exam
Vital Signs
Vital Signs
Temp Pulse Resp BP Pulse Ox
98.3 F 90 15 101/72 98
10/15/24 10:03 10/15/24 14:30 10/15/24 14:30 10/15/24 12:00 10/15/24 12:30
Physical Exam
General: Well Developed, Well Nourished and No Apparent Distress
HEENT: NormoCephalic, Moist mucous membranes and Atraumatic
Respiratory: Clear
Cardiac: S1/S2 and Regular Rhythm; No Murmur or Rub
GI: Soft, Non Tender, Non Distended and Normal Bowel Sounds; No Organomegaly
Rectal: Deferred by Provider
Musculoskeletal: No Clubbing, No Cyanosis and No Edema
Skin: No Rash
Neuro: Nonfocal/grossly intact
Laboratory Results
-
10/15/24 13:09
10/15/24 13:09
Laboratory Results
Total Bilirubin Cancelled 10/15/24 13:09
AST Cancelled 10/15/24 13:09
ALT Cancelled 10/15/24 13:09
Alkaline Phosphatase Cancelled 10/15/24 13:09
Data Reviewed
-
Lab Data: Labs Reviewed by me
Old Records: Reviewed
Impression/Plan
-
IMPRESSION:
PLAN:
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
-Hemoglobin of 3.6
- 2 units of blood ordered, will likely require 2 more
Myelodysplastic syndrome,
- Receives transfusions every 3 weeks usually
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
- Stable
Chronic thrombocytopenia secondary to MDS
-Stable
CKD 3A
- Renal function stable
History of pancreatitis
Osteoarthritis
Obesity
Full code
DVT prophylaxis�SCDs
Regular diet
[2024-10-15 14:52] LABS: Atypical Lymphocytes 3 %; Band Neutrophils 3 % (0-3); Eosinophils 1 % (0-6); Lymphocytes 70 % (20-51); Monocytes 6 % (2-9); Segmented Neutrophils 17 % (42-75)
[2024-10-15 14:53] LABS: Hypochromasia Slight; Normal RBC Morphology No; Platelets Checked YES
[2024-10-15 14:54] LABS: Total Cells Counted 100
[2024-10-15 14:58] LABS: Absolute Neutrophils -Man Diff 0.3 10^3/uL (1.4-6.5)
--- NOTE | 2024-10-15 17:27 | PTCARENOTE ---
pt arrived to unit at 1615 via stretcher from the ED, 1 unit of PRBC running via gravity. pt stand and pivot to bed with standby assist, pt denied lightheadedness/dizziness at that time. VSS. pt admissions and assessment completed by this nurse. 1st
unit of PRBC completed, 2nd unit started by this nurse, pt tolerating well. pt oriented to unit.
[2024-10-16] VITALS (11 sets, daily range): BP systolic 94–126; BP diastolic 38–64
[2024-10-16 08:03] LABS: Hematocrit 16.7 % (39.0-52.0); Hemoglobin 5.9 g/dL (13.0-18.0); Mean Corp Hgb Conc. 35.3 g/dL (33.0-37.0); Mean Corpuscular Hgb 31.2 pg (27.0-31.0); Mean Corpuscular Volume 88.4 fL (80.0-94.0); Mean Platelet Volume 14.1 fL (7.4-10.4); Platelet Count 79 10^3/uL (130-400); Red Blood Cell Count 1.89 10^6/uL (4.70-6.10); Red Cell Dist. Width 16.3 % (11.5-14.5); White Blood Cell Count 1.8 10^3/uL (4.8-10.8)
[2024-10-16 08:05] LABS: ALT (SGPT) 15 U/L (0-50); AST (SGOT) 13 U/L (17-59); Albumin 3.4 g/dl (3.5-5.0); Alkaline Phosphatase 62 U/L (38-126); Blood Urea Nitrogen 27 mg/dl (9-20); Calcium 8.5 mg/dl (8.4-10.2); Carbon Dioxide 25 mmol/L (22-30); Chloride 113 mmol/L (98-107); Estimated Creatinine Clearance 59 ml/min; Glucose 102 mg/dl (70-99); Potassium 4.4 mmol/L (3.5-5.1); Sodium 141 mmol/L (135-145); Total Bilirubin 0.9 mg/dl (0.2-1.3); Total Protein 6.1 g/dl (6.3-8.2)
[2024-10-16 08:29] LABS: % Lymphocytes 56.6 % (20.5-51.1); % Monocytes 5.5 % (1.7-9.3); % Neutrophils 37.9 % (42.2-75.2); Absolute Monocytes 0.1 10^3/uL (0.1-0.6); Absolute Neutrophils 0.7 10^3/uL (1.4-6.5); Nucleated Red Blood Cells % 0 % (-)
--- NOTE | 2024-10-16 08:29 | W.PN.HOSP.TC ---
Today's Communication/Plan
-
Transfuse 2 more units of packed red blood cells today
Assessment / Plan
Assessment / Plan
HPI: 68-year-old male past medical history of myelodysplastic syndrome presenting with generalized fatigue and weakness. Feels dizzy. No chest pain. He usually receives blood transfusion for anemia secondary to MDS however did not receive 1 after
last oncology visit. Denies any black or bloody stool. Had a minor today but denies any injury.
Denies any fevers or symptoms of infection such as cough, nausea vomiting or diarrhea or sore throat or runny nose or urinary symptoms.
Denies smoking or alcohol use.
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
Follows with Dr. Aguilar at [facility]
Hemoglobin improved to 5.9, from 3.6 status post 2 units packed red blood cells 10/15
Transfuse an additional 2 units today, recheck hemoglobin tomorrow
Myelodysplastic syndrome,
- Receives transfusions every [address] Aguilar at [facility]
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
- Stable
Chronic thrombocytopenia secondary to MDS
-Stable
CKD 3A
- Renal function stable
Obesity due to excess calories
� Affects all aspects of care
History of pancreatitis
Osteoarthritis
DVT prophylaxis�SCDs secondary to thrombocytopenia
Full code
Total time spent to see the patient on the floor, examine the patient, review data and lab results, discuss treatment plan with patient, nursing staff around 35 minutes.
Physical Exam
General: Obese, no acute distress
HEENT: Normocephalic, Atraumatic, EOMI, MMM
Respiratory: Clear to Auscultation bilaterally
Cardiac: Normal S1/S2, Regular Rate and Rhythm
GI: Soft, Nontender, Nondistended, Normal Bowel Sounds
Extremities: No Clubbing, Cyanosis, or Edema
Neuro: Nonfocal/Grossly Intact
Psych: Calm, Cooperative
Derm: Pale
Anticipated Discharge: Within 24 hours
Subjective/Interval History
-
Date of Service: October 16, 2024
Patient reports his weakness has improved. Denies chest pain, denies shortness of breath. No fever, no vomiting.
Objective Data
-
Labs:
Laboratory Results
10/16/24
07:15
WBC 1.8 L*
Hgb 5.9 L* D
Hct 16.7 L*
Plt Count 79 L
Sodium 141
Potassium 4.4
Chloride 113 H
Carbon Dioxide 25
BUN 27 H
Creatinine 1.3
Glucose 102 H
Calcium 8.5
Total Bilirubin 0.9
AST 13 L
ALT 15
Alkaline Phosphatase 62
Vital Signs:
Vital Signs
Temp Pulse Resp BP Pulse Ox
97.9 F 70 16 115/61 100
10/16/24 08:08 10/16/24 08:08 10/16/24 08:08 10/16/24 08:08 10/16/24 08:08
I&O
10/15/24 10/16/24 10/17/24
06:59 06:59 06:59
Intake Total 980 / 980
Balance 980 / 980
--- NOTE | 2024-10-16 14:04 | CM ---
Patient seen at bedside.
Dx: anemia
stated weak & fell
history of myelodysplastic syndrome
transfused today - states usually gets transfused every 3 weeks
IA completed - explained role of CM
Lives with daughter & in 2 story home, 5 steps to enter, flight to bedroom
PLOF: independent, does not use assistive device
Denies DME
Denies VN/Rehab
Denies insecurities
PCP: Meliton Gay
Pharmacy: [facility]
PLAN: home, no needs anticipated, when medically stable
[2024-10-16 22:56] LABS: Hematocrit 22.7 % (39.0-52.0); Hemoglobin 8.1 g/dL (13.0-18.0)
--- NOTE | 2024-10-17 00:05 | PTCARENOTE ---
Oral care was not performed on patient because they stated it was their preference to brush their teeth in the morning.
[2024-10-17 03:00] VITALS: BP 104/49
[2024-10-17 07:15] VITALS: BP 111/53
[2024-10-17 08:15] LABS: Hematocrit 24.8 % (39.0-52.0); Hemoglobin 8.6 g/dL (13.0-18.0); Mean Corp Hgb Conc. 34.7 g/dL (33.0-37.0); Mean Corpuscular Hgb 30.8 pg (27.0-31.0); Mean Corpuscular Volume 88.9 fL (80.0-94.0); Mean Platelet Volume 13.3 fL (7.4-10.4); Platelet Count 70 10^3/uL (130-400); Red Blood Cell Count 2.79 10^6/uL (4.70-6.10); Red Cell Dist. Width 15.3 % (11.5-14.5); White Blood Cell Count 2.2 10^3/uL (4.8-10.8)
[2024-10-17 08:42] LABS: Blood Urea Nitrogen 27 mg/dl (9-20); Calcium 8.4 mg/dl (8.4-10.2); Carbon Dioxide 22 mmol/L (22-30); Chloride 113 mmol/L (98-107); Estimated Creatinine Clearance 59 ml/min; Glucose 98 mg/dl (70-99); Potassium 4.4 mmol/L (3.5-5.1); Sodium 141 mmol/L (135-145)
--- NOTE | 2024-10-17 08:45 | W.PN.HOSP.TC ---
Today's Communication/Plan
-
Discharge today
Assessment / Plan
Assessment / Plan
HPI: 68-year-old male past medical history of myelodysplastic syndrome presenting with generalized fatigue and weakness. Feels dizzy. No chest pain. He usually receives blood transfusion for anemia secondary to MDS however did not receive 1 after
last oncology visit. Denies any black or bloody stool. Had a minor today but denies any injury.
Denies any fevers or symptoms of infection such as cough, nausea vomiting or diarrhea or sore throat or runny nose or urinary symptoms.
Denies smoking or alcohol use.
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
Follows with Dr. Aguilar at [place]
Hemoglobin improved to 8.6, from 3.6 upon admission status post 4 units packed red blood cells since admission
Patient reports feeling better, he is medically stable for discharge
Follow-up with PCP and calliope player in the office in 1 week
Myelodysplastic syndrome,
- Receives transfusions every [address] Aguilar at [place]
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
- Stable
Chronic thrombocytopenia secondary to MDS
-Stable
CKD 3A
- Renal function stable
Obesity due to excess calories
� Affects all aspects of care
History of pancreatitis
Osteoarthritis
DVT prophylaxis�SCDs secondary to thrombocytopenia
Full code
Physical Exam
General: Obese, no acute distress
HEENT: Normocephalic, Atraumatic, EOMI, MMM
Respiratory: Clear to Auscultation bilaterally
Cardiac: Normal S1/S2, Regular Rate and Rhythm
GI: Soft, Nontender, Nondistended, Normal Bowel Sounds
Extremities: No Clubbing, Cyanosis, or Edema
Neuro: Nonfocal/Grossly Intact
Psych: Calm, Cooperative
Derm: Pale
Anticipated Discharge: Today
Subjective/Interval History
-
Date of Service: October 17, 2024
Reports feeling better, weakness resolved. Denies shortness of breath, denies dyspnea w/ activity. No fever, no vomiting.
Objective Data
-
Labs:
Laboratory Results
10/16/24 10/17/24
22:44 07:25
WBC 2.2 L*
Hgb 8.1 L D 8.6 L
Hct 22.7 L 24.8 L
Plt Count 70 L
Sodium 141
Potassium 4.4
Chloride 113 H
Carbon Dioxide 22
BUN 27 H
Creatinine 1.3
Glucose 98
Calcium 8.4
Vital Signs:
Vital Signs
Temp Pulse Resp BP Pulse Ox
97.9 F 78 20 111/53 96
10/17/24 07:15 10/17/24 07:15 10/17/24 07:15 10/17/24 07:15 10/17/24 07:15
I&O
10/16/24 10/17/24 10/18/24
06:59 06:59 06:59
Intake Total 980 / 980 980 / 980
Output Total 900 / 900
Balance 980 / 980 80 / 80
--- NOTE | 2024-10-17 09:31 | W.DCSUMMARY ---
Discharge Summary
Discharge Data
Date of Admission: 10/15/24
Date of Discharge: 10/17/24
-
Pending Results: No
Hospital Course
Discharge diagnosis:
Symptomatic anemia
Transfusion dependent anemia secondary to myelodysplastic syndrome
Dizziness
Weakness
Myelodysplastic syndrome
Stage III chronic kidney disease
Obesity due to excess calories
Hospital course:
68-year-old male with a past medical history of MDS, transfusion dependent anemia, CKD, and obesity was admitted for symptomatic anemia secondary to MDS. Patient sees Dr. Aguilar in the office, and usually receives blood transfusions every 3 weeks.
Patient's hemoglobin upon admission was 3.6. He was transfused a total of 4 units of packed red blood cells. His hemoglobin improved to 8.6. His dizziness and weakness resolved. He is medically stable for discharge. He needs to follow-up with
his PCP and his usual oncologist in the office in 1 week.
Disposition: Home self-care
Discharge planning: Required 33 minutes
Discharge Plan
-
Patient Disposition: Home (Routine Discharge)
Discharge Diagnosis/Procedures: Transfusion dependent anemia due to myelodysplastic syndrome
Condition: Fair
Diet: Regular
Activity: As tolerated
Driving Restrictions: As prior to admission
Activity Restrictions/Additional Instructions:
Follow-up with your usual youth leader and your primary care doctor in 1 week.
Referrals:
Meliton Gay MD [Family Provider] - in one week
Brian Aguilar MD [Active] - in one week
Prescriptions:
Continued
No Current Medications
0
Discharge Orders:
Discharge Patient (As Directed); Ordered 10/17/24
Ordered By: Alex Velez
Discharge Date and Time
Discharge Date/Time: 10/17/24 13:11
Print Language: PAPUA [place]
--- NOTE | 2024-10-17 09:48 | CM ---
Patient seen at bedside.
IMM explained & royce. In chart
PLAN: Home, no needs
daughter to transport
[2024-10-17 11:30] VITALS: BP 121/61
== END 2024-10-17 13:11 | disposition home or self-care (01) | DRG 812 ==
LOC: 3 WEST ACU 15:03
PROVIDERS: Nurse Practitioner Family; Physician Assistant; ADMITTING PHYSICIAN Hospitalist; ATTENDING PHYSICIAN Family Medicine; EMERGENCY PHYSICIAN Emergency Medicine; FAMILY PHYSICIAN Family Medicine
PROC: 30233N1 Transfusion of Nonautologous Red Blood Cells into Peripheral Vein, Percutaneous Approach (ICD-10-PCS; 2024-10-15)
DX: D46.9 Myelodysplastic syndrome, unspecified (principal); D63.0 Anemia in neoplastic disease; E66.09 Other obesity due to excess calories; D69.59 Other secondary thrombocytopenia; J45.909 Unspecified asthma, uncomplicated; M19.90 Unspecified osteoarthritis, unspecified site; N18.31 Chronic kidney disease, stage 3a
CPT/HCPCS: 80048; 80053; 85014; 85018; 85025; 85027; 86850; 86900; 86901; 86920; 99285; P9016

== ENCOUNTER → 2024-10-23 09:15 | Outpatient (REF) | payer MEDICARE, OTHER, SELFPAY ==
[2024-10-23 10:03] VITALS: BP 126/77; BP_SYST 68
[2024-10-23 10:04] LABS: Hematocrit 28.1 % (39.0-52.0); Hemoglobin 9.2 g/dL (13.0-18.0); Mean Corp Hgb Conc. 32.7 g/dL (33.0-37.0); Mean Corpuscular Hgb 30.3 pg (27.0-31.0); Mean Corpuscular Volume 92.4 fL (80.0-94.0); Mean Platelet Volume 13.5 fL (7.4-10.4); Platelet Count 83 10^3/uL (130-400); Red Blood Cell Count 3.04 10^6/uL (4.70-6.10); Red Cell Dist. Width 14.6 % (11.5-14.5); White Blood Cell Count 1.8 10^3/uL (4.8-10.8)
[2024-10-23 10:10] LABS: INR 0.95
[2024-10-23] MEDS: ATIVAN 0.5 MG IV (10:34)
[2024-10-23] MEDS: NSS (PRESERVATIVE FREE) 0.25 ML IV (10:35)
[2024-10-23 11:36] VITALS: BP 120/66; BP_SYST 71
[2024-10-23 12:42] LABS: % Immature Granulocytes 1.1 % (0-0.5); % Lymphocytes 53.4 % (20.5-51.1); % Monocytes 3.4 % (1.7-9.3); % Neutrophils 42.1 % (42.2-75.2); Absolute Lymphocytes 0.9 10^3/uL (1.2-3.4); Absolute Monocytes 0.1 10^3/uL (0.1-0.6); Absolute Neutrophils 0.7 10^3/uL (1.4-6.5); Nucleated Red Blood Cells % 0 % (-)
== END ==
LOC: RADI 09:15
PROVIDERS: ATTENDING PHYSICIAN Internal Medicine Hematology & Oncology; FAMILY PHYSICIAN Family Medicine; OTHER PHYSICIAN Physician Assistant
DX: D46.A Refractory cytopenia with multilineage dysplasia (principal); D68.8 Other specified coagulation defects
CPT/HCPCS: 88305; 88311; 88312; 36415; 38222; 77012; 85025; 85610; 88313

== ENCOUNTER 2024-11-13 18:02 | Inpatient (IN) | payer MEDICARE, OTHER, SELFPAY ==
[2024-11-13] VITALS (12 sets, daily range): BP systolic 96–140; BP diastolic 51–83; BMI 33.8
--- NOTE | 2024-11-13 15:10 | ED.GENMED ---
History of Present Illness
General
Chief Complaint: Abnormal Lab Value
Source: patient
Exam Limitations: none
Time Seen by Provider: 11/13/24 14:49
Nursing documentation reviewed up to this point in time: agreed with
History of Present Illness
History of Present Illness:
Patient is a 69 year old male w/ hx MDS who presents to the emergency department for evaluation of low hemoglobin found on outpatient labs. The patient has a history of myelodysplastic syndrome (MDS) and is under the care of Dr. Brian eJnsen from
[facility]. The patient reports that he has been dealing with issues related to low hemoglobin for a year or two. A recent bone marrow biopsy, conducted approximately one month ago, showed improved bone marrow condition compared to previous
measurements. He had routine lab work obtained by his oncologist and was referred to the emergency department given low hemoglobin.
He does report shortness of breath upon exertion, such as walking around the block, but is asymptomatic at rest. He reports fatigue. The patient denies any noticeable bleeding, dark or tarry stools, chest pain, or fever, but reports occasional
nonbloody diarrhea.
He has a history of multiple blood transfusions.
Past History
Past History
ED Past Medical History: Asthma and Other (Myelodysplastic syndrome)
ED Past Surgical History: Cholecystectomy
Social History
Tobacco: Non-smoker
Alcohol: None
Drug: None
Personal:
Living: with family
Review of Systems
Review of Systems
Allergies reviewed?: Yes
All Other Systems: ROS reviewed and negative except as documented in HPI and ROS
Phy Exam
Physical Exam
Physical Exam:
Vitals: Patient's vital signs are stable. Afebrile
General: Patient is pale appearing. No apparent distress
Skin: Pale. Warm and dry, no rashes or lesions
Head: Normocephalic, atraumatic
Eyes: Sclera nonicteric. EOMs intact. No nystagmus.
Throat: Protecting airway
Neck: Normal ROM, no cervical spine tenderness, no meningismus
Cardiac: Regular rate and rhythm, no murmurs.
Pulm: Normal respiratory effort, no wheezes, rales, rhonchi heard on exam
.
Abdomen: Abdomen soft and nontender.
Extremities: No evidence of cyanosis or edema. 2+ palpable DP pulses
Neuro: AAOx3. Grossly intact.
Psychiatric: Normal affect.
Course
Orders/Labs/Results
Orders:
Orders
11/13/24 Lunch
Regular
At Your Request: Full Participation
11/13/24 15:21
Type And Crossmatch [Type+Screen] Urgent
Complete Blood Count/With Diff Urgent
Comprehensive Metabolic Panel Urgent
11/13/24 16:10
Blood Bank Products [* Blood Bank Products] Urgent
Blood Bank Products: *Packed RBC Leuko(PRBC's)
Quantity: 2
Transfuse Today: Yes
Reason: Anemia
11/13/24 17:51
Admit/Transfer Patient As Directed
Co-Sign Provider:
Level of Care: Inpatient admission
Assign to:: Medical/Surgical
Physician / Group: theodore/hospitalist
Diagnosis: anemia symptomatic
Reason for Hospitalization: Symptomatic anemia
Expected length of stay greater than two midnights?: Yes
ELOS- Estimated Length of Stay in days: 3
I certify the patient meets the requirements for IP care: Yes
Code Status As Directed
Resuscitation Status: Full Code
PRN Pain Medication Management As Directed
May give lesser potent ordered pain med per pt: Yes
preference::
Protocol:: Medication orders for pain may be administered in a
manner that supports deferring to patient preference
when the pt is:
- Requesting an ordered lesser potent pain medication.
Least to most potent pain medications are defined
as: acetaminophen < NSAID < tramadol < opioids
(morphine, oxycodone, hydromorphone).
- Requesting a lesser dose of the same medication IF
ORDERED.
- Requesting a less intrusive route of administration
if both routes are prescribed by the provider (PO <
IV).
11/13/24 19:35
Acetaminophen [Tylenol] 650 mg PO Q4HPRN PRN
Bisacodyl [Dulcolax] 10 mg RECTAL [id number] PRN
Docusate W/Senna [Senokot-S] 1 tablet PO BIDPRN PRN
Ondansetron Injectable [Zofran] 4 mg IV Q6HPRN PRN
Polyethylene Glycol Powder [Miralax] 17 grams PO DAILYPRN PRN
11/13/24 19:35
Activity As Directed
Activity Level: Out of Bed-Early Mobility
Pneumatic Compression Sleeves As Directed
Type: Knee high
Vital Signs As Directed
Frequency: Per unit guidelines
DX Deep Vein Thrombosis Video Routine
11/14/24 06:00
Basic Metabolic Panel IN AM
Complete Blood Count/With Diff IN AM
11/15/24 06:00
Complete Blood Count/With Diff IN AM
11/16/24 06:00
Complete Blood Count/With Diff IN AM
11/17/24 06:00
Complete Blood Count/With Diff IN AM
Abnormal Lab Results
11/13/24
15:21
WBC 1.7 L* 10^3/uL
(4.8-10.8)
RBC 1.68 L 10^6/uL
(4.70-6.10)
Hgb 5.2 L* g/dL
(13.0-18.0)
Hct 15.1 L* %
(39.0-52.0)
Plt Count 77 L 10^3/uL
(130-400)
MPV 13.6 H fL
(7.4-10.4)
Absolute Neuts (auto) 0.6 L* 10^3/uL
(1.4-6.5)
Absolute Lymphs (auto) 1.1 L 10^3/uL
(1.2-3.4)
Immature Gran % 0.6 H %
(0-0.5)
Neutrophils % 31.6 L %
(42.2-75.2)
Lymphocytes % 62.1 H %
(20.5-51.1)
Chloride 111 H mmol/L
(98-107)
BUN 24 H mg/dl
(9-20)
Glucose 141 H mg/dl
(70-99)
AST 14 L U/L
(17-59)
Total Protein 6.1 L g/dl
(6.3-8.2)
Crossmatch IS Only See Detail
11/13/24 15:21
11/13/24 15:21
Vital Signs
Initial and Last Documented VS:
Initial Vital Signs
Temp Pulse Resp BP Pulse Ox
98.1 F 81 16 113/65 100
11/13/24 14:29 11/13/24 14:29 11/13/24 14:29 11/13/24 14:29 11/13/24 14:29
Last Documented Vital Signs
Temp Pulse Resp BP Pulse Ox
98.3 F 82 20 109/58 98
11/13/24 22:57 11/13/24 22:57 11/13/24 22:57 11/13/24 22:57 11/13/24 22:57
MDM/Problems Addressed
Differential Diagnosis Includes:
Not limited to: Progression of disease, symptomatic anemia, pancytopenia, etc.
MDM/Problems Addressed:
The patient is a 69-year-old male with a history of myelodysplastic syndrome, presenting to the emergency department with acute on chronic symptomatic anemia. The anemia was identified through outpatient lab work the day prior. The patient reports
experiencing exertional dyspnea and fatigue. There are no signs of obvious bleeding, such as bloody or tarry stools. Upon arrival, the patient was hemodynamically stable. Emergency department labs indicated acute on chronic anemia with a hemoglobin
level of 5.2, a significant decrease from 9.2 about a month ago, and pancytopenia, likely indicating progression of his disease.
Discussed with oncology marine resource economist and, given the degree of anemia and significant drop in hemoglobin over the past month, it was recommended that the patient be admitted for further monitoring. Patient will require blood transfusion. Blood consent
signed. 2 units of RBCs ordered in the ED. Patient accepted to hospitalist service in stable condition.
Chronic conditions affecting care:
Myelodysplastic syndrome
Acute Exacerbation and/or Progression of Chronic Illness:
Acute on chronic anemia, pancytopenia
*Pulse Oximetry
Patient hypoxic: no (97% on room air)
*EKG
Interpreted by ED Provider?: NA
*Film Sorter Interpretation
Rate: Film Sorter- N/A
*Critical Care Note
Total Time (30-74mins, 75-104mins- exclusive of procedures): Not Applicable
Data Reviewed
Review of Other/Old Records Reveals: Labs (Outpatient lab work obtained yesterday which reveals hemoglobin of 5.5, white blood cell count of 1.9, and platelets of 71)
Patient Management
Discussion with other providers: Hospitalist and Petrol Tanker Driver (Case discussed with oncology)
Escalation/DeEscalation of care consider admission/obs:
Admit given symptomatic anemia for blood transfusion, further monitor
ED Attending Note
-
Portions of this chart may have been created with voice recognition software.� Occasional wrong word or��sound alike� substitutions may have occurred due to the inherent limitations of voice recognition software.
Discharge Plan
Departure
Patient Disposition: Admit
Date of Disposition: 11/13/24
Time of Disposition: 17:18
Presentation/result/management discussed w/ accepting MD/DO: Hospitalist
Discharge Problem:
Symptomatic anemia, Pancytopenia
Interventions
Interventions:
*Risk Screen - Suicide Last Done: 11/13/24 14:29
*General Assessment Last Done: 11/13/24 15:05
*Neglect/Abuse Screening Last Done: 11/13/24 14:29
*ED- Fall Risk Assessment Last Done: 11/13/24 15:05
*ED COVID-19 Vaccine History Last Done: 11/13/24 15:05
*Nursing Disposition Last Done: 11/13/24 19:42
Discharge Date and Time
Discharge Date/Time: 11/13/24 19:42
[2024-11-13 15:43] LABS: ALT (SGPT) 16 U/L (0-50); AST (SGOT) 14 U/L (17-59); Albumin 3.5 g/dl (3.5-5.0); Alkaline Phosphatase 65 U/L (38-126); Blood Urea Nitrogen 24 mg/dl (9-20); Calcium 8.6 mg/dl (8.4-10.2); Carbon Dioxide 24 mmol/L (22-30); Chloride 111 mmol/L (98-107); Glucose 141 mg/dl (70-99); Potassium 4.7 mmol/L (3.5-5.1); Sodium 142 mmol/L (135-145); Total Bilirubin 0.3 mg/dl (0.2-1.3); Total Protein 6.1 g/dl (6.3-8.2); eGFR > 60.00
[2024-11-13 16:07] LABS: Hematocrit 15.1 % (39.0-52.0); Hemoglobin 5.2 g/dL (13.0-18.0); Mean Corp Hgb Conc. 34.4 g/dL (33.0-37.0); Mean Corpuscular Volume 89.9 fL (80.0-94.0); Red Blood Cell Count 1.68 10^6/uL (4.70-6.10); Red Cell Dist. Width 14.5 % (11.5-14.5); White Blood Cell Count 1.7 10^3/uL (4.8-10.8)
--- NOTE | 2024-11-13 17:39 | HPS.HSE ---
Family Physician
-
Family Physician: Meliton Gay
Chief Complaint
-
abnormal labs
History of Present Illness
69-year-old male extensive past medical history is presenting from home with complaints of generalized fatigue and weakness. States after walking for some period of time he does feel tired. States of chronic cough. States last blood transfusion
was a month ago. States his MDS had good bone marrow biopsy results. States he is feeling really tired. Denies any fevers or chills. Denies any blood in the urine or stools. Denies any gum bleeding. States he follow-up with oncology yesterday
with plan per oncologist to discuss his case further with [facility]. Denies any fevers or chills. Denies any nausea, vomiting or diarrhea or sore throat. States his mobility has decreased due to feeling fatigue and has gained
weight. States he underwent routine blood work and was found to have a low hemoglobin thus came into the ER for transfusion.
Medical History
Past Medical History
Past Medical History: Reports Other
Additional Past Medical History:
Myelodysplastic syndrome
Recurrent transfusion dependent
Chronic pancytopenia
Osteoarthritis
Obesity
CKD 3a
Basal cell cancer
Past Surgical History: Reports Other
Additional Past Surgical History:
Cataract surgery
Cholecystectomy
Left hip replacement
Chronic constipation
Social History
Tobacco: Non-smoker
Alcohol: None
Family History
Family History: Not pertinent
Allergies / Home Medications
Allergies reflects when Allergies were last updated in [employer].
Home Medications with original date entered in [employer]
Allergy/Medication List:
Allergies
Allergy/AdvReac Type Severity Reaction Status Date / Time
Horse/Equine Containing Allergy 'years Verified 10/15/24 10:05
Products ago,
unsure of
reaction'
Home Medications
No Meds [No Current Medications] 06/01/24
Review of Systems
-
History Source: Patient
Constitutional: Reports Fatigue
EENT: Reports No Symptoms
Respiratory: Reports Cough
Cardiac: Reports No Symptoms
Abdomen/GI: Reports No Symptoms
: Reports No Symptoms
Musculoskeletal: Reports No Symptoms
Skin: Reports No Symptoms
Neurological: Reports No Symptoms
Endocrine: Reports No Symptoms
Hematologic/Lymphatic: Denies Bleeding or Bruising
Psych: Reports Depression
Physical Exam
Vital Signs
Vital Signs
Temp Pulse Resp BP Pulse Ox
98.1 F 76 13 131/60 96
11/13/24 14:29 11/13/24 17:15 11/13/24 17:15 11/13/24 17:00 11/13/24 15:34
Physical Exam
General: Well Developed, Well Nourished, No Apparent Distress, Comfortable, Conversant, Appears Chronically Ill and Other (Pale)
HEENT: NormoCephalic, Moist mucous membranes, Atraumatic, Nose Appears Normal and Ears Appear Normal
Respiratory: Clear
Cardiac: S1/S2 and Regular Rhythm; No Murmur or Rub
GI: Soft, Non Tender, Non Distended and Normal Bowel Sounds; No Organomegaly
Rectal: Deferred by Provider
Musculoskeletal: No Clubbing, No Cyanosis and No Edema
Skin: No Rash
Neuro: Awake, Alert, Oriented, AO x 3, No Motor Deficits and Nonfocal/grossly intact
Psych: Calm
Laboratory Results
-
11/13/24 15:21
11/13/24 15:21
Laboratory Results
Total Bilirubin 0.3 mg/dl (0.2-1.3) 11/13/24 15:21
AST 14 U/L (17-59) L 11/13/24 15:21
ALT 16 U/L (0-50) 11/13/24 15:21
Alkaline Phosphatase 65 U/L (38-126) 11/13/24 15:21
Impression/Plan
-
69-year-old male with past medical history of myelodysplastic syndrome, chronic pancytopenia, transfusion dependent anemia presented with weakness and was found to have severe anemia on routine outpatient lab.
#Weakness/fatigue secondary to symptomatic anemia
#Symptomatic recurrent transfusion dependent anemia secondary to MDS
Follows with Dr. Aguilar at [place]
Hemoglobin of 5.2. WBC 1.7.
2 Units of PRBC ordered. Repeat CBC post transfusion to asses response
Awaiting platelets. Transfuse for platelet less than 10,000 or 20K with episode of any bleeding
Monitor patient response to transfusions
Depending on platelet level patient required fall precautions
Monitor for any signs of bleeding
#Myelodysplastic syndrome,
Chronic pancytopenia secondary to MDS
Status post recent bone marrow biopsy. Follows with Dr. Aguilar at [place]
Oncology correspondence noted plans to discuss case further with consultation at [facility]
#CKD 3A
Monitor creatinine.
# Chronic cough
Check a chest x-ray
Obesity due to excess calories
Affects all aspects of care
History of pancreatitis
Osteoarthritis
DVT prophylaxis�SCDs secondary to thrombocytopenia
Full code
[2024-11-13 18:11] LABS: % Immature Granulocytes 0.6 % (0-0.5); % Lymphocytes 62.1 % (20.5-51.1); % Monocytes 5.7 % (1.7-9.3); % Neutrophils 31.6 % (42.2-75.2); Absolute Lymphocytes 1.1 10^3/uL (1.2-3.4); Absolute Monocytes 0.1 10^3/uL (0.1-0.6); Absolute Neutrophils 0.6 10^3/uL (1.4-6.5); Mean Platelet Volume 13.6 fL (7.4-10.4); Nucleated Red Blood Cells % 0 % (-); Platelet Count 77 10^3/uL (130-400)
[2024-11-14] VITALS (7 sets, daily range): BP systolic 109–127; BP diastolic 48–64
--- NOTE | 2024-11-14 04:47 | DOWNTIME ---
Addendum entered by Raphael Jones RN 11/14/24 14:10:
Correction to downtime 11/14/2024 from 0100 to 11/14/24 at 0415.
Original Note:
There was a [employer] Client Standards Engineer Downtime on 11/13/2024 from 0100 to 11/14/2024 at 0415. Downtime documentation of patient's care, including medication administrations, has been reconciled in the electronic record per guidelines. Refer to the
patient's paper chart under the miscellaneous tab to see printed paper medication records and downtime forms.
[2024-11-14 06:29] LABS: Hematocrit 21.2 % (39.0-52.0); Hemoglobin 7.3 g/dL (13.0-18.0); Mean Corp Hgb Conc. 34.4 g/dL (33.0-37.0); Mean Corpuscular Hgb 30.2 pg (27.0-31.0); Mean Corpuscular Volume 87.6 fL (80.0-94.0); Mean Platelet Volume 13.2 fL (7.4-10.4); Platelet Count 67 10^3/uL (130-400); Red Blood Cell Count 2.42 10^6/uL (4.70-6.10); Red Cell Dist. Width 15.2 % (11.5-14.5); White Blood Cell Count 1.9 10^3/uL (4.8-10.8)
[2024-11-14 06:34] LABS: Blood Urea Nitrogen 22 mg/dl (9-20); Calcium 8.4 mg/dl (8.4-10.2); Carbon Dioxide 23 mmol/L (22-30); Chloride 113 mmol/L (98-107); Estimated Creatinine Clearance 69 ml/min; Glucose 93 mg/dl (70-99); Potassium 4.5 mmol/L (3.5-5.1); Sodium 141 mmol/L (135-145); eGFR > 60.00
[2024-11-14 08:33] LABS: Segmented Neutrophils 23 % (42-75)
[2024-11-14 08:34] LABS: Band Neutrophils 0 % (0-3); Lymphocytes 70 % (20-51)
[2024-11-14 08:35] LABS: Atypical Lymphocytes 3 %; Metamyelocytes 1 % (-); Monocytes 2 % (2-9); Myelocytes 1 % (-)
[2024-11-14 08:36] LABS: Normal RBC Morphology Yes; Platelets Checked Yes
[2024-11-14 08:37] LABS: Total Cells Counted 100
[2024-11-14 08:41] LABS: Absolute Neutrophils -Man Diff 0.4 10^3/uL (1.4-6.5)
--- NOTE | 2024-11-14 11:29 | W.PN.HOSP.TC ---
Today's Communication/Plan
-
Transfuse for 1 unit of PRBC
Chest x-ray pending
Monitor overnight to assess further transfusion requirement are not
DC in a.m. if hemoglobin remains stable
Assessment / Plan
Assessment / Plan
General: Well Developed, Well Nourished, No Apparent Distress, Comfortable, Conversant, Appears Chronically Ill and Other (Pale)
HEENT: NormoCephalic, Moist mucous membranes, Atraumatic, Nose Appears Normal and Ears Appear Normal
Respiratory: Clear
Cardiac: S1/S2 and Regular Rhythm; No Murmur or Rub
GI: Soft, Non Tender, Non Distended and Normal Bowel Sounds; No Organomegaly
Rectal: Deferred by Provider
Musculoskeletal: No Clubbing, No Cyanosis and No Edema
Skin: No Rash
Neuro: Awake, Alert, Oriented, AO x 3, No Motor Deficits and Nonfocal/grossly intact
Psych: Calm
69-year-old male with past medical history of myelodysplastic syndrome, chronic pancytopenia, transfusion dependent anemia presented with weakness and was found to have severe anemia on routine outpatient lab.
#Weakness/fatigue secondary to symptomatic anemia
#Symptomatic recurrent transfusion dependent anemia secondary to MDS
Follows with Dr. Jeff prak[facility] [place]
Hemoglobin of 5.2 on admisison
Hemoglobin of 7.3 status post units of PRBC. Will order additional 1 unit of PRBC
Platelets 67K.
Monitor patient response to transfusions
Monitor for any signs of bleeding
#Myelodysplastic syndrome,
Chronic pancytopenia secondary to MDS
Status post recent bone marrow biopsy. Follows with Dr. Aguilar at [place]
Oncology correspondence noted plans to discuss case further with consultation at [facility]
#CKD 3A
Monitor creatinine.
# Chronic cough
Check a chest x-ray
Obesity due to excess calories
Affects all aspects of care
History of pancreatitis
Osteoarthritis
DVT prophylaxis�SCDs secondary to thrombocytopenia
Full code
Anticipated Discharge: Within 24 hours
Subjective/Interval History
-
Date of Service: November 14, 2024
feeling tired/fatigue
Objective Data
-
Labs:
Laboratory Results
11/14/24
05:31
WBC 1.9 L*
Hgb 7.3 L D
Hct 21.2 L
Plt Count 67 L
Sodium 141
Potassium 4.5
Chloride 113 H
Carbon Dioxide 23
BUN 22 H
Creatinine 1.1
Glucose 93
Calcium 8.4
Vital Signs:
Vital Signs
Temp Pulse Resp BP Pulse Ox
99.2 F 68 19 112/48 95
11/14/24 07:00 11/14/24 07:00 11/14/24 07:00 11/14/24 07:00 11/14/24 07:00
I&O
11/13/24 11/14/24 11/15/24
06:59 06:59 06:59
Intake Total 620 / 620
Balance 620 / 620
--- NOTE | 2024-11-14 12:01 | CM ---
Patient seen at bedside
IA completed
Explained role of CM
dx: anemia
PMH: MDS, Recurrent transfusion dependent
Patient lives at home with daughter and son in law, 2 story home, 3 steps to enter, flight of stairs to bedroom/bath, powder room on 1st floor
PLOF: Independent, denies using device
DME: Walker, cane
Denies VN/Rehab
Denies insecurities
PCP: Meliton Gay
Pharmacy: [address], [place]
PLAN: Home, no needs anticipated, CM to continue to follow
states daughter will transport home
--- NOTE | 2024-11-14 14:36 | PTCARENOTE ---
1 unit of PRBC's ordered. Administered without apparent infusion reaction.
[2024-11-15 08:00] VITALS: BP 108/59
[2024-11-15 08:10] LABS: Hematocrit 26.2 % (39.0-52.0); Hemoglobin 9.3 g/dL (13.0-18.0); Mean Corp Hgb Conc. 35.5 g/dL (33.0-37.0); Mean Corpuscular Hgb 30.6 pg (27.0-31.0); Mean Corpuscular Volume 86.2 fL (80.0-94.0); Mean Platelet Volume 13.7 fL (7.4-10.4); Platelet Count 67 10^3/uL (130-400); Red Blood Cell Count 3.04 10^6/uL (4.70-6.10); Red Cell Dist. Width 15.6 % (11.5-14.5)
[2024-11-15 08:47] LABS: % Immature Granulocytes 3.7 % (0-0.5); % Monocytes 7.4 % (1.7-9.3); % Neutrophils 30.9 % (42.2-75.2); Absolute Immature Granulocytes 0.1 10^3/uL (0-0.05); Absolute Lymphocytes 1.1 10^3/uL (1.2-3.4); Absolute Monocytes 0.1 10^3/uL (0.1-0.6); Absolute Neutrophils 0.6 10^3/uL (1.4-6.5); Nucleated Red Blood Cells % 0 % (-); White Blood Cell Count 1.9 10^3/uL (4.8-10.8)
--- NOTE | 2024-11-15 11:28 | W.PN.HOSP.TC ---
Today's Communication/Plan
-
DC home
Outpatient oncology follow-up
Assessment / Plan
Assessment / Plan
General: Well Developed, Well Nourished, No Apparent Distress, Comfortable, Conversant, Appears Chronically Ill and Other (Pale)
HEENT: NormoCephalic, Moist mucous membranes, Atraumatic, Nose Appears Normal and Ears Appear Normal
Respiratory: Nonlabored respiration
GI: Soft, Non Tender, Non Distended and Normal Bowel Sounds; No Organomegaly
Rectal: Deferred by Provider
Musculoskeletal: No Clubbing, No Cyanosis and No Edema
Skin: No Rash
Neuro: Awake, Alert, Oriented, AO x 3, No Motor Deficits and Nonfocal/grossly intact
Psych: Calm
69-year-old male with past medical history of myelodysplastic syndrome, chronic pancytopenia, transfusion dependent anemia presented with weakness and was found to have severe anemia on routine outpatient lab.
#Weakness/fatigue secondary to symptomatic anemia
#Symptomatic recurrent transfusion dependent anemia secondary to MDS
Follows with Dr. Aguilar at [place]
Hemoglobin of 5.2 on admisison
Hemoglobin of 9.3 status post units 3 PRBC.
Appropriate response
Recommend repeat blood work outpatient with PCP oncologist.
#Myelodysplastic syndrome,
Chronic pancytopenia secondary to MDS
Status post recent bone marrow biopsy. Follows with Dr. Aguilar at [place]
Oncology correspondence noted plans to discuss case further with consultation at [facility]
#CKD 3A
Monitor creatinine.
# Chronic cough
Chest x-ray negative for acute infiltrate
Obesity due to excess calories
Affects all aspects of care
History of pancreatitis
Osteoarthritis
DVT prophylaxis�SCDs secondary to thrombocytopenia
Full code
More than 30 minutes spent in discharge including
Final examination of the patient
Summarizing hospital stay
Instructions for continuing care to all relevant caregivers
Preparation of discharge records, prescriptions, and referral forms
Total time spent (in minutes): 52
Anticipated Discharge: Today
Subjective/Interval History
-
Date of Service: November 15, 2024
feeling better
Objective Data
-
Labs:
Laboratory Results
11/15/24
07:14
WBC 1.9 L*
Hgb 9.3 L D
Hct 26.2 L
Plt Count 67 L
Vital Signs:
Vital Signs
Temp Pulse Resp BP Pulse Ox
99.0 F 69 16 108/59 95
11/15/24 08:00 11/15/24 08:00 11/15/24 08:00 11/15/24 08:00 11/15/24 08:00
I&O
11/14/24 11/15/24 11/16/24
06:59 06:59 06:59
Intake Total 620 / 620 1929
Balance 620 / 620 1929
--- NOTE | 2024-11-15 11:31 | W.DCSUMMARY ---
Discharge Summary
Discharge Data
Date of Admission: 11/13/24
Date of Discharge: 11/15/24
-
Pending Results: No
Hospital Course
69-year-old male past medical history of myelodysplastic syndrome, recurrent transfusion dependent anemia, chronic pancytopenia, osteoarthritis, CKD, obesity was presented with abnormal lab. Patient was found to be anemia on outpatient lab.
Patient hemoglobin was 5.3 on admission. Patient received total of 3 units of PRBC. Hemoglobin up trended 9.3. Patient felt better. Patient was recommended repeat blood work in 1 week outpatient with primary doctor or oncology. Patient was
tolerating diet. Vital signs were stable. Patient be discharged home with recommendation to follow with primary doctor and oncology Dr. Aguilar.
Discharge Plan
-
Patient Disposition: Home (Routine Discharge)
Discharge Diagnosis/Procedures: Symptomatic anemia status post blood transfusion in the setting of myelodysplastic syndrome
Condition: Fair
Diet: Regular
Activity: As tolerated
Driving Restrictions: As prior to admission
Blood Work: CBC in 1 week via primary doctor or oncology
Referrals:
Meliton Gay MD [Family Provider, Family Practice] - in less than 1 week
Brian Aguilar MD [Active, Hematology / Oncology]
Prescriptions:
No Action
No Current Medications
0
Discharge Orders:
Discharge Patient (As Directed); Ordered 11/15/24
Ordered By: Ector Murry
Discharge Date and Time
Discharge Date/Time: 11/15/24 13:16
Print Language: GEORGIAN
--- NOTE | 2024-11-15 11:45 | CM ---
Patient seen at bedside
discharge today
IMM explained & signed. In chart
PLAN: Home, no needs
daughter to transport
[2024-11-15 12:41] VITALS: BP 137/72
[2024-11-15 20:32] LABS: Hepatitis C Antibody Negative (Negative)
== END 2024-11-15 13:16 | disposition home or self-care (01) | DRG 812 ==
LOC: 3 WEST ACU 18:02
PROVIDERS: Emergency Medicine; ADMITTING PHYSICIAN Hospitalist; EMERGENCY PHYSICIAN Student in an Organized Health Care Education/Training Program; FAMILY PHYSICIAN Family Medicine
PROC: 30233N1 Transfusion of Nonautologous Red Blood Cells into Peripheral Vein, Percutaneous Approach (ICD-10-PCS; 2024-11-13)
DX: D46.9 Myelodysplastic syndrome, unspecified (principal); D61.818 Other pancytopenia; D63.0 Anemia in neoplastic disease; N18.31 Chronic kidney disease, stage 3a; E66.09 Other obesity due to excess calories; M19.90 Unspecified osteoarthritis, unspecified site
CPT/HCPCS: 36430; 71046; 80048; 80053; 85025; 86803; 86850; 86900; 86901; 86920; 99285; P9016

== ENCOUNTER → 2024-12-03 10:36 | Outpatient (REF) | payer MEDICARE, OTHER, SELFPAY ==
[2024-12-03 12:31] LABS: Hematocrit 19.2 % (39.0-52.0); Hemoglobin 6.2 g/dL (13.0-18.0); Mean Corp Hgb Conc. 32.3 g/dL (33.0-37.0); Mean Corpuscular Volume 91.4 fL (80.0-94.0); Platelet Count 79 10^3/uL (130-400); Red Cell Dist. Width 14.2 % (11.5-14.5)
[2024-12-03 13:08] LABS: Nucleated Red Blood Cells % 0 % (-)
== END ==
LOC: REG 10:36
PROVIDERS: ATTENDING PHYSICIAN Internal Medicine Hematology & Oncology; FAMILY PHYSICIAN Family Medicine
DX: D64.9 Anemia, unspecified (principal); D46.A Refractory cytopenia with multilineage dysplasia
CPT/HCPCS: 36415; 85025

== ENCOUNTER → 2024-12-04 10:43 | Outpatient (REF) | payer MEDICARE, OTHER, SELFPAY ==
[2024-12-04 13:51] LABS: Hematocrit 18.9 % (39.0-52.0); Hemoglobin 6.3 g/dL (13.0-18.0); Mean Corp Hgb Conc. 33.3 g/dL (33.0-37.0); Mean Corpuscular Volume 90.4 fL (80.0-94.0); Nucleated Red Blood Cells % 0 % (-); Platelet Count 80 10^3/uL (130-400); Red Cell Dist. Width 14.3 % (11.5-14.5)
== END ==
LOC: REG 10:43
PROVIDERS: ATTENDING PHYSICIAN Nurse Practitioner Primary Care; FAMILY PHYSICIAN Internal Medicine Hematology & Oncology
DX: D64.9 Anemia, unspecified (principal); D46.A Refractory cytopenia with multilineage dysplasia
CPT/HCPCS: 85025

== ENCOUNTER 2024-12-06 08:29 | Outpatient (RCR) | payer MEDICARE, OTHER, SELFPAY ==
[2024-12-06] VITALS (7 sets, daily range): BP systolic 111–141; BP diastolic 48–60
== END 2024-12-27 23:59 | disposition home or self-care (01) ==
LOC: OID 08:29
PROVIDERS: ATTENDING PHYSICIAN Internal Medicine Hematology & Oncology; FAMILY PHYSICIAN Family Medicine
DX: D46.9 Myelodysplastic syndrome, unspecified (principal); D64.9 Anemia, unspecified
CPT/HCPCS: 36415; 36430; 86850; 86900; 86901; 86920; P9016

== ENCOUNTER → 2024-12-27 10:30 | Outpatient (REF) | payer MEDICARE, OTHER, SELFPAY ==
[2024-12-27 12:00] LABS: Hematocrit 18.5 % (39.0-52.0); Hemoglobin 6.0 g/dL (13.0-18.0); Mean Corp Hgb Conc. 32.4 g/dL (33.0-37.0); Mean Corpuscular Volume 89.8 fL (80.0-94.0); Platelet Count 75 10^3/uL (130-400); Red Cell Dist. Width 13.7 % (11.5-14.5)
[2024-12-27 12:46] LABS: Absolute Neutrophils -Man Diff 1.2 10^3/uL (1.4-6.5); Platelets Checked Yes
[2024-12-27 12:47] LABS: Anisocytosis 1+; Hypochromasia 1+; Normal RBC Morphology No; Total Cells Counted 100
== END ==
LOC: REG 10:30
PROVIDERS: ATTENDING PHYSICIAN Internal Medicine Hematology & Oncology; FAMILY PHYSICIAN Family Medicine
DX: D64.9 Anemia, unspecified (principal); D46.A Refractory cytopenia with multilineage dysplasia
CPT/HCPCS: 36415; 85025

== ENCOUNTER 2024-12-28 10:26 | Emergency (ER) | payer MEDICARE, OTHER, SELFPAY ==
[2024-12-28] VITALS (16 sets, daily range): BP systolic 107–133; BP diastolic 49–64; BMI 32.1
--- NOTE | 2024-12-28 12:12 | ED.GENMED ---
History of Present Illness
General
Chief Complaint: Abnormal Lab Value
Source: patient
Exam Limitations: none
Time Seen by Provider: 12/28/24 12:06
Nursing documentation reviewed up to this point in time: agreed with
History of Present Illness
History of Present Illness:
Patient is a 69-year-old male with history of MDS pancreatitis, followed by [facility], Dr. Aguilar presents here to the ER for evaluation. He typically gets blood transfusions every 3 weeks and his last transfusion was 3 weeks ago. He
was sent in for transfusion as hemoglobin was 6.0. It has been as low as 4.5 in the past. He does have some shortness of breath with exertion relating to his anemia. He denies any black or dark stools he is not on blood thinners no history of
GI bleed.
Past History
Past History
ED Past Medical History: Asthma and Other (Myelodysplastic syndrome)
ED Past Surgical History: Cholecystectomy
Social History
Tobacco: Non-smoker
Alcohol: None
Drug: None
Personal:
Living: with family
Phy Exam
General Physical Exam
General Presentation: no apparent distress
General age: appears stated age
General Skin: warm, dry and pale
General Habitus: elderly
General Mental: alert
General Hydration: appears well hydrated
Cardiovascular Exam
Cardiovascular Exam: regular rate/rhythm, no murmur and normal peripheral pulses
Pulmonary Exam
Pulmonary Exam: lungs clear and no respiratory distress
Neurological Exam
Neurological Exam: oriented x3
Musculoskeletal Exam
Musculoskeletal Exam: full ROM
Skin Exam
Skin Exam: normal color and warm/dry
Psychiatric Exam
Psychiatric Exam: normal mood/affect
Course
Orders/Labs/Results
Orders:
Orders
12/28/24 12:20
* Blood Bank Products Urgent
's Orders: melchor/sophie
Blood Bank Products: *Packed RBC Leuko(PRBC's)
Quantity: 2
Transfuse Today: Yes
Reason: Anemia
Patient will require pre-treatment for transfusion:: Yes
Comment: obtained
IV Insert/Care/Rem.- Treatment PRN
12/28/24 12:26
Type+Screen Urgent
Complete Blood Count/With Diff Urgent
Comprehensive Metabolic Panel Urgent
Manual Differential Urgent
Abnormal Lab Results
12/28/24
12:26
WBC 1.7 L* 10^3/uL
(4.8-10.8)
RBC 1.82 L 10^6/uL
(4.70-6.10)
Hgb 5.2 L* g/dL
(13.0-18.0)
Hct 16.1 L* %
(39.0-52.0)
MCHC 32.3 L g/dL
(33.0-37.0)
Plt Count 60 L 10^3/uL
(130-400)
MPV 12.9 H fL
(7.4-10.4)
Abs Neuts (Manual) 0.4 L* 10^3/uL
(1.4-6.5)
Segmented Neutrophils 23 L %
(42-75)
Lymphocytes (Manual) 70 H %
(20-51)
Chloride 110 H mmol/L
(98-107)
BUN 27 H mg/dl
(9-20)
Glucose 110 H mg/dl
(70-99)
AST 13 L U/L
(17-59)
Total Protein 6.0 L g/dl
(6.3-8.2)
Crossmatch IS Only See Detail
12/28/24 12:26
12/28/24 12:26
Vital Signs
Initial and Last Documented VS:
Initial Vital Signs
Temp Pulse Resp BP Pulse Ox
98.4 F 76 16 133/63 100
12/28/24 10:29 12/28/24 10:29 12/28/24 10:29 12/28/24 10:29 12/28/24 10:29
Last Documented Vital Signs
Temp Pulse Resp BP Pulse Ox
98.6 F 74 20 121/64 100
12/28/24 18:12/28/24 18:12/28/24 18:12/28/24 18:12/28/24 18:00
Cassandra Consultant consulted with Physician
Cassandra Consultant consulted with physician?: Yes
Name of Physician Consulted: sophie
MDM/Problems Addressed
Differential Diagnosis Includes:
Not limited to anemia related to MDS
MDM/Problems Addressed:
As documented patient is a 69-year-old male with history of MDS followed by [facility] was sent to the ER for blood transfusion. He was originally recommended to come to the ER yesterday. Typically he gets infusions at the [facility]
but they were not able to take him which is why they were again sent to the ER. He presents here. He denies feels a little shortness of breath from the anemia but this is typical for him. He denies any black or dark stools and is on blood
thinners. Today's hemoglobin is 5.2 his white count is 1.7 his absolute refills of 400 and his platelets are low at 60,000. All of his levels were compared to his history and with his history of MDS there are no acute changes. I spoke with
Rito as well as BRITTANY Pichardo and they recommend transfusing 2 units and DC home.
Chronic conditions affecting care:
MDS
*Pulse Oximetry
SaO2: 100
Oxygen Mode of Delivery: Room air
Patient hypoxic: no
*Critical Care Note
Total Time (30-74mins, 75-104mins- exclusive of procedures): Not Applicable
ED Attending Note
-
Portions of this chart may have been created with voice recognition software.� Occasional wrong word or��sound alike� substitutions may have occurred due to the inherent limitations of voice recognition software.
Discharge Plan
Departure
Patient Disposition: Home (Routine Discharge)
Date of Disposition: 12/28/24
Time of Disposition: 19:09
Patient with high blood pressure during this ER visit?: No
Condition: Fair
Covid-19: Not Applicable
Discharge Problem:
Anemia
Instructions: BLOOD PRESSURE
Prescriptions:
No Action
No Current Medications
0
Referrals:
Joshua Cullen DO [Active, Hematology / Oncology]
Meliton Gay MD [Family Provider, [facility]]
Activity Restrictions/Additional Instructions:
You were given 2 units of packed red blood cells for your hemoglobin of 5.2. Your other counts are low as well however these are not new. Please closely follow-up with your oncologist.
Return if any worsening of symptoms.
Interventions
Interventions:
*Risk Screen - Suicide Last Done: 12/28/24 10:29
*General Assessment Last Done: 12/28/24 11:46
*Neglect/Abuse Screening Last Done: 12/28/24 11:46
*ED- Fall Risk Assessment Last Done: 12/28/24 11:46
*ED COVID-19 Vaccine History Last Done: 12/28/24 11:46
Discharge Date and Time
Print Language: NEPALI
[2024-12-28 13:01] LABS: Hematocrit 16.1 % (39.0-52.0); Hemoglobin 5.2 g/dL (13.0-18.0); Mean Corp Hgb Conc. 32.3 g/dL (33.0-37.0); Mean Corpuscular Volume 88.5 fL (80.0-94.0); Platelet Count 60 10^3/uL (130-400); Red Cell Dist. Width 13.7 % (11.5-14.5)
[2024-12-28 13:12] LABS: ALT (SGPT) 17 U/L (0-50); AST (SGOT) 13 U/L (17-59); Albumin 3.5 g/dl (3.5-5.0); Alkaline Phosphatase 57 U/L (38-126); Blood Urea Nitrogen 27 mg/dl (9-20); Calcium 8.9 mg/dl (8.4-10.2); Carbon Dioxide 24 mmol/L (22-30); Chloride 110 mmol/L (98-107); Estimated Creatinine Clearance 61 ml/min; Glucose 110 mg/dl (70-99); Potassium 4.2 mmol/L (3.5-5.1); Sodium 140 mmol/L (135-145); Total Protein 6.0 g/dl (6.3-8.2); eGFR > 60.00
[2024-12-28 13:18] LABS: Normal RBC Morphology No; Platelets Checked YES
[2024-12-28 13:19] LABS: Hypochromasia Slight
[2024-12-28 13:20] LABS: Rouleaux Slight; Total Cells Counted 100
[2024-12-28 13:22] LABS: Absolute Neutrophils -Man Diff 0.4 10^3/uL (1.4-6.5)
== END 2024-12-28 19:32 | disposition home or self-care (01) ==
LOC: EMR 10:26
PROVIDERS: Nurse Practitioner; EMERGENCY PHYSICIAN Emergency Medicine; FAMILY PHYSICIAN Family Medicine
DX: D46.9 Myelodysplastic syndrome, unspecified (principal); D63.8 Anemia in other chronic diseases classified elsewhere; J45.909 Unspecified asthma, uncomplicated
CPT/HCPCS: 99285; 36430; 80053; 85025; 86850; 86900; 86901; 86920; P9016

== ENCOUNTER 2025-01-17 15:27 | Emergency (ER) | payer MEDICARE, OTHER, SELFPAY ==
[2025-01-17] VITALS (18 sets, daily range): BP systolic 103–133; BP diastolic 50–75; BMI 34.3
--- NOTE | 2025-01-17 19:50 | ED.GENMED ---
History of Present Illness
General
Chief Complaint: Abnormal Lab Value
Source: patient
Exam Limitations: none
Time Seen by Provider: 01/17/25 19:20
History of Present Illness
History of Present Illness:
69-year-old male with myelodysplastic syndrome presents with anemia. When he gets anemia to this degree he generally has fatigue and some shortness of breath. This is typical for this level of anemia. No other symptoms denying fever chills
unusual cough abdominal pain urinary symptoms or any other infectious symptoms
Past History
Past History
ED Past Medical History: Asthma and Other (Myelodysplastic syndrome)
ED Past Surgical History: Cholecystectomy
Social History
Tobacco: Non-smoker
Alcohol: None
Drug: None
Personal:
Living: with family
Review of Systems
Review of Systems
All Other Systems: Not applicable
Constitutional: Denies fever or chills
Respiratory: Denies cough
ABD/GI: Denies abdominal pain
: Reports no symptoms
Phy Exam
Physical Exam
Physical Exam:
GENERAL: Alert and oriented in no apparent distress
EYE: Orbits normal.
NECK: Supple
CARDIAC: Regular rate and rhythm without any obvious murmurs.
LUNGS: Clear breath sounds,normal
ABDOMEN: Soft, without focal tenderness or distention. I checked external stool that tested negative. No true rectal exam
NEUROLOGICAL: Alert and oriented , grossly non-focal
SKIN: Warm and dry, pale
MUSCULOSKELETAL: No edema,no deformity.Good color
PSYCH: Normal and appropriate interaction.
Course
Orders/Labs/Results
Orders:
Orders
01/17/25 15:59
Type+Screen Urgent
BBK Wristband Number:
01/17/25 19:49
* Blood Bank Products Urgent
Blood Bank Products: *Packed RBC Leuko(PRBC's)
Quantity: 2
Transfuse Today: Yes
Reason: Anemia
IV Insert/Care/Rem.- Treatment PRN
Abnormal Lab Results
01/17/25
15:59
Crossmatch IS Only See Detail
Vital Signs
Initial and Last Documented VS:
Initial Vital Signs
Temp Pulse Resp BP Pulse Ox
98.3 F 79 18 133/61 99
01/17/25 15:30 01/17/25 15:30 01/17/25 15:30 01/17/25 15:30 01/17/25 15:30
Last Documented Vital Signs
Temp Pulse Resp BP Pulse Ox
98.6 F 73 14 121/60 100
01/18/25 03:25 01/18/25 03:30 01/18/25 03:30 01/18/25 03:25 01/18/25 03:30
MDM/Problems Addressed
Differential Diagnosis Includes:
Symptomatic anemia. Usually requires 2 units of blood. Reviewed with heme-onc. Also appears to be having progressive neutropenia and thrombocytopenia. No acute bleeding issues. No infectious issues. They will follow this up.
*Pulse Oximetry
SaO2: 100
Oxygen Mode of Delivery: Room air
Patient hypoxic: no
*Critical Care Note
Total Time (30-74mins, 75-104mins- exclusive of procedures): Not Applicable
Data Reviewed
Review of Other/Old Records Reveals: Labs, Records and Testing
ED Attending Note
-
Portions of this chart may have been created with voice recognition software.� Occasional wrong word or��sound alike� substitutions may have occurred due to the inherent limitations of voice recognition software.
Discharge Plan
Departure
Patient Disposition: Home (Routine Discharge)
Patient with high blood pressure during this ER visit?: Yes
Discharge Problem:
Myelodysplastic syndrome, Symptomatic anemia, Borderline neutropenia, Thrombocytopenia
Instructions: Normocytic Normochromic Anemia (DC)
Prescriptions:
No Action
No Current Medications
0
Referrals:
Meliton Gay MD [Family Provider, Family Practice] - Follow up in 2-3 days
Activity Restrictions/Additional Instructions:
Call your oncologist first thing tomorrow for close follow-up
Return immediately with worse fatigue or weakness shortness of breath, any infectious symptoms etc.
Also return with any unusual bleeding
Interventions
Interventions:
*Risk Screen - Suicide Last Done: 01/17/25 15:30
*General Assessment Last Done: 01/17/25 15:30
*Neglect/Abuse Screening Last Done: 01/17/25 15:30
*ED- Fall Risk Assessment Last Done: 01/17/25 20:42
*ED COVID-19 Vaccine History Last Done: 01/17/25 20:42
*Nursing Disposition Last Done: 01/18/25 03:30
Discharge Date and Time
Discharge Date/Time: 01/18/25 03:30
Print Language: YI
[2025-01-18] VITALS (13 sets, daily range): BP systolic 108–127; BP diastolic 43–66
== END 2025-01-18 03:30 | disposition home or self-care (01) ==
LOC: EMR 15:27
PROVIDERS: EMERGENCY PHYSICIAN Emergency Medicine; FAMILY PHYSICIAN Family Medicine
DX: D64.9 Anemia, unspecified (principal); D69.6 Thrombocytopenia, unspecified; D70.9 Neutropenia, unspecified; J45.909 Unspecified asthma, uncomplicated
CPT/HCPCS: 99285; 36430; 36415; 85025; 86850; 86900; 86901; 86920; P9016

== ENCOUNTER 2025-02-07 15:06 | Emergency (ER) | payer MEDICARE, OTHER, SELFPAY ==
[2025-02-07] VITALS (11 sets, daily range): BP systolic 118–135; BP diastolic 60–69
--- NOTE | 2025-02-07 17:10 | ED.GENMED ---
History of Present Illness
General
Chief Complaint: Abnormal Lab Value
Source: patient and records
Time Seen by Provider: 02/07/25 16:29
History of Present Illness
History of Present Illness:
69-year-old male with past medical history of myelodysplastic syndrome, thrombocytopenia, previous pancreatitis presenting to the emergency department from the outpatient infusion department due to a hemoglobin of 5.1, patient was supposed to get 1
unit of blood today however due to the hemoglobin requiring more than 1 unit was recommended to come to the ER for further evaluation and treatment. Patient states that he has been feeling a little short of breath especially with exertion as well
as fatigue, similar to multiple previous times that brought him to the ER requiring transfusion. Patient was here in this emergency department twice in December for the same. He follows with dealer accounts investigator, Dr. Aguilar. He is otherwise denying any
current chest pain, palpitations, diaphoresis, abdominal pain, nausea, vomiting, black or dark stools or any other concerns.
Past History
Past History
ED Past Medical History: Asthma and Other (Myelodysplastic syndrome)
ED Past Surgical History: Cholecystectomy and Orthopedic
Social History
Tobacco: Non-smoker
Alcohol: None
Drug: None
Personal:
Living: with family
Review of Systems
Review of Systems
All Other Systems: ROS reviewed and negative except as documented in HPI and ROS
Phy Exam
Physical Exam
Physical Exam:
GENERAL: Alert , in no apparent distress
HEAD: Normocephalic atraumatic
EYE: conjunctiva clear
NECK: Supple
ENT: o/p clr, mmm.
CARDIAC: Regular rate and rhythm
LUNGS: Clear breath sounds bilaterally, no acute respiratory distress, no wheezes/rales/rhonchi
NEUROLOGICAL: Alert and oriented
SKIN: Warm and dry, skin intact. Pale in appearance
MUSCULOSKELETAL: well perfused.
PSYCH: Normal and appropriate interaction.
Scores
Heart Failure Risk
Heart Failure Risk Score: Not Applicable
Heart Score for Chest Pain Patients
STEMI patient?: Not applicable
Withdrawal Assessment of Alcohol
Withdrawal Assessment Completed?: Not applicable
Course
Orders/Labs/Results
Orders:
Orders
02/07/25 16:52
* Blood Bank Products Urgent
Blood Bank Products: *Packed RBC Leuko(PRBC's)
Quantity: 2
Transfuse Today: Yes
Reason: Anemia
02/07/25 17:57
Add On- LAB Urgent
Tests Added?: type and screen
02/07/25 18:03
Type+Screen Urgent
BBK Wristband Number:
Abnormal Lab Results
02/07/25
18:03
Crossmatch IS Only See Detail
02/07/25 16:32
02/07/25 16:32
Vital Signs
Initial and Last Documented VS:
Initial Vital Signs
Temp Pulse Resp BP Pulse Ox
98.5 F 78 16 118/60 97
02/07/25 15:08 02/07/25 15:08 02/07/25 15:08 02/07/25 15:08 02/07/25 15:08
Last Documented Vital Signs
Temp Pulse Resp BP Pulse Ox
97.5 F 82 22 130/67 99
02/07/25 22:20 02/07/25 23:30 02/07/25 23:30 02/07/25 23:00 02/07/25 23:30
MDM/Problems Addressed
Differential Diagnosis Includes:
Acute on chronic exacerbation of myelodysplastic syndrome
Symptomatic anemia
Thrombocytopenia
Pancytopenia
GI bleed considered however patient without black or dark stools, history of multiple previous exacerbations of MDS requiring blood transfusion
MDM/Problems Addressed:
69-year-old male presenting to the ER for evaluation of acute on chronic anemia and thrombocytopenia. Based off record review patient had hemoglobin of 5.1 on his last 2 visits to the emergency department requiring 2 units of blood. Patient's
hemoglobin today 5.1, platelets 27. No evidence for acute active bleeding. Will message flight communications specialist dealer accounts investigator to discuss to see if they are okay with patient receiving 2 units. If patient only needs 2 units we will keep in the emergency department
and discharge from the ER, if requires further transfusion will admit.
Chronic conditions affecting care: Other (Myelodysplastic syndrome)
Acute Exacerbation and/or Progression of Chronic Illness: Other (Myelodysplastic syndrome)
*Pulse Oximetry
SaO2: 97
Oxygen Mode of Delivery: Room air
Patient hypoxic: no
*Critical Care Note
Total Time (30-74mins, 75-104mins- exclusive of procedures): Not Applicable
Data Reviewed
Review of Other/Old Records Reveals: Labs and Records
Patient Management
Escalation/DeEscalation of care consider admission/obs:
Patient completed transfusion without difficulties. Feeling better following the transfusion. He will follow-up as an outpatient with hematology/oncology. Aware of return precautions to the ER.
ED Attending Note
-
Portions of this chart may have been created with voice recognition software.� Occasional wrong word or��sound alike� substitutions may have occurred due to the inherent limitations of voice recognition software.
Discharge Plan
Departure
Patient Disposition: Home (Routine Discharge)
Date of Disposition: 02/07/25
Time of Disposition: 23:19
Patient with high blood pressure during this ER visit?: No
Discharge Problem:
Anemia, Thrombocytopenia
Instructions: Myelodysplastic syndromes (MDS)
Prescriptions:
No Action
No Current Medications
0
Referrals:
Meliton Gay MD [Family Provider, Family Practice]
Interventions
Interventions:
*Risk Screen - Suicide Last Done: 02/07/25 15:10
*General Assessment Last Done: 02/07/25 16:45
*Neglect/Abuse Screening Last Done: 02/07/25 15:10
*ED- Fall Risk Assessment Last Done: 02/07/25 16:45
*ED COVID-19 Vaccine History Last Done: 02/07/25 16:45
Discharge Date and Time
Print Language: ALBANIAN
== END 2025-02-08 00:42 | disposition home or self-care (01) ==
LOC: EMR 15:06
PROVIDERS: EMERGENCY PHYSICIAN Emergency Medicine; FAMILY PHYSICIAN Family Medicine
DX: D64.9 Anemia, unspecified (principal); D69.6 Thrombocytopenia, unspecified; J45.909 Unspecified asthma, uncomplicated
CPT/HCPCS: 99285; 36430; 36415; 85025; 86850; 86900; 86901; 86920; P9016

== ENCOUNTER 2025-02-21 11:58 | Emergency (ER) | payer MEDICARE, OTHER, SELFPAY ==
[2025-02-21] VITALS (19 sets, daily range): BP systolic 104–130; BP diastolic 53–79
--- NOTE | 2025-02-21 13:23 | ED.GENMED ---
History of Present Illness
General
Chief Complaint: Abnormal Lab Value
Time Seen by Provider: 02/21/25 12:31
Nursing documentation reviewed up to this point in time: agreed with
History of Present Illness
History of Present Illness:
69-year-old male presents to the ER for blood transfusion. Patient has a history of myelodysplastic syndrome and has required frequent blood transfusions, most recently on February 07. Patient is under the care of Dr. Aguilar. He had outpatient
labs drawn today finding a value of 5.8 prompting referral to the ER. He reports feeling fatigued but denies any chest pain or shortness of breath. No peripheral edema. He denies any GI bleeding. No recent change in his medications.
Past History
Past History
ED Past Medical History: Asthma and Other (Myelodysplastic syndrome)
ED Past Surgical History: Cholecystectomy and Orthopedic
Social History
Tobacco: Non-smoker
Alcohol: None
Drug: None
Personal:
Living: with family
Review of Systems
Review of Systems
Allergies reviewed?: Yes
Phy Exam
Physical Exam
Physical Exam:
Patient is awake, alert, appears in no acute distress, pale, head is NCAT, PERRL, EOMI mucous membranes moist, heart regular rate and rhythm without murmurs or ectopy, lungs are clear to auscultation without wheezes rales or rhonchi, no JVD, abdomen
is soft and nontender on palpation, extremities without edema, GCS is 15
Course
Orders/Labs/Results
Orders:
Orders
02/21/25 12:51
* Blood Bank Products Urgent
Blood Bank Products: *Packed RBC Leuko(PRBC's)
Quantity: 2
Transfuse Today: Yes
Reason: Anemia
02/21/25 13:13
Type+Screen Urgent
Complete Blood Count/No Diff Urgent
Abnormal Lab Results
02/21/25
13:13
WBC 1.4 L* 10^3/uL
(4.8-10.8)
RBC 1.81 L 10^6/uL
(4.70-6.10)
Hgb 5.4 L* g/dL
(13.0-18.0)
Hct 15.9 L* %
(39.0-52.0)
Plt Count 16 L* 10^3/uL
(130-400)
MPV 12.5 H fL
(7.4-10.4)
Crossmatch IS Only See Detail
02/21/25 13:13
Vital Signs
Initial and Last Documented VS:
Initial Vital Signs
Temp Pulse Resp BP Pulse Ox
98.3 F 94 14 125/56 97
02/21/25 11:59 02/21/25 11:59 02/21/25 11:59 02/21/25 11:59 02/21/25 11:59
Last Documented Vital Signs
Temp Pulse Resp BP Pulse Ox
98.2 F 81 12 116/55 98
02/21/25 15:05 02/21/25 15:05 02/21/25 15:05 02/21/25 15:05 02/21/25 15:05
*Pulse Oximetry
SaO2: 97
Oxygen Mode of Delivery: Room air
Patient hypoxic: no
*Critical Care Note
Total Time (30-74mins, 75-104mins- exclusive of procedures): Not Applicable
Update Note
Update Note:
I reviewed prior ER visits-patient received 2 unit blood transfusion and was discharged. I have reached out to his primary [employer], Dr Aguilar, who is aware of current status. He would agree with plan for transfusion of 2 uPRBCs and d/c. Full
patient care transferred to Dr Villalta at end of my shift pending remaining transfusion/observation for d/c
ED Attending Note
-
Portions of this chart may have been created with voice recognition software.� Occasional wrong word or��sound alike� substitutions may have occurred due to the inherent limitations of voice recognition software.
Discharge Plan
Departure
Discharge Problem:
Myelodysplastic syndrome, Symptomatic anemia
Instructions: Blood transfusion
Prescriptions:
No Action
No Current Medications
0
Referrals:
Meliton Gay MD [Family Provider, Family Practice]
Brian Aguilar MD [Active, Hematology / Oncology] - Follow up in 5-7 days
Activity Restrictions/Additional Instructions:
Please follow-up with Dr. Aguilar for reevaluation and further care. Return to the ER for any concerns
Interventions
Interventions:
*Risk Screen - Suicide Last Done: 02/21/25 11:59
*General Assessment Last Done: 02/21/25 11:59
*Neglect/Abuse Screening Last Done: 02/21/25 11:59
*ED COVID-19 Vaccine History Last Done: 02/21/25 11:59
Discharge Date and Time
Print Language: ALBANIAN
[2025-02-21 13:47] LABS: Hematocrit 15.9 % (39.0-52.0); Hemoglobin 5.4 g/dL (13.0-18.0); Mean Corp Hgb Conc. 34.0 g/dL (33.0-37.0); Mean Corpuscular Volume 87.8 fL (80.0-94.0); Platelet Count 16 10^3/uL (130-400); Red Cell Dist. Width 13.6 % (11.5-14.5)
== END 2025-02-21 19:25 | disposition home or self-care (01) ==
LOC: EMR 11:58
PROVIDERS: EMERGENCY PHYSICIAN Emergency Medicine; FAMILY PHYSICIAN Family Medicine
DX: D64.9 Anemia, unspecified (principal); J45.909 Unspecified asthma, uncomplicated
CPT/HCPCS: 99285; 36430; 36415; 85025; 85027; 86850; 86900; 86901; 86920; P9016

== ENCOUNTER → 2025-02-27 08:55 | Outpatient (REF) | payer MEDICARE, OTHER, SELFPAY ==
[2025-02-27] VITALS (7 sets, daily range): BP systolic 15–122; BP diastolic 64–82
[2025-02-27] MEDS: ATIVAN 0.5 MG PO (09:48)
[2025-02-27 09:50] LABS: INR 0.98; PT 13.5 Sec (11.4-14.6)
[2025-02-27 09:51] LABS: Hematocrit 26.0 % (39.0-52.0); Hemoglobin 8.7 g/dL (13.0-18.0); Mean Corp Hgb Conc. 33.5 g/dL (33.0-37.0); Mean Corpuscular Volume 89.3 fL (80.0-94.0); Platelet Count 12 10^3/uL (130-400); Red Cell Dist. Width 13.1 % (11.5-14.5)
[2025-02-27 10:14] LABS: Nucleated Red Blood Cells % 0 % (-)
--- NOTE | 2025-02-27 10:28 | PTCARENOTE ---
TABATHA RN- patient denies taking aspirin despite medication list noted on office note from Dr. Aguilar. patient denies taking any pills including anything over the counter.
--- NOTE | 2025-02-27 10:42 | PTCARENOTE ---
TABATHA RAMIREZ- Dr. Aguilar aware of critical lab values. no new orders at this time.
== END ==
LOC: RADI 08:55
PROVIDERS: ATTENDING PHYSICIAN Internal Medicine Hematology & Oncology
DX: D46.A Refractory cytopenia with multilineage dysplasia (principal)
CPT/HCPCS: 36415; 38222; 77012; 85025; 85610; 88305; 88311; 88312; 88313

== ENCOUNTER 2025-03-03 20:20 | Emergency (ER) | payer MEDICARE, OTHER, SELFPAY ==
[2025-03-03 20:22] VITALS: BP 158/80
[2025-03-03 21:22] VITALS: BP 119/63
[2025-03-03 21:27] VITALS: BMI 33.9
[2025-03-03 21:30] LABS: INR 1.02; PT 13.7 Sec (11.4-14.6)
--- NOTE | 2025-03-03 21:30 | PTCARENOTE ---
patient states he has MDS and a history of low platelets, started today with bright red bleeding from his gums and his leg and generalized weakness. patient appears pale.
[2025-03-03 21:31] LABS: APTT 34.6 Sec (23.4-35.0); Hematocrit 20.4 % (39.0-52.0); Hemoglobin 6.8 g/dL (13.0-18.0); Mean Corp Hgb Conc. 33.3 g/dL (33.0-37.0); Mean Corpuscular Volume 87.2 fL (80.0-94.0); Platelet Count 13 10^3/uL (130-400); Red Cell Dist. Width 13.2 % (11.5-14.5)
[2025-03-03 21:41] LABS: ALT (SGPT) 26 U/L (0-50); AST (SGOT) 18 U/L (17-59); Albumin 3.6 g/dl (3.5-5.0); Alkaline Phosphatase 77 U/L (38-126); Blood Urea Nitrogen 20 mg/dl (9-20); Calcium 8.6 mg/dl (8.4-10.2); Carbon Dioxide 28 mmol/L (22-30); Chloride 107 mmol/L (98-107); Estimated Creatinine Clearance 63 ml/min; Glucose 173 mg/dl (70-99); Potassium 4.2 mmol/L (3.5-5.1); Sodium 139 mmol/L (135-145); Total Protein 6.3 g/dl (6.3-8.2); eGFR > 60.00
[2025-03-03 21:53] LABS: Nucleated Red Blood Cells % 0 % (-)
[2025-03-03 22:00] VITALS: BP 125/61
--- NOTE | 2025-03-03 22:31 | ED.GENMED ---
History of Present Illness
General
Chief Complaint: Abnormal Lab Value
Time Seen by Provider: 03/03/25 20:55
History of Present Illness
History of Present Illness:
69-year-old male with history of MDS presenting to the emergency department for bleeding to the gums. Patient reports that he has been getting blood transfusions every 2 to 3 weeks with oncology, follows with Dr. Aguilar. Does report that last week
Dr. Aguilar stopped the blood transfusions, and patient notes that he is unsure why. He is supposed to follow-up with [facility] next week for another opinion. He notes some chronic dyspnea with exertion. Denies any chest pain. He denies any fever.
He denies abdominal pain. Does note that yesterday he had some bleeding to his left johnson which has since stopped. Denies any blood in his stool. Denies ever needing platelet transfusions. Denies additional medical complaints
Past History
Past History
ED Past Medical History: Asthma and Other (Myelodysplastic syndrome)
ED Past Surgical History: Cholecystectomy and Orthopedic
Social History
Tobacco: Non-smoker
Alcohol: None
Drug: None
Personal:
Living: with family
Phy Exam
Physical Exam
Physical Exam:
General: Pale, mild dryness mucous membranes, nontoxic and in no acute distress
HEENT: protecting airway, mild oozing to right upper gumline, with no rhea bleeding
Neck: appears supple
CV: Normal heart rate, regular rhythm
Resp: No accessory muscle use, no increased work of breathing, lungs clear to auscultation bilaterally
Abd: Soft and non-distended, no tenderness to palpation
Extremities: No deformities, no swelling, no erythema, scattered petechiae to lower extremities
Neuro: alert, no focal neurologic deficit
: deferred
Rectal: deferred
Psych: Normal affect
Skin: Intact
Course
Orders/Labs/Results
Orders:
Orders
03/03/25 21:14
Type And Crossmatch [Type+Screen] Urgent
Complete Blood Count/With Diff Urgent
Comprehensive Metabolic Panel Urgent
PTT Urgent
Prothrombin Time Urgent
03/03/25 22:14
* Blood Bank Products Urgent
Blood Bank Products: *Packed RBC Leuko(PRBC's)
Quantity: 1
Transfuse Today: Yes
Reason: Anemia
03/03/25 22:15
* Blood Bank Products Urgent
Blood Bank Products: *Plt Single Donor Leuko
Quantity: 1
Transfuse Today: Yes
Reason: Thrombocytopenia
Abnormal Lab Results
03/03/25
21:14
WBC 1.9 L* 10^3/uL
(4.8-10.8)
RBC 2.34 L 10^6/uL
(4.70-6.10)
Hgb 6.8 L* D g/dL
(13.0-18.0)
Hct 20.4 L* %
(39.0-52.0)
Plt Count 13 L* 10^3/uL
(130-400)
MPV 13.6 H fL
(7.4-10.4)
Absolute Neuts (auto) 0.8 L* 10^3/uL
(1.4-6.5)
Absolute Lymphs (auto) 0.9 L 10^3/uL
(1.2-3.4)
Immature Gran % 1.0 H %
(0-0.5)
Neutrophils % 41.0 L %
(42.2-75.2)
Glucose 173 H mg/dl
(70-99)
Crossmatch IS Only See Detail
03/03/25 21:14
03/03/25 21:14
Vital Signs
Initial and Last Documented VS:
Initial Vital Signs
Temp Pulse Resp BP Pulse Ox
98.7 F 90 18 158/80 98
03/03/25 20:22 03/03/25 20:22 03/03/25 20:22 03/03/25 20:22 03/03/25 20:22
Last Documented Vital Signs
Temp Pulse Resp BP Pulse Ox
98.7 F 78 16 125/61 99
03/03/25 20:22 03/03/25 22:15 03/03/25 22:15 03/03/25 22:00 03/03/25 22:32
MDM/Problems Addressed
MDM/Problems Addressed:
69-year-old male with history of MDS presenting for concern of bleeding gums. Vital signs on arrival are significant for mild hypertension, which is since resolved.
On exam patient is resting comfortably, no acute distress or discomfort. He does have slight bruising to the right upper gumline, however no significant bleeding. Petechiae to the lower extremities. Concern for low platelets and possibly low
anemia given his MDS and underlying history. Will obtain laboratory analysis
21:45 - Patient's labs are consistent with low platelets and low hemoglobin. Hemoglobin is 6.8, platelets of 13,000. Platelets are not significantly changed from 02/27, however hemoglobin has dropped from 8.7. Will discuss with oncology.
22:00 -in discussion with oncology, note that Dr. Aguilar did recently discuss hospice with the patient due to refractory disease, waiting on final results for repeat biopsy. Recommendation from oncology is a unit of blood as well as platelets due to
bleeding, however in the setting of hemodynamic stability, no significant acute bleeding, okay for disposition home with outpatient follow-up for repeat labs in the office to ensure appropriate response. Patient and family agreeable to plan.
*Pulse Oximetry
SaO2: 99
Oxygen Mode of Delivery: Room air
Patient hypoxic: no
*Critical Care Note
Total Time (30-74mins, 75-104mins- exclusive of procedures): Not Applicable
ED Attending Note
-
Portions of this chart may have been created with voice recognition software.� Occasional wrong word or��sound alike� substitutions may have occurred due to the inherent limitations of voice recognition software.
Discharge Plan
Departure
Prescriptions:
No Action
acetaminophen [Tylenol] 325 mg Tablet
325 mg PO Q4
aspirin 325 mg Tablet
325 mg PO DAILY
Patient Comments:
patient reports not taking any pills currently
prochlorperazine maleate 10 mg Tablet
10 mg PO BID PRN (Reason: Pain)
Patient Comments:
patient denies taking any pills
ondansetron 8 mg Tablet,Disintegrating
8 mg PO Q12H PRN (Reason: pain)
Referrals:
Meliton Gay MD [Family Provider, Family Practice]
Interventions
Interventions:
*Risk Screen - Suicide Last Done: 03/03/25 20:22
*General Assessment Last Done: 03/03/25 20:22
*Neglect/Abuse Screening Last Done: 03/03/25 20:22
Discharge Date and Time
Print Language: ESTONIAN
[2025-03-03 23:10] VITALS: BP 126/59
[2025-03-03 23:26] VITALS: BP 118/65
[2025-03-03 23:45] VITALS: BP 123/62
[2025-03-04] VITALS (7 sets, daily range): BP systolic 118–134; BP diastolic 61–76
== END 2025-03-04 03:25 | disposition home or self-care (01) ==
LOC: EMR 20:20
PROVIDERS: EMERGENCY PHYSICIAN Student in an Organized Health Care Education/Training Program; FAMILY PHYSICIAN Family Medicine
DX: D46.9 Myelodysplastic syndrome, unspecified (principal); D69.6 Thrombocytopenia, unspecified; J45.909 Unspecified asthma, uncomplicated; I10 Essential (primary) hypertension; Z90.49 Acquired absence of other specified parts of digestive tract
CPT/HCPCS: 99283; 36430; 80053; 85025; 85610; 85730; 86850; 86900; 86901; 86920; P9016; P9073

== ENCOUNTER 2025-03-20 10:11 | Emergency (ER) | payer MEDICARE, OTHER, SELFPAY ==
[2025-03-20] VITALS (12 sets, daily range): BP systolic 110–127; BP diastolic 58–69; BMI 33.7
[2025-03-20 10:58] LABS: INR 1.06; PT 14.3 Sec (11.4-14.6)
[2025-03-20 10:59] LABS: APTT 35.8 Sec (23.4-35.0)
[2025-03-20 11:03] LABS: Hematocrit 18.7 % (39.0-52.0); Hemoglobin 6.3 g/dL (13.0-18.0); Mean Corp Hgb Conc. 33.7 g/dL (33.0-37.0); Mean Corpuscular Volume 87.4 fL (80.0-94.0); Platelet Count 11 10^3/uL (130-400); Red Cell Dist. Width 12.8 % (11.5-14.5)
[2025-03-20 11:13] LABS: ALT (SGPT) 27 U/L (0-50); AST (SGOT) 19 U/L (17-59); Albumin 3.6 g/dl (3.5-5.0); Alkaline Phosphatase 77 U/L (38-126); Blood Urea Nitrogen 22 mg/dl (9-20); Calcium 8.7 mg/dl (8.4-10.2); Carbon Dioxide 25 mmol/L (22-30); Chloride 103 mmol/L (98-107); Glucose 177 mg/dl (70-99); Potassium 4.2 mmol/L (3.5-5.1); Sodium 137 mmol/L (135-145); Total Protein 6.4 g/dl (6.3-8.2); eGFR > 60.00
[2025-03-20 11:30] LABS: Nucleated Red Blood Cells % 0 % (-)
--- NOTE | 2025-03-20 14:21 | ED.GENMED ---
History of Present Illness
General
Chief Complaint: Fatigue
Source: patient and records
Exam Limitations: none
Time Seen by Provider: 03/20/25 11:25
History of Present Illness
History of Present Illness:
69yoM with a history of myelodysplastic syndrome with transfusion dependence presenting for evaluation of bleeding gums. Patient reports receives frequent blood transfusions. He was last seen in the ED on 03/03/2025 and received both packed red
blood cells as well as platelets. He follows with Dr. Aguilar and has been refractory to all active therapies. He has been referred to [facility] but hospice has also been recommended. Patient noticed some bleeding gums this morning. He denies any
hematochezia or melena. No dizziness or syncope.
Past History
Past History
ED Past Medical History: Asthma and Other (Myelodysplastic syndrome)
ED Past Surgical History: Cholecystectomy and Orthopedic
Social History
Tobacco: Non-smoker
Alcohol: None
Drug: None
Personal:
Living: with family
Phy Exam
General Physical Exam
General Presentation: no apparent distress
General age: appears older than age
General Skin: warm, dry and pale
General Habitus: elderly
General Mental: alert
ENT Exam
ENT Exam: other (No active gingival bleeding. Poor dentition. )
Cardiovascular Exam
Cardiovascular Exam: regular rate/rhythm
Pulmonary Exam
Pulmonary Exam: lungs clear, no respiratory distress, no rales, no crackles, no rhonchi and no wheezing
Neurological Exam
Neurological Exam: alert
[place] Coma Scale
Eye Opening: Spontaneous
Verbal Response: Oriented
Motor Response: Obeys Commands
GCS Total Score: 15
Skin Exam
Skin Exam: pallor
Psychiatric Exam
Psychiatric Exam: normal mood/affect
Course
Orders/Labs/Results
Orders:
Orders
03/20/25 10:36
Type And Crossmatch [Type+Screen] Urgent
Complete Blood Count/With Diff Urgent
Comprehensive Metabolic Panel Urgent
PTT Urgent
Prothrombin Time Urgent
03/20/25 11:49
Blood Bank Products [* Blood Bank Products] Urgent
Blood Bank Products: *Packed RBC Leuko (PRBC's
Quantity: 1
Transfuse Today: Yes
Reason: Anemia
Blood Bank Products [* Blood Bank Products] Urgent
Blood Bank Products: *Plt Single Donor Leuko
Quantity: 1
Transfuse Today: Yes
Reason: Thrombocytopenia
Abnormal Lab Results
03/20/25
10:36
WBC 2.4 L* 10^3/uL
(4.8-10.8)
RBC 2.14 L 10^6/uL
(4.70-6.10)
Hgb 6.3 L* g/dL
(13.0-18.0)
Hct 18.7 L* %
(39.0-52.0)
Plt Count 11 L* 10^3/uL
(130-400)
Absolute Neuts (auto) 1.0 L 10^3/uL
(1.4-6.5)
Absolute Lymphs (auto) 1.1 L 10^3/uL
(1.2-3.4)
Immature Gran % 1.3 H %
(0-0.5)
Monocytes % 10.2 H %
(1.7-9.3)
APTT 35.8 H Sec
(23.4-35.0)
BUN 22 H mg/dl
(9-20)
Glucose 177 H mg/dl
(70-99)
Crossmatch IS Only See Detail
03/20/25 10:36
03/20/25 10:36
Vital Signs
Initial and Last Documented VS:
Initial Vital Signs
Temp Pulse Resp BP Pulse Ox
98.4 F 93 18 127/62 98
03/20/25 10:30 03/20/25 10:30 03/20/25 10:30 03/20/25 10:30 03/20/25 10:30
Last Documented Vital Signs
Temp Pulse Resp BP Pulse Ox
98.2 F 72 10 113/59 100
03/20/25 16:01 03/20/25 16:01 03/20/25 16:01 03/20/25 16:01 03/20/25 16:01
MDM/Problems Addressed
Differential Diagnosis Includes:
69yoM here with bleeding gums. Hx of myelodysplastic syndrome with frequent blood transfusions. VSS. No active gingival bleeding on exam. Differential diagnosis includes: thrombocytopenia, periodontal disease
Labs obtained in triage. Hemoglobin is 6.3 and platelet count is 11 which is consistent with prior labs. Case discussed with Dr. Aguilar. Plan is to transfuse and discharge after transfusions complete. 1 unit PRBCs and platelets ordered. He has an
appt scheduled with Dr. Aguilar tomorrow.
*Pulse Oximetry
SaO2: 97
Oxygen Mode of Delivery: Room air
Patient hypoxic: no
*Critical Care Note
Total Time (30-74mins, 75-104mins- exclusive of procedures): Not Applicable
ED Attending Note
-
Portions of this chart may have been created with voice recognition software.� Occasional wrong word or��sound alike� substitutions may have occurred due to the inherent limitations of voice recognition software.
Discharge Plan
Departure
Discharge Problem:
Pancytopenia, Myelodysplastic syndrome
Instructions: Myelodysplastic syndromes (MDS)
Prescriptions:
No Action
acetaminophen [Tylenol] 325 mg Tablet
325 mg PO Q4
aspirin 325 mg Tablet
325 mg PO DAILY
Patient Comments:
patient reports not taking any pills currently
prochlorperazine maleate 10 mg Tablet
10 mg PO BID PRN (Reason: Pain)
Patient Comments:
patient denies taking any pills
ondansetron 8 mg Tablet,Disintegrating
8 mg PO Q12H PRN (Reason: pain)
Referrals:
Meliton Gay MD [Family Provider, [facility]]
Activity Restrictions/Additional Instructions:
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 Return to the ER with any new or worsening symptoms.
Interventions
Interventions:
*Risk Screen - Suicide Last Done: 03/20/25 10:30
*General Assessment Last Done: 03/20/25 10:30
Discharge Date and Time
Print Language: URUGUAYAN
== END 2025-03-20 16:34 | disposition home or self-care (01) ==
LOC: EMR 10:11
PROVIDERS: EMERGENCY PHYSICIAN Emergency Medicine; FAMILY PHYSICIAN Family Medicine
DX: D61.818 Other pancytopenia (principal); D46.9 Myelodysplastic syndrome, unspecified; J45.909 Unspecified asthma, uncomplicated
CPT/HCPCS: 99285; 36430; 80053; 85025; 85610; 85730; 86850; 86900; 86901; 86920; P9016; P9073

== ENCOUNTER 2025-05-08 11:49 | Inpatient (IN) | payer OTHER, SELFPAY ==
[2025-05-08] VITALS (19 sets, daily range): BP systolic 58–114; BP diastolic 36–76; BMI 31.1
--- NOTE | 2025-05-08 09:11 | ED.GENMED ---
History of Present Illness
<Agata Valdivia PA-C - Last Filed: 05/08/25 23:23>
General
Chief Complaint: Weakness
Source: patient
Exam Limitations: none
Time Seen by Provider: 05/08/25 08:56
Nursing documentation reviewed up to this point in time: agreed with
History of Present Illness
History of Present Illness:
Patient is a 69-year-old male with history MDS who presents to the emergency department via EMS for generalized weakness. Patient states that this morning he was much more weak than his baseline and unable to get out of bed -he was scheduled for an
appointment with Tito Harris this morning. He denies any pain other than a pleuritic chest pain which started yesterday evening and shortness of breath.
He has an obvious bruise around his left eye which he states is from a few days ago when he ran into a door frame. He did not seek medical care at that time. He denies any headache or neck pain.
Patient denies any abdominal pain or dark/bloody stools. He reports that he has been eating and drinking very little�only water. He did miss his last scheduled blood transfusion. He denies any fever or productive cough.
Past History
<Agata Valdivia PA-C - Last Filed: 05/08/25 23:23>
Past History
ED Past Medical History: Asthma and Other (Myelodysplastic syndrome)
ED Past Surgical History: Cholecystectomy and Orthopedic
Social History
Tobacco: Non-smoker
Alcohol: None
Drug: None
Personal:
Living: with family
Review of Systems
<Agata Valdivia PA-C - Last Filed: 05/08/25 23:23>
Review of Systems
Allergies reviewed?: Yes
All Other Systems: ROS reviewed and negative except as documented in HPI and ROS
Phy Exam
<Agata Valdivia PA-C - Last Filed: 05/08/25 23:23>
Physical Exam
Physical Exam:
Vitals: Tachycardia, hypotensive, afebrile
General: Patient is very pale, chronically ill-appearing
Skin: Pale , warm and dry, no rashes or lesions
Head: Normocephalic, atraumatic
Eyes: Ecchymosis of left periorbital region. Sclera nonicteric. EOMs intact. No nystagmus.
Throat: Dry and pale mucous membranes, protecting airway
Neck: Normal ROM, no cervical spine tenderness, no meningismus
Cardiac: Tachycardic, normal rhythm, no murmurs.
Pulm: Normal respiratory effort. Lungs clear
Abdomen: Abdomen soft and nontender
Extremities: No evidence of cyanosis or edema
Neuro: AAOx3. Grossly intact
Psychiatric: Normal affect.
Course
<Agata Valdivia PA-C - Last Filed: 05/08/25 23:23>
Orders/Labs/Results
Orders:
Orders
05/08/25 08:55
ECG [Electrocardiogram (*1)] Urgent
Reason for Study: Fatigue / Weakness
05/08/25 09:08
Electrocardiogram (*1) Urgent
Reason for Study: Chest Pain
0.9% Sodium Chloride 1000 ml [Nss] 1,000 ml IV BOLUS
05/08/25 09:09
CT Head W/o Iv Contrast Urgent
Comment:
Reason For Exam: unwitnessed fall
05/08/25 09:13
Blood Culture Q30M
ETHAN Source: Blood/Venous
Specimen Description:
05/08/25 09:14
Type+Screen Urgent
Complete Blood Count/With Diff Urgent
Comprehensive Metabolic Panel Urgent
Lactic Acid Q4H
Comment: CANCEL 2nd LACTIC ACID IF 1st LACTIC ACID IS LESS THAN 2
Manual Differential Urgent
Troponin I Urgent
Blood Culture Q30M
ETHAN Source: Blood/Venous
Specimen Description:
05/08/25 09:27
CR Chest Portable - 1 View Urgent
Comment:
Reason For Exam: SOB
Reason Study Needs to be Portable: Patient Unstable
05/08/25 Lunch
Regular
At Your Request: Limited Participation
05/08/25 10:47
Blood Bank Products [* Blood Bank Products] Urgent
Blood Bank Products: *Packed RBC Leuko (PRBC's
Quantity: 1
Transfuse Today: Yes
Reason: Anemia
Case Management Consult ONCE
Case Management Consult: Hospice
Hospice: Evaluation and treat
05/08/25 11:22
ONCOLOGY CONSULT Routine
Consulting Provider: Brian Aguilar
Was physician already notified: Yes
Reason for consult: end stage MDS symptomatic anemia
05/08/25 11:25
Acetaminophen [Tylenol] 650 mg PO NOW STA
05/08/25 11:26
Admit/Transfer Patient As Directed
Co-Sign Provider:
Level of Care: Inpatient admission
Assign to:: Inpatient Hospice
Physician / Group: Melissa Lyon
Diagnosis: Symptomatic Anemia End Stage MDS
Reason for Hospitalization: Symptomatic Anemia End Stage MDS
Expected length of stay greater than two midnights?: Yes
ELOS- Estimated Length of Stay in days: 2
I certify the patient meets the requirements for IP care: Yes
PRN Pain Medication Management As Directed
May give lesser potent ordered pain med per pt: Yes
preference::
Protocol:: Medication orders for pain may be administered in a
manner that supports deferring to patient preference
when the pt is:
- Requesting an ordered lesser potent pain medication.
Least to most potent pain medications are defined
as: acetaminophen < NSAID < tramadol < opioids
(morphine, oxycodone, hydromorphone).
- Requesting a lesser dose of the same medication IF
ORDERED.
- Requesting a less intrusive route of administration
if both routes are prescribed by the provider (PO <
IV).
05/08/25 11:27
Code Status As Directed
Resuscitation Status: Do not resuscitate
Reached after discussion with pt or family/Healthcare POA: Yes
05/08/25 11:28
DNR Bracelet Application ONCE
05/08/25 12:00
Acetaminophen [Tylenol] 650 mg PO Q4HWA
05/08/25 17:02
Bisacodyl [Dulcolax] 10 mg RECTAL DAILYPRN PRN
Glycopyrrolate [Robinul] 0.2 mg IV Q4HPRN PRN
HYDROmorphone [Dilaudid] 0.25 mg IV Q1HPRN PRN
Hyoscyamine Sulfate [Levsin Oral Drops] 0.125 mg SL Q4HPRN PRN
Lorazepam [Ativan] 0.5 mg IV Q2HPRN PRN
Lorazepam [Ativan] 0.5 mg PO Q2HPRN PRN
Mag Hydrox/Al Hydrox/Simeth [Maalox] 30 ml PO Q6HPRN PRN
Magnesium Hydroxide [Milk of Magnesia] 30 ml PO HSPRN PRN
Ondansetron Injectable [Zofran] 4 mg IV Q6HPRN PRN
Prochlorperazine [Compazine] 5 mg IV Q6HPRN PRN
05/08/25 17:02
Transfer Patient As Directed
Transfer to: Medical/Surgical
VTE Contraindication Routine
VTE Mechanical Device Contraindication: Comfort Care mgmt
Pharmocologic Contraindication: Comfort Care mgmt
Activity As Directed
Activity Level: With Assistance
Comfort Measures As Directed
Comment: Pain and Dyspnea assessment every 4 hours
End of Life Symptom Assessment Q4
INT (Intravenous Needle Therapy) As Directed
Vital Signs As Directed
Frequency: Per unit guidelines
Abnormal Lab Results
05/08/25
09:14
RBC 1.69 L 10^6/uL
(4.70-6.10)
Hgb 4.9 L* g/dL
(13.0-18.0)
Hct 14.4 L* %
(39.0-52.0)
Plt Count 8 L* 10^3/uL
(130-400)
Segmented Neutrophils 30 L %
(42-75)
Band Neutrophils 7 H %
(0-3)
Monocytes (Manual) 15 H %
(2-9)
Blast Cells 11 H* %
(-)
Carbon Dioxide 19 L mmol/L
(22-30)
BUN 52 H mg/dl
(9-20)
Creatinine 2.5 H mg/dL
(0.7-1.3)
Glucose 183 H mg/dl
(70-99)
Lactic Acid 5.6 H* mmol/L
(0.7-2.0)
ALT 88 H U/L
(0-50)
Alkaline Phosphatase 231 H U/L
(38-126)
Albumin 3.4 L g/dl
(3.5-5.0)
Crossmatch IS Only See Detail
05/08/25 09:14
05/08/25 09:14
Vital Signs
Initial and Last Documented VS:
Initial Vital Signs
Temp Pulse Resp
98.2 F 118 20
05/08/25 08:53 05/08/25 08:53 05/08/25 08:53
Last Documented Vital Signs
Temp Pulse Resp BP Pulse Ox
98.8 F 112 17 83/61 94
05/08/25 20:14 05/08/25 20:14 05/08/25 20:14 05/08/25 20:14 05/08/25 20:14
<Inder Wilkins MD - Last Filed: 05/08/25 10:33>
Orders/Labs/Results
Orders:
Orders
05/08/25 08:55
ECG [Electrocardiogram (*1)] Urgent
Reason for Study: Fatigue / Weakness
05/08/25 09:08
Electrocardiogram (*1) Urgent
Reason for Study: Chest Pain
0.9% Sodium Chloride 1000 ml [Nss] 1,000 ml IV BOLUS
05/08/25 09:09
CT Head W/o Iv Contrast Urgent
Comment:
Reason For Exam: unwitnessed fall
05/08/25 09:13
Blood Culture Q30M
ETHAN Source: Blood/Venous
Specimen Description:
05/08/25 09:14
Type+Screen Urgent
Complete Blood Count/With Diff Urgent
Comprehensive Metabolic Panel Urgent
Lactic Acid Q4H
Comment: CANCEL 2nd LACTIC ACID IF 1st LACTIC ACID IS LESS THAN 2
Manual Differential Urgent
Troponin I Urgent
Blood Culture Q30M
ETHAN Source: Blood/Venous
Specimen Description:
05/08/25 09:27
CR Chest Portable - 1 View Urgent
Comment:
Reason For Exam: SOB
Reason Study Needs to be Portable: Patient Unstable
05/08/25 Lunch
Regular
At Your Request: Limited Participation
05/08/25 10:47
Blood Bank Products [* Blood Bank Products] Urgent
Blood Bank Products: *Packed RBC Leuko (PRBC's
Quantity: 1
Transfuse Today: Yes
Reason: Anemia
Case Management Consult ONCE
Case Management Consult: Hospice
Hospice: Evaluation and treat
05/08/25 11:22
ONCOLOGY CONSULT Routine
Consulting Provider: Brian Aguilar
Was physician already notified: Yes
Reason for consult: end stage MDS symptomatic anemia
05/08/25 11:25
Acetaminophen [Tylenol] 650 mg PO NOW STA
05/08/25 11:26
Admit/Transfer Patient As Directed
Co-Sign Provider:
Level of Care: Inpatient admission
Assign to:: Inpatient Hospice
Physician / Group: Melissa Lyon
Diagnosis: Symptomatic Anemia End Stage MDS
Reason for Hospitalization: Symptomatic Anemia End Stage MDS
Expected length of stay greater than two midnights?: Yes
ELOS- Estimated Length of Stay in days: 2
I certify the patient meets the requirements for IP care: Yes
PRN Pain Medication Management As Directed
May give lesser potent ordered pain med per pt: Yes
preference::
Protocol:: Medication orders for pain may be administered in a
manner that supports deferring to patient preference
when the pt is:
- Requesting an ordered lesser potent pain medication.
Least to most potent pain medications are defined
as: acetaminophen < NSAID < tramadol < opioids
(morphine, oxycodone, hydromorphone).
- Requesting a lesser dose of the same medication IF
ORDERED.
- Requesting a less intrusive route of administration
if both routes are prescribed by the provider (PO <
IV).
05/08/25 11:27
Code Status As Directed
Resuscitation Status: Do not resuscitate
Reached after discussion with pt or family/Healthcare POA: Yes
05/08/25 11:28
DNR Bracelet Application ONCE
05/08/25 12:00
Acetaminophen [Tylenol] 650 mg PO Q4HWA
05/08/25 17:02
Bisacodyl [Dulcolax] 10 mg RECTAL DAILYPRN PRN
Glycopyrrolate [Robinul] 0.2 mg IV Q4HPRN PRN
HYDROmorphone [Dilaudid] 0.25 mg IV Q1HPRN PRN
Hyoscyamine Sulfate [Levsin Oral Drops] 0.125 mg SL Q4HPRN PRN
Lorazepam [Ativan] 0.5 mg IV Q2HPRN PRN
Lorazepam [Ativan] 0.5 mg PO Q2HPRN PRN
Mag Hydrox/Al Hydrox/Simeth [Maalox] 30 ml PO Q6HPRN PRN
Magnesium Hydroxide [Milk of Magnesia] 30 ml PO HSPRN PRN
Ondansetron Injectable [Zofran] 4 mg IV Q6HPRN PRN
Prochlorperazine [Compazine] 5 mg IV Q6HPRN PRN
05/08/25 17:02
Transfer Patient As Directed
Transfer to: Medical/Surgical
VTE Contraindication Routine
VTE Mechanical Device Contraindication: Comfort Care mgmt
Pharmocologic Contraindication: Comfort Care mgmt
Activity As Directed
Activity Level: With Assistance
Comfort Measures As Directed
Comment: Pain and Dyspnea assessment every 4 hours
End of Life Symptom Assessment Q4
INT (Intravenous Needle Therapy) As Directed
Vital Signs As Directed
Frequency: Per unit guidelines
Abnormal Lab Results
05/08/25
09:14
RBC 1.69 L 10^6/uL
(4.70-6.10)
Hgb 4.9 L* g/dL
(13.0-18.0)
Hct 14.4 L* %
(39.0-52.0)
Plt Count 8 L* 10^3/uL
(130-400)
Segmented Neutrophils 30 L %
(42-75)
Band Neutrophils 7 H %
(0-3)
Monocytes (Manual) 15 H %
(2-9)
Blast Cells 11 H* %
(-)
Carbon Dioxide 19 L mmol/L
(22-30)
BUN 52 H mg/dl
(9-20)
Creatinine 2.5 H mg/dL
(0.7-1.3)
Glucose 183 H mg/dl
(70-99)
Lactic Acid 5.6 H* mmol/L
(0.7-2.0)
ALT 88 H U/L
(0-50)
Alkaline Phosphatase 231 H U/L
(38-126)
Albumin 3.4 L g/dl
(3.5-5.0)
Crossmatch IS Only See Detail
05/08/25 09:14
05/08/25 09:14
Vital Signs
Initial and Last Documented VS:
Initial Vital Signs
Temp Pulse Resp
98.2 F 118 20
05/08/25 08:53 05/08/25 08:53 05/08/25 08:53
Last Documented Vital Signs
Temp Pulse Resp BP Pulse Ox
98.8 F 112 17 83/61 94
05/08/25 20:14 05/08/25 20:14 05/08/25 20:14 05/08/25 20:14 05/08/25 20:14
<Agata Valdivia PA-C - Last Filed: 05/08/25 23:23>
MDM/Problems Addressed
Differential Diagnosis Includes:
Not limited to: Symptomatic anemia, progression of disease, sepsis, pericarditis/myocarditis, pulmonary embolism, acute coronary syndrome, etc.
MDM/Problems Addressed:
69 year-old male with history MDS presenting with generalized weakness. No fevers. Missed last scheduled transfusion. No black or bloody stools.
Patient hypotensive and tachycardic on arrival, however afebrile. On exam, patient appears chronically ill, weak, and pale appearing. Very dry mucous membranes. Abdomen benign. Cardio/pulmonary assessment unremarkable.
Suspect likely symptomatic anemia, however, given tachycardia, hypotension � unable to rule out infectious process. He also has evidence of minor head trauma with periorbital ecchymosis a few days old. He is neurologically intact.
ED plan: labs, type & screen, CT head and chest x-ray. Will send blood cultures, give IV fluids.
Update: Labs reveals significant anemia with hgb of 4.9 and thrombocytopenia w/ platelet level of 8000. Chemistry reveals renal insufficiency and lactic acidosis likely secondary to anemia. Chest x-ray and head CT without acute findings.
Given history of chest discomfort and abnormal vital signs � considered PE study, however, feel symptoms likely related to significant anemia and with renal insufficiency will hold on PE study for now.
Two units PRBCs ordered. Blood consent signed into chart. Patient will require admission for further management. Oncology aware.
Update: Pending admission � oncology was down to evaluate patient bedside. He did initiate discussion of possible hospice. Patient and family are agreeable with this plan. Will be comfort measures however will give one unit PRBCs per stepdaughter�s
request.
Patient will likely require inpatient hospice. He was accepted to hospitalist service.
Chronic conditions affecting care:
Myelodysplastic syndrome
Acute Exacerbation and/or Progression of Chronic Illness:
Symptomatic anemia
<Agata Valdivia PA-C - Last Filed: 05/08/25 23:23>
*Radiology
Radiology exam reviewed: radiology read reviewed
*Pulse Oximetry
SaO2: 95
Patient hypoxic: no
*EKG
Interpreted by ED Provider?: Yes
EKG Intrepretation Date: 05/08/25
Interpretation: abnormal
Comparison EKG: no changes
Heart Rate: 116
Rate: tachycardiac
Rhythm: sinus
[place]: normal axis
Interval: normal QT interval
QRS Pattern: normal QRS
Ischemia: no ischemia
*Professor Of Social Work Interpretation
Rate: tachycardiac
Interpretation: abnormal
Heart Rate: 112
Rhythm: sinus
*Critical Care Note
Total Time (30-74mins, 75-104mins- exclusive of procedures): Not Applicable
<Agata Valdivia PA-C - Last Filed: 05/08/25 23:23>
Patient Management
Discussion with other providers: Hospitalist and Air Duct Mechanic (Case discussed with hematology/oncology)
Escalation/DeEscalation of care consider admission/obs:
Admit for hospice
ED Attending Note
<Agata Valdivia PA-C - Last Filed: 05/08/25 23:23>
-
Portions of this chart may have been created with voice recognition software.� Occasional wrong word or��sound alike� substitutions may have occurred due to the inherent limitations of voice recognition software.
<Inder Wilkins MD - Last Filed: 05/08/25 10:33>
ED Attending Note
Patient seen and examined by attending physician: Yes
I performed the substantive portion of visit, reviewed & personally made and approve the management plan that is documented in note by myself or LÓPEZ.: Yes
ED Attending Note:
69-year-old male with a history of myelodysplastic disease presents with severe weakness. Much worse over the last 24 hours. He did hit his head on the corner days ago. No unusual headache no neck pain no black or tarry stools no other
complaints. Per the stepdaughter, this has been going on for a while and she is recommended evaluation for a while but it is getting worse.
On exam patient is chronically ill-appearing. Hypotensive. Tachycardic. Pale. No respiratory distress. Lungs clear and equal. Heart tachycardic and regular. Abdomen soft and nontender. Grossly nonfocal.
Previous records reviewed.
Impression severe weakness. Most likely etiology would be secondary to his anemia and myelodysplastic disease. Hemoglobin came back at 4.9. Clearly a significant explanation for his symptoms. Other etiologies also being evaluated. We will CT
his head with the thrombocytopenia and head injury although the head injury appeared mild. He does have some ecchymosis around his left orbit. Blood will be ordered. Renal insufficiency. Patient is critically ill. Discussed with patient's
stepdaughter.
[id number]... Discussed with patient's primary library clerical assistant. They are likely will be discussions of hospice at this point.
Discharge Plan
Departure
Patient Disposition: Admit
Date of Disposition: 05/08/25
Time of Disposition: 10:02
Presentation/result/management discussed w/ accepting MD/DO: Hospitalist
Discharge Problem:
Anemia, MDS (myelodysplastic syndrome), Thrombocytopenia
Interventions
Interventions:
*Risk Screen - Suicide Last Done: 05/08/25 08:53
*General Assessment Last Done: 05/08/25 08:53
*Neglect/Abuse Screening Last Done: 05/08/25 08:53
*ED COVID-19 Vaccine History Last Done: 05/08/25 08:53
*ED Influenza Vaccine History Last Done: 05/08/25 08:53
[facility] Fall Risk Assessment Tool Last Done: 05/08/25 08:53
*Nursing Disposition Last Done: 05/08/25 16:56
ED- Cardiac Assessment Last Done: 05/08/25 09:19
ED- Neurological Assessment Last Done: 05/08/25 09:19
ED- Pulmonary Assessment Last Done: 05/08/25 09:45
Discharge Date and Time
Discharge Date/Time: 05/08/25 16:57
[2025-05-08 09:37] LABS: ALT (SGPT) 88 U/L (0-50); AST (SGOT) 52 U/L (17-59); Albumin 3.4 g/dl (3.5-5.0); Alkaline Phosphatase 231 U/L (38-126); Blood Urea Nitrogen 52 mg/dl (9-20); Calcium 8.8 mg/dl (8.4-10.2); Carbon Dioxide 19 mmol/L (22-30); Chloride 104 mmol/L (98-107); Estimated Creatinine Clearance 29 ml/min; Glucose 183 mg/dl (70-99); Potassium 4.7 mmol/L (3.5-5.1); Sodium 135 mmol/L (135-145); Total Protein 6.6 g/dl (6.3-8.2); eGFR 26.80
[2025-05-08] MEDS: NSS 1000 IV (09:38)
[2025-05-08 09:46] LABS: Hematocrit 14.4 % (39.0-52.0); Hemoglobin 4.9 g/dL (13.0-18.0); Mean Corp Hgb Conc. 34.0 g/dL (33.0-37.0); Mean Corpuscular Volume 85.2 fL (80.0-94.0); Platelet Count 8 10^3/uL (130-400); Red Cell Dist. Width 13.7 % (11.5-14.5)
[2025-05-08 09:48] LABS: Troponin I 0.019 ng/ml
--- NOTE | 2025-05-08 10:15 | HPS.HSE ---
Family Physician
-
Family Physician: Meliton Gay
Chief Complaint
-
weakness
History of Present Illness
69M MDS refractory to treatment with associate anemia thrombocytopenia presented for evaluation weakness, fall, and pleuritic chest pain. Noted severe Anemia 4.9 with associate lactic acidosis. Recommended hospice care prior as patient has failed
all standard therapies for MDS. Previously refused, patient and daughter/guardian Peggy now agreeable following discussion pt's outpt Mental Health Counselor Dr Aguilar.
Medical History
Past Medical History
Past Medical History: Reports Other (as above)
Past Surgical History: Reports Other (as above)
Social History
Tobacco: Non-smoker
Alcohol: None
Drug: None
Living: With Family
Family History
Family History: Not pertinent
Allergies / Home Medications
Allergies reflects when Allergies were last updated in [employer].
Home Medications with original date entered in [employer]
Allergy/Medication List:
Allergies
Allergy/AdvReac Type Severity Reaction Status Date / Time
Horse/Equine Containing Allergy 'years Verified 05/08/25 08:53
Products ago,
unsure of
reaction'
Home Medications
ondansetron HCl 8 mg tablet 8 mg PO Q8HPRN PRN NAUSEA 05/08/25
Review of Systems
-
A 12 point ROS was completed and negative except as noted: Yes
Constitutional: Reports Other (as below)
Physical Exam
Vital Signs
Vital Signs
Temp Pulse Resp BP
98.2 F 116 28 87/51
05/08/25 08:53 05/08/25 09:00 05/08/25 09:00 05/08/25 08:57
Physical Exam
General: Other (as below)
Laboratory Results
-
05/08/25 09:14
05/08/25 09:14
Laboratory Results
Total Bilirubin 0.5 mg/dl (0.2-1.3) 05/08/25 09:14
AST 52 U/L (17-59) 05/08/25 09:14
ALT 88 U/L (0-50) H 05/08/25 09:14
Alkaline Phosphatase 231 U/L (38-126) H 05/08/25 09:14
Troponin I 0.019 ng/ml 05/08/25 09:14
Impression/Plan
-
ROS
General: reports chills denies fever
Neuro: Denies seizure reports dizziness lightheadedness
Psych: denies depression hallucinations confusion manic episodes
Endocrine: Denies polyuria polydipsia polyphagia heat/cold intolerance
HEENT: Denies blindness visual disturbances epistaxis
Pulmonary: reports shortness of breath pleuritic chest pain
Cardiovascular: denies chest pain palpitations leg swelling
Hematology: denies signs symptoms of anemia easy bruising/bleeding
Gastrointestinal: denies nausea vomiting diarrhea constipation hematemesis hematochezia melena
Genito-Urinary: denies retention incontinence dysuria
Musculoskeletal: denies joint pain weakness
Dermatology: denies rash laceration reports bruising left eye
Physical Exam
General: Pallor
HEENT: Throat clear. PERRLA Normocephalic atraumatic
NECK: Supple. No JVD Carotid Bruits
RESPIRATORY: Lungs clear to auscultation. No crackles wheezes stridor
CVS: S1, S2 normal. RRR. No murmur, rub or gallop.
ABDOMEN: Soft, non-tender. No distension. BS+/normal.
EXTREMITIES: No peripheral cyanosis or edema.
DEPUTY CLERK: AOx2 disoriented to time, largely coherent conversant
IMPRESSION:
69M MDS refractory to treatment with associate anemia thrombocytopenia presented for evaluation weakness, fall, and pleuritic chest pain. Noted severe Anemia 4.9 with associate lactic acidosis. Recommended hospice care prior as patient has failed
all standard therapies for MDS. Previously refused, patient and daughter/guardian Peggy now agreeable following discussion pt's outpt Mental Health Counselor Dr Aguilar. Labs significant for severe anemia thrombocytopenia and HARRY. CXR and CT head noted no
acute abn's
PLAN:
#Severe Anemia Symptomatic
#Severe Thromobocytopenia
#End Stage Disease MDS
#Acute Kidney Injury
#Lactic Acidosis likely 2/2 severe anemia
med/surg admit
Hospice Eval Requested
Hematology Eval appreciated PRBC transfusion as per stepdaughter's request, comfort measures
pain control
DNR as per patient and stepdaughter Peggy
Discussed with patient and patient's stepdaughter/guardian Peggy
I spent a total of 75 minutes with the patient or on the floor. More than 50% of this time involved counseling and coordination of care.
--- NOTE | 2025-05-08 10:49 | CON.ONC ---
Consultation
-
Date Consultation Requested: 05/08/25
Date Consultation Performed: 05/08/25
Requesting Provider: Franky
Performing Provider: Jeff
Reason for Consultation: MDS anemia
Impression
Impression
Refractory MDS with severe cytopenias
Plan
Plan
Unfortunately he has failed all standard therapies and is only eligible for palliative hospice care. Family had been resistant but now accepting. He will be given 1 u PRBC as per his SD's wishes and then transition to comfort measures with
hospice. He has been liveing with her and she is his guardian. I would minimize additional workup as only focus on comfort measures at this time.
Patient History
History of Present Illness
CC: Severe weakness, fall
HPI: 69-year-old male well known to me with history refractory MDS who presents to the ER via EMS for generalized weakness. He states he was much more weak than his baseline and unable to get out of bed. I suggested hospice and he declined instead
deciding he wanted to be seen at [facility] for an opinion. His step daughter states that he apparently fell and sustained a left black eye. He denies any headache or neck pain.
Patient denies any abdominal pain or dark/bloody stools. Very poor appetite. He did miss his last scheduled blood transfusion. He denies any fever or productive cough. His step daughter is now agreeable to hospice but wishes a PRBC transfusion
as long as he is here.
Past-Medical/Surgical History
PMH: Asthma and Myelodysplastic syndrome
PSH: Cholecystectomy and Orthopedic
Social History
Tobacco: Non-smoker
Alcohol: None
Drug: None
Personal:
Living: with step daughter's family
Patient Medication
�Medication �Instructions �Recorded �Confirmed �Last Taken �Type
ondansetron HCl 8 mg tablet 8 mg PO Q8HPRN PRN NAUSEA 05/08/25 05/08/25 Unknown History
Physical Exam
-
General: Appears Chronically Ill and Other (lethargic, PS 4)
Cardiology: S1 and S2
Pulmonary: Clear
GI: Soft
Extremities: No C/C/E
Labs
Lab Results
WBC 9.1 10^3/uL (4.8-10.8) 05/08/25 09:14
RBC 1.69 10^6/uL (4.70-6.10) L 05/08/25 09:14
Hgb 4.9 g/dL (13.0-18.0) L* 05/08/25 09:14
Hct 14.4 % (39.0-52.0) L* 05/08/25 09:14
MCV 85.2 fL (80.0-94.0) 05/08/25 09:14
MCH 29.0 pg (27.0-31.0) 05/08/25 09:14
MCHC 34.0 g/dL (33.0-37.0) 05/08/25 09:14
RDW 13.7 % (11.5-14.5) 05/08/25 09:14
Plt Count 8 10^3/uL (130-400) L* 05/08/25 09:14
MPV Not Reportable 05/08/25 09:14
Creatinine 2.5 mg/dL (0.7-1.3) H 05/08/25 09:14
Vital Signs
Vital Signs
Temp Pulse Resp BP
98.2 F 116 28 87/51
05/08/25 08:53 05/08/25 09:00 05/08/25 09:00 05/08/25 08:57
[2025-05-08 11:31] LABS: Absolute Neutrophils -Man Diff 3.3 10^3/uL (1.4-6.5)
[2025-05-08 11:32] LABS: Normal RBC Morphology Yes; Platelets Checked Yes; Total Cells Counted 100
--- NOTE | 2025-05-08 11:55 | CM ---
Chart reviewed. Consult reviewed
Spoke with ED team Inder Wilkins
Unable to complete IA at this time
hospice referral sent to hospice via [facility] and TT sent to [facility]
--- NOTE | 2025-05-08 12:48 | HOSPNOTE ---
Spoke with daughter and explained inpatient hospice and the philosophy. The plan is to directly admit inpatient hospice. The daughter is in agreement and will sign consent forms and does not wish for any further blood transfusions. Admissions was
called and the plan is for a patient to get a bed on [facility]. Patient will be seen daily by hospice.
--- NOTE | 2025-05-08 21:17 | HOSPNOTE ---
Patient was admitted inpatient hospice level of care. hospice will visit daily
[2025-05-09 07:45] VITALS: BP 102/63
[2025-05-09] MEDS: DILAUDID 0.25 MG IV ×6 (08:20→22:00)
--- NOTE | 2025-05-09 10:19 | HOSPNOTE ---
Patient is on hospice services. Patient was admitted yesterday from the ED. Patient has received doses of morphine for shortness of breath. No family was present during visit. patient had a complete bed bath. Patient continues to be inpatient
appropriate for management of shortness of breath requiring IV medications. Patient will be seen daily.
--- NOTE | 2025-05-09 11:03 | W.PN.HOSP.TC ---
Today's Communication/Plan
-
cont comfort measures
Assessment / Plan
Assessment / Plan
Limited Physical Exam Comfort Measures
General: No acute distress, appears comfortable, pallor
Pulm: stable respiratory status on room air, non-labored respirations
Neuro/Psych: Calm, Awake, Alert, Conversant, largely coherent
IMPRESSION:
69M MDS refractory to treatment with associate anemia thrombocytopenia presented for evaluation weakness, fall, and pleuritic chest pain. Noted severe Anemia 4.9 with associate lactic acidosis. Recommended hospice care prior as patient has failed
all standard therapies for MDS. Previously refused, patient and daughter/guardian Peggy now agreeable following discussion pt's outpt Bag Sorter Dr Aguilar. Labs significant for severe anemia thrombocytopenia and HARRY. CXR and CT head noted no
acute abn's
PLAN:
#Severe Anemia Symptomatic
#Severe Thromobocytopenia
#End Stage Disease MDS
#Acute Kidney Injury
#Lactic Acidosis likely 2/2 severe anemia
inpt hospice admission
Hospice Eval appreciated
Hematology Eval appreciated PRBC transfusion as per stepdaughter's request, comfort measures
pain control
DNR as per patient and stepdaughter Peggy
Discussed with patient and patient's stepdaughter/guardian Peggy
I spent a total of 40 minutes with the patient or on the floor. More than 50% of this time involved counseling and coordination of care.
Anticipated Discharge: 24 - 48 hours
Subjective/Interval History
-
Date of Service: May 09, 2025
No acute distress, resting comfortably in bed, Awake Alert largely coherent. Overall reports feeling well. Pain well controlled with current pain regimen. Daughters present during evaluation.
Objective Data
-
Vital Signs:
Vital Signs
Temp Pulse Resp BP Pulse Ox
97.6 F 105 18 102/63 96
05/09/25 07:45 05/09/25 07:45 05/09/25 07:45 05/09/25 07:45 05/09/25 07:45
I&O
05/08/25 05/09/25 05/10/25
06:59 06:59 06:59
Intake Total 250 / 250
Balance 250 / 250
--- NOTE | 2025-05-09 13:09 | HOSPNOTE ---
Tipple Boss visited patient in room 2140. Patient's sister and brother in law were present for the visit. Patient was awake on verbal stimulation and reported no pain today. Patient was a little restless but would dose back to sleep. Tipple Boss did a
life review with the family. Patient is a 69 year old male with a diagnosis of MDS and was admitted with dyspnea. Johana is from [place] and his daughter was living with him but could not care for him when he had a fall. 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 He was diagnosed about 6 years ago but treatments have not shown any improvements. Patient is not taoism or did not have any nondenominational affiliation. Tipple Boss provided emotional support to the family through active listening,
presence and prayer. Tipple Boss will visit on request.
--- NOTE | 2025-05-09 15:04 | HOSPNOTE ---
ASSEMBLER LAY UPS VISITED 69 YEAR-OLD PATIENT TO CONDUCT INITIAL CONSULTING GROUP ANALYST ASSESSMENT. PATIENT RECENTLY ADMITTED ONTO HOSPICE SERVICES AND GIP LEVEL OF CARE WITH THE PRIMARY DIAGNOSIS OF MYELODYSPLASTIC SYNDROME. NURSE REPORTED PATIENT RESTING
COMFORTABLY MEDICATIONS WERE ADMINISTERED, PATIENT SISTER VISITED, AND PATIENT'S STEPDAUGHTER BENNY RETURNING AROUND 5:00 P.M. CONSULTING GROUP ANALYST GREETED PATIENT UPON ENTERING HIS ROOM, NO RESPONSE. TV ON AND PATIENT ASLEEP AND APPEARED TO BE RESTING
COMFORTABLY EVIDENT BY HIS SNORING. PATIENT AWAKEN BRIEFLY HE WAS TRYING TO REPOSITION HIMSELF. CONSULTING GROUP ANALYST ASKED PATIENT HOW HE WAS DOING, HE RESPONDED ROUGH, HE'S SLEEPY, HE DENIED PAIN, AND REPORTED HE'S NOT HUNGRY. PATIENT SHUFFLED AROUND IN THE
BED TO GET COMFORTABLE, CONSULTING GROUP ANALYST ASKED PATIENT IF HE WANTED CONSULTING GROUP ANALYST TO GET NURSE TO GIVE HIM SOME MEDICINE, HE RESPONDED NO AND DRIFTED OFF TO SLEEP, NO SIGNS OF DISTRESS OBSERVED. PRAYER AND EMOTIONAL SUPPORT PROVIDED. CONSULTING GROUP ANALYST CONTACTED PATIENT'S STEPDAUGHTER
BENNY TO CHECK ON HER AND TO PROVIDE UPDATES FROM TODAY'S VISIT. BENNY REPORTED SHE'S OKAY SHE HAS HER AND A LOT OF SUPPORT FROM FAMILY AND FRIENDS. SHE REPORTED PUTTING PATIENT ON HOSPICE WAS HARD BUT IT'S WHAT'S BEST FOR HIM. SHE
REPORTED HER MOTHER 5 YEARS AGO AND SHE WAS HER BEST FRIEND AND THAT PATIENT HAS BEEN IN HER LIFE SINCE SHE WAS 6 YEARS OLD AND SHE'S OVER 40 NOW, PATIENT IS THE ONLY FATHER SHE KNOWS AND LOVES. BENNY IS THE PRIMARY CAREGIVER AND POA.
PATIENT EMPLOYED AT [employer] FOR YEARS AND RETIRED 3 OR 4 YEARS AGO DUE TO HIS ILLNESS. 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 HE PUT TOGETHER PUZZLES THAT HAD OVER 1K PIECES. [place] LOVED
[place] WITH [place] NIECES AND NEPHEWS.
HE'S CONGREGATION-CHRISTIAN AND IS AFFILIATED WITH [facility]. HIS WISHES ARE TO BE BURIED ALONGSIDE HIS SPOUSE IN [place] [place] [facility] AT [address] [place] [id number] IS IN CHARGE OF THE
ARRANGEMENTS. FAMILY APPEARED TO BE COPING APPROPRIATELY AND BEREAVEMENT SERVICES DECLINED AT THIS TIME. MUCH EMOTIONAL SUPPORT PROVIDED
PATIENT MEETS [facility] FOR SN ASSESSMENTS AND MANAGEMENT OF DYSPNEA THAT COULD NOT BE MANAGED AT HOME AND/OR IN AN OUTPATIENT SETTING. DISCHARGE PLANNING CONTINUES.
CONSULTING GROUP ANALYST WILL PROVIDE SUPPORTIVE SERVICES ONCE A WEEK WHILE ON [facility] LEVEL OF CARE.
[2025-05-09] MEDS: ATIVAN 0.5 MG IV (17:07)
[2025-05-09] MEDS: NSS (PRESERVATIVE FREE) 0.25 ML IV (17:08)
[2025-05-09 19:32] VITALS: BP 112/64
[2025-05-09] MEDS: HALDOL 0.5 MG IV (20:52)
[2025-05-10] MEDS: ATIVAN 0.5 MG IV ×2 (00:47→12:14)
[2025-05-10] MEDS: DILAUDID 0.25 MG IV ×7 (00:49→12:15)
[2025-05-10] MEDS: DILAUDID 50 IV (04:47)
--- NOTE | 2025-05-10 07:27 | W.PN.HOSP.TC ---
Today's Communication/Plan
-
cont comfort measures
Assessment / Plan
Assessment / Plan
Limited Physical Exam Comfort Measures
General: No acute distress, appears comfortable, pallor
Pulm: loudly snoring some times apneic
Neuro/Psych: sleeping/nonverbal
IMPRESSION:
69M MDS refractory to treatment with associate anemia thrombocytopenia presented for evaluation weakness, fall, and pleuritic chest pain. Noted severe Anemia 4.9 with associate lactic acidosis. Recommended hospice care prior as patient has failed
all standard therapies for MDS. 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 Labs significant for severe anemia thrombocytopenia and HARRY. CXR and CT head noted no
acute abn's
PLAN:
#Severe Anemia Symptomatic
#Severe Thromobocytopenia
#End Stage Disease MDS
#Acute Kidney Injury
#Lactic Acidosis likely 2/2 severe anemia
inpt hospice admission
Hospice Eval appreciated
Hematology Eval appreciated PRBC transfusion as per stepdaughter's request, comfort measures
Lomeli for end of life care
pain control/tx SOB started on dilaudid gtt 05/09
DNR
stepdaughter/guardian Peggy updated, patient may pass any day now
I spent a total of 37 minutes with the patient or on the floor. More than 50% of this time involved counseling and coordination of care.
Anticipated Discharge: Within 24 hours
Subjective/Interval History
-
Date of Service: May 10, 2025
No acute distress, appears comfortable at this time, on dilaudid gtt.
Objective Data
-
Vital Signs:
Vital Signs
Temp Pulse Resp BP Pulse Ox
97.4 F 120 18 112/64 93
05/09/25 19:32 05/09/25 19:32 05/09/25 19:32 05/09/25 19:32 05/09/25 23:35
I&O
05/09/25 05/10/25 05/11/25
06:59 06:59 06:59
Intake Total 250 / 250 120 / 120
Output Total 425 / 425
Balance 250 / 250 -305 / -305
[2025-05-10 08:02] VITALS: BP 94/57
[2025-05-10] MEDS: ROBINUL 0.2 MG IV ×2 (08:13→12:15)
[2025-05-10] MEDS: NSS (PRESERVATIVE FREE) 0.25 ML IV (12:15)
--- NOTE | 2025-05-10 16:06 | W.PN.DEATH ---
Pronouncement of
-
Called to see patient to pronounce.
No spontaneous heart tones or respirations noted.
Patient not responsive to verbal stimuli.
Patient is pronounced .
Time of : 15:55
Date of : 05/10/25
Cause of : end stage MDS
Family Notified: Yes
--- NOTE | 2025-05-10 16:08 | W.DCSUMMARY ---
Discharge Summary
Discharge Data
Date of Admission: 05/08/25
Date of Discharge: 05/10/25
-
Pending Results: No
Discharge Plan
-
Patient Disposition:
Date/Time
Date/Time: 05/10/25 15:55
Discharge Date and Time
Print Language: ROMANIAN
--- NOTE | 2025-05-10 18:20 | PTCARENOTE ---
Postmortem care provided to patient, IV and Lomeli removed, Dilaudid gtt wasted with Elvi RAMIREZ. [facility] notified by this RN. No family or belongings at bedside.
== END 2025-05-10 15:55 | disposition expired | DRG 812 ==
LOC: 2 NORTH 11:49
PROVIDERS: Physician Assistant; ADMITTING PHYSICIAN Internal Medicine; CONSULT PHYSICIAN Internal Medicine Hematology & Oncology; EMERGENCY PHYSICIAN Emergency Medicine; FAMILY PHYSICIAN Family Medicine
DX: D46.9 Myelodysplastic syndrome, unspecified (principal); E87.20 Acidosis, unspecified; N17.9 Acute kidney failure, unspecified; D69.6 Thrombocytopenia, unspecified; W19.XXXA Unspecified fall, initial encounter; D63.0 Anemia in neoplastic disease; J45.909 Unspecified asthma, uncomplicated; S00.12XA Contusion of left eyelid and periocular area, initial encounter; Z90.49 Acquired absence of other specified parts of digestive tract
CPT/HCPCS: 70450; 71045; 80053; 83605; 84484; 85025; 86850; 86900; 86901; 86920; 87040; 93005; 96360; 99285; P9016